=== PATIENT | female | born 1960 | race Caucasian/White ===

== ENCOUNTER 2016-11-04 12:03 | Inpatient (IN) | payer BC ==
[2016-11-04] MEDS ORDERED: Aspirin Low Dose CHEW TAB* 81 MG PO ONE (12:36)
[2016-11-04 12:54] LABS: Hematocrit 43 % (35-47); Hemoglobin 14.3 g/dl (12.0-16.0); Mean Corpuscular HGB Conc 33 g/dl (31-36); Mean Corpuscular Hemoglobin 31 pg (27-31); Mean Corpuscular Volume 93 fL (80-97); Mean Platelet Volume 8 um3 (7.4-10.4); Red Blood Count 4.65 10^6/ul (4.0-5.4); Red Cell Distribution Width 14 % (10.5-15); White Blood Count 13.9 10^3/ul (3.5-10.8)
[2016-11-04 12:55] LABS: Add Diff/Slide Review? Slide Review Added; Comments Flag Yes
[2016-11-04 13:06] LABS: Albumin 3.1 g/dL (3.2-5.2); BUN/Creatinine Ratio 32.1 (8-20); Calcium 8.9 mg/dL (8.6-10.3); EGFR African American 322.9 (>60); Globulin 2.4 g/dL (2-4); Potassium 4.3 mmol/L (3.5-5.0); Total Bilirubin 0.4 mg/dL (0.2-1.0); Total Protein 5.5 g/dL (6.4-8.9)
[2016-11-04 13:09] LABS: Troponin I 0.03 ng/mL (<0.04)
--- NOTE | 2016-11-04 13:11 | RAD ---
HISTORY: Shortness of breath COMPARISONS: March 21, 2009 VIEWS:1: Single frontal portable view of the chest at 1:00 PM FINDINGS: LINES AND TUBES: None. CARDIOMEDIASTINAL SILHOUETTE: Calcified hilar lymph nodes are noted PLEURA: The costophrenic angles are sharp. No pleural abnormalities are noted. LUNG PARENCHYMA: The lungs are clear. ABDOMEN: The upper abdomen is clear. There is no subphrenic gas. BONES AND SOFT TISSUES: No bone or soft tissue abnormalities are noted. IMPRESSION: NO ACTIVE CARDIOPULMONARY DISEASE.
[2016-11-04] MEDS ORDERED: Albuterol 2.5 MG/3 ML NEB.SOL* (0.083%) INH PRN (13:41)
[2016-11-04] MEDS ORDERED: Acetaminophen TAB* 325 MG PO PRN (13:41)
[2016-11-04] MEDS ORDERED: Dextrose 50% Syringe 50 ML* 25 GM/50 ML SYRINGE IV PUSH PRN (13:59)
[2016-11-04] MEDS ORDERED: LORazepam TAB(*) 1 MG PO SCH (14:00)
[2016-11-04] MEDS: Heparin VIAL(*) 5000 UNITS/ML VIAL (FIVE THOUSAND) SUBCUT SCH (15:09)
[2016-11-04] MEDS: predniSONE TAB* 20 MG PO SCH ×2 (15:10→20:53)
[2016-11-04] MEDS: HYDROcodone/ACETAMIN 5-325 MG* 1 TAB PO PRN (15:10)
[2016-11-04] MEDS: Albuterol/Ipratropium NEB.SOL* Albuterol 2.5 MG/Ipratropium 0.5 MG 3 ML INH SCH ×3 (15:17→20:57)
[2016-11-04] MEDS ORDERED: LORazepam INJ* 2 MG/ML 1 ML VIAL IV PUSH ONE (15:55)
[2016-11-04] MEDS ORDERED: ALPRAZolam TAB* 0.25 MG PO ONE (16:11)
[2016-11-04] MEDS ORDERED: Iohexol 350* (CONTRAST) 500 ML MDV IV ONE (16:12)
--- NOTE | 2016-11-04 17:18 | RAD ---
INDICATION: Short of breath. Weight loss. Abdominal pain. COMPARISON: None TECHNIQUE: Axial source images were obtained from the thoracic inlet to the symphysis pubis following administration of oral and intravenous contrast. 46 mL Omnipaque [address] angiographic technique was utilized for the chest. Coronal and sagittal reconstructed images were acquired. CHEST FINDINGS: Neck/thyroid: The visualized neck to include the thyroid appear normal. Chest wall: There are no acute abnormalities of the bony thorax or chest wall. There is diffuse subcutaneous edema There is no supraclavicular, infraclavicular, or axillary lymphadenopathy. Lungs : There are no pulmonary parenchymal masses or infiltrates. There is linear change left lung base most consistent with scarring or atelectasis. There are emphysematous changes. There are no endobronchial lesions. Cardiomediastinal structures: The heart is normal in size. There is no pericardial effusion. There is no evidence of aortic aneurysm or dissection. Opacification of the pulmonary artery is suboptimal and therefore only central pulmonary emboli are excluded. The examination will need to be repeated if there is persistent suspicion of acute pulmonary emboli. There is no mediastinal or hilar adenopathy. There are calcified mediastinal lymph nodes The esophagus appears normal. Pleura : There are no pleural-based masses or effusions. ABDOMINAL/PELVIC FINDINGS: Liver: The liver is normal in size. There are no masses. There is no ductal dilatation. Gallbladder: There are no calcified gallstones. There is no evidence of wall thickening or pericholecystic fluid. Spleen: The spleen is normal in size. There are no masses. Pancreas: There is mild pancreatic ductal dilatation. There is no abrupt change in pancreatic duct caliber. No pancreatic mass is identified. Adrenal glands: There is no evidence of adrenal mass. Kidneys: The kidneys are normal in size and position. There are prompt nephrograms and there is prompt excretion bilaterally. There are no renal parenchymal masses. There is no evidence of nephrolithiasis. Adenopathy: There is no evidence of adenopathy by size criteria. Fluid collections: There are no free or localized fluid collections. Vessels:There are atherosclerotic changes of the aorta. There is no focal aneurysm. The IVC is unremarkable GI tract: There are no acute CT bowel findings. There is no obstruction. The stomach and small bowel appear unremarkable. The lower GI tract demonstrates colonic redundancy with moderate retained stool but no other specific abnormalities. There is no obstruction. Pelvic organs: Calcified uterine leiomyomas. No adnexal mass. Bladder: The bladder is decompressed with Rojo catheter. Abdominal and pelvic soft tissues: The extraperitoneal abdominal and pelvic soft tissues appear normal.. Osseous structures: Spondylitic change lumbar spine with advanced narrowing about the lower 3 lumbar disc spaces. IMPRESSION: 1. Diffuse subcutaneous edema compatible with mild anasarca. 2. Emphysema. 3. Suboptimal examination evaluating for pulmonary emboli. Consider repeating the examination is this remains a clinical consideration. 4. Retained stool with colonic redundancy. 5. Uterine fibroids.
[2016-11-04] MEDS: Insulin LISPRO* 1 UNITS UNIT SUBCUT SCH (17:22)
[2016-11-04] MEDS: ALPRAZolam TAB* 0.25 MG PO SCH (20:52)
[2016-11-04] MEDS: Metoprolol Tartrate TAB* 25 MG PO SCH (20:53)
[2016-11-04] MEDS: Methadone TAB* 5 MG PO SCH (20:53)
[2016-11-04] MEDS: Insulin GLARGINE(*) 1 UNITS UNIT SUBCUT SCH (20:54)
[2016-11-04] MEDS: Mometasone/Formoter 200/5 MDI INH SCH (20:59)
[2016-11-05] MEDS: Albuterol/Ipratropium NEB.SOL* Albuterol 2.5 MG/Ipratropium 0.5 MG 3 ML INH SCH ×4 (01:49→14:45)
--- NOTE | 2016-11-05 03:17 | HP ---
HISTORY AND PHYSICAL: DATE OF ADMISSION: 11/04/16 PRIMARY CARE PROVIDER: Dr. Jules from [place]. ATTENDING PHYSICIAN WHILE IN THE HOSPITAL: Dr. Helder Hoffman *(report dictated by Сергей Leroy, ALLISON). CHIEF COMPLAINT: 1. Shortness of breath. 2. Weight loss. 3. Difficulty with fall. HISTORY OF PRESENT ILLNESS: Ms. Norwood is a 56-year-old female patient with a very complex medical history and multiple medical problems coming into the ER today stating that she recently was discharged from [place]. It is unclear what she was diagnosed with there, question of CHF possibly. She says that in August of 2016, she had swelling in her lower extremities and blistering to the lower extremities. Because the swelling got so bad, her legs were weeping. This went on for approximately 2 months. She says that it was just full of fluid. She went to [place] on the October 21, was there for about 6 days, and discharged. She says that she was qualified for hospice with Dr. Lam. She says that she was in the process of setting this up and unfortunately, she had progressive worsening shortness of breath. She says she is not set up with hospice just yet. She says that she has been coughing. Her breathing had been worse. She noticed that she was requiring more O2. She does have a pulse ox at home that was running low. She says that she was not orthopneic. She says that she has also been losing weight as well. She figured she has lost about 20 to 30 pounds unexpectedly and also she has noticed in the last week that she has had some trouble with swallowing. The patient states that these were her concerns that she decided to come into the [facility] for evaluation. She denied having any recent changes to her medications with the exception, it sounds like she recently was added on methadone twice a day. She does state that she had one episode of vomiting last week, but her biggest complaint was trouble swallowing and in fact that she was feeling short of breath. So, she came in, was evaluated by Dr. Licea, there was initially concern for CHF and we were asked to evaluate for admission. PAST MEDICAL HISTORY: Significant for: 1. Severe COPD, on chronic prednisone and also on oxygen. 2. Chronic pain. 3. Depression. 4. Anxiety. 5. Question of CHF. 6. Diabetes. 7. Hypertension. 8. History of PE. 9. Renal insufficiency. PAST SURGICAL HISTORY: She has had a D and C. HOME MEDICATIONS: Include: 1. Prednisone 20 mg p.o. t.i.d. I did ask her at 3 different occasions if this is what she was chronically taking. She says she has been on this dose for about 3 years. We will need to clarify this. 2. Methadone 5 mg p.o. b.i.d. 3. Zoloft 12.5 mg p.o. every morning. 4. Senna 2 tabs p.o. daily as needed. 5. AVERY-e 200 mg p.o. daily. 6. Potassium chloride 20 mEq p.o. daily. 7. Protonix 40 mg daily. 8. Lopressor 25 mg p.o. b.i.d. 9. Lisinopril 2.5 mg daily. 10. Lantus 18 units subcu b.i.d. 11. Lasix 20 mg p.o. daily. 12. Vitamin D2 800 units p.o. daily. 13. Xanax 0.125 mg p.o. daily at bedtime. 14. Albuterol sulfate 1 puff inhaled every 4 hours to 6 hours as needed. ALLERGIES TO MEDICATIONS: Include MORPHINE, PENICILLIN, LYRICA. FAMILY HISTORY: She is adopted. SOCIAL HISTORY: She was a smoker for a pack a day for about 20 years. She does drink 2 beers daily. She is , with children. Surrogate decision maker is her . REVIEW OF SYSTEMS: There is a significant weight change. She denies having any double vision. There is no ear discharge. She denies having any rhinorrhea. There was no sore throat. There was no thyroid enlargement. She denies having any chest pain. There is no orthopnea. There is dyspnea on exertion. There was nausea with vomiting. No dysuria, no frequency. She denied having any loss of conscious. No pruritus. There are skin ulcerations. Again, she does admit to having blisters to her bilateral lower feet. PHYSICAL EXAMINATION GENERAL: At this time, Ms. Norwood is a 56-year-old female patient. She appears to be chronically ill. She is cachectic. She is sitting in the ER stretcher. She does not appear to be in any acute respiratory distress. VITAL SIGNS: Reveal blood pressure 129/67 with a pulse of 110, respirations 22 , O2 sat 96%, and temperature 98.8. HEENT: Head: Atraumatic and normocephalic. Eyes: Sclerae are anicteric and not pale. Throat: Oral mucosa appears to be moist. No oropharyngeal erythema. NECK: Supple. LUNGS: Diminished throughout. She had wheeze noted in the upper lobes. Equal diaphragmatic expansion. HEART: Sounds S1, S2. Regular rate and rhythm. ABDOMEN: Soft, flat, and nontender. Bowel sounds present. EXTREMITIES: Pulses were 2+ throughout. They did appear to be mottled. She is able to move all 4 extremities. She does have 5/5 strength. NEUROLOGIC: She is awake, she is alert, and she is oriented x3. Family Court Counsellor are equal. Tongue midline. She had no gross focal deficits. SKIN: She has noted old healing blisters to the top of both of her feet. She has multiple areas of ecchymosis throughout her skin. Her skin does appear to be mottled to her lower extremities. DIAGNOSTIC STUDIES/LAB DATA: Today reveals a WBC of 13.9, RBC of 4.65, hemoglobin 14.3, hematocrit 43, and a platelet count of 291. The sodium was 133 , potassium was 4.3, chloride of 90, her bicarb was 42, BUN 9, creatinine of 0.98, glucose 144, lactate 1.2, calcium 8.9. Total bili 0.4, AST 16, ALT 33, alk phos 122. Troponin 0.03. BNP 574. Albumin of 3.1. She had a chest x-ray obtained today and on my review, I do not appreciate any acute infiltrates. Radiology read it as no active cardiopulmonary disease. She did have an EKG as well today. Unfortunately, I do not have a previous record for comparison. Shows a sinus tachycardia, rate of 103. She does have significantly in leads II, III, and aVF. Her P waves are peaked and large suggestive of increased pulmonary hypertension. Old medical records were reviewed. ASSESSMENT AND PLAN: Ms. Norwood is a 56-year-old female patient who appears to be chronically ill, coming to the ER today with complaints of shortness of breath. In addition to this, complains of dysphagia. She will be admitted under inpatient status for: 1. Shortness of breath: I suspect the etiology of this is related to her severe chronic obstructive pulmonary disease and possible exacerbation. I am going to check her for the flu. I would like to because of her EKG. Check a CTA of the chest to make sure there is no underlying pulmonary embolism. I also would like to continue her steroids, continue Dulera, continue nebs around the clock, pulmonary toileting. She appears to have end-stage chronic obstructive pulmonary disease. I do think I am going to have our hospice team evaluate her as well. They will continue to follow. 2. Dysphagia with weight loss: Again, at this point, the patient does appear to be cachectic. I am concerned that there may be an underlying malignancy. I would like to start out with a swallow eval, upper GI series to evaluate this dysphagia. I also think that she may need to see GI at some point, but for now, we will start out with these 2 tests. I am also going to get a CTA of the chest , abdomen, and pelvis as well as she did have some nausea, vomiting last week. In addition to this, she has been having more and more shortness of breath. She is tachycardic and she does have some pretty significant P waves on her EKG. I would like to evaluate her chest, abdomen, and pelvis to make sure there are not any underlying malignancy or mass that may be contributing to her overall status of her health. 3. Chronic pain: Continue meds as prescribed. 4. Depression and anxiety: Continue meds as prescribed. I have also ordered Social Work consult. 5. Hypertension: Continue her home medications. 6. Diabetes: Continue lispro sliding scale. 7. Anxiety: Continue meds as prescribed. 8. History of congestive heart failure: I am getting an echo. She appears to be dry at this point. I am not going to hydrate her, but I am going to hold her Lasix and we will diurese her as needed. 9. Renal insufficiency: We will continue her steroids as prescribed. I am going to get records from Dr. Jules and Dr. Lam from [place] and [facility] records as well to see what her last discharge medical record looked like to see what happened at the hospital there over there and also to see what her workups have been thus far. 10. History of pulmonary embolism: She will be on heparin subcu. We are getting a CTA to reevaluate this. 11. DVT prophylaxis: High risk. We will go ahead and place her on heparin subcu. 12. Code status: She is considering DNR/DNI. She has not signed a MOLST as of this point, but she is considering to sign, as I did discuss with her her prognosis appears to be overall poor and with her severe chronic obstructive pulmonary disease, CPR and resuscitation would most likely be futile and she is considering DNR/DNI. 13. Fluids, electrolytes, and nutrition: She can have a regular diet. TIME SPENT: On the admission was 70 minutes; greater than half the time was spent [id number] with the patient obtaining my history and physical, other half the time spent going over the plan of care with the patient and implementing plan of care. I did discuss the plan of care with my attending, Dr. Hoffman; he is in agreement. СЕРГЕЙ LEROY NP CC: Dr. Jules * [id number]/CPS #: [id number] DEVYN
[2016-11-05] MEDS: Heparin VIAL(*) 5000 UNITS/ML VIAL (FIVE THOUSAND) SUBCUT SCH ×4 (03:48→20:57)
[2016-11-05] MEDS: HYDROcodone/ACETAMIN 5-325 MG* 1 TAB PO PRN ×2 (05:53→18:05)
[2016-11-05 05:56] LABS: Hematocrit 41 % (35-47); Hemoglobin 13.7 g/dl (12.0-16.0); Mean Corpuscular HGB Conc 34 g/dl (31-36); Mean Corpuscular Hemoglobin 31 pg (27-31); Mean Corpuscular Volume 93 fL (80-97); Mean Platelet Volume 7 um3 (7.4-10.4); Red Blood Count 4.39 10^6/ul (4.0-5.4); Red Cell Distribution Width 14 % (10.5-15); White Blood Count 10.6 10^3/ul (3.5-10.8)
[2016-11-05 06:08] LABS: Calcium 8.8 mg/dL (8.6-10.3); EGFR African American 276.7 (>60); EGFR Non-African American 215.2 (>60); Potassium 4.2 mmol/L (3.5-5.0)
[2016-11-05] MEDS: Insulin GLARGINE(*) 1 UNITS UNIT SUBCUT SCH (09:46)
[2016-11-05] MEDS: Insulin LISPRO* 1 UNITS UNIT SUBCUT SCH ×3 (09:46→18:04)
[2016-11-05] MEDS: Lisinopril TAB* 5 MG PO SCH (09:52)
[2016-11-05] MEDS: Thiamine TAB* 100 MG TAB PO SCH (09:52)
[2016-11-05] MEDS: Omeprazole CAP* 20 MG PO SCH (09:52)
[2016-11-05] MEDS: Methadone TAB* 5 MG PO SCH ×2 (09:53→20:55)
[2016-11-05] MEDS: Metoprolol Tartrate TAB* 25 MG PO SCH ×2 (09:53→20:56)
[2016-11-05] MEDS: Folic Acid TAB* 1 MG PO SCH (09:54)
[2016-11-05] MEDS: Sertraline* 25 MG TAB PO SCH (09:54)
[2016-11-05] MEDS: predniSONE TAB* 20 MG PO SCH ×3 (09:55→20:57)
[2016-11-05] MEDS: Potassium Chlor TAB* 20 MEQ TAB.ER PO SCH (09:55)
[2016-11-05] MEDS: Mometasone/Formoter 200/5 MDI INH SCH ×2 (10:20→21:49)
--- NOTE | 2016-11-05 10:39 | ECHO ---
Patient: ANA JAMISON [facility] Rec#: [id number] : 1960 Date: 11/05/2016 Age: 56y Height: 157.5 cm / 62.0 in Weight: 38.6 kg / 85.1 lbs Sex: F BSA: 1.33 Room#: 412 Admit Date#: 11/04/2016 Type: Inpatient Referring: Сергей Leroy NP Reading: Rao Blood MD Attending Urologist: Mariangel Garcia RN RDCS Transthoracic Echocardiogram Indication: Shortness of breath BP: 123/84 HR: 97 Rhythm: NSR Findings History: Severe COPD, chronic prednisone use, DM, HTN, PE, former smoker, renal insufficiency Technical Comments: The study is technically limited due to patient body habitus. The study is technically limited due to the patient's history of COPD. Completed at 0940. The study is technically limited due to the patient's smoking history. Left Ventricle: The left ventricular chamber size is normal. Mild concentric left ventricular hypertrophy is observed. There is global hypokinesis of the left ventricle with minor regional variation.The upper interventricular septum appears more hypokinetic than the low posterolateral wall. There is mild to moderately decreased left ventricular systolic function. The estimated ejection fraction is 40-45%. There is an E to A reversal in the mitral valve flow pattern suggestive of diastolic dysfunction. Left Atrium: The left atrial chamber size is normal. Right Ventricle: The right ventricle wall thickness is mildly increased. The right ventricular cavity size is normal. The right ventricular global systolic function is mildly to moderately reduced. Right Atrium: The right atrial cavity size is normal. Aortic Valve: The aortic valve structure is not well visualized. The aortic valve leaflets are mildly thickened. There is no evidence of aortic regurgitation. There is no evidence of aortic stenosis. Mitral Valve: There is mitral annular calcification. The mitral valve leaflets are mildly thickened. There is a trace of mitral regurgitation. There is no evidence of mitral stenosis. Tricuspid Valve: The tricuspid valve leaflets are normal. There is trace tricuspid regurgitation. Unable to estimate the right ventricular systolic pressure. Pulmonic Valve: The pulmonic valve structure is not well visualized. Pericardium: The pericardial effusion is seen adjacent to the right ventricle. A pericardial fat pad is visualized. Aorta: The ascending aorta is not well visualized. The aortic arch is not well visualized. There is no dilation of the aortic root. Pulmonary Artery: The main pulmonary artery is not well visualized. Venous: The inferior vena cava appears normal in size. There is a greater than 50% respiratory change in the inferior vena cava dimension. Conclusions Mild concentric left ventricular hypertrophy is observed. There is global hypokinesis of the left ventricle with minor regional variation.The upper interventricular septum appears more hypokinetic than the low posterolateral wall. There is mild to moderately decreased left ventricular systolic function. The estimated ejection fraction is 40-45%. No signficant valvular disease: There is a trace of mitral regurgitation. There is trace tricuspid regurgitation. No reports of prior studies offered for comparison. Measurements Name Value Normal Range RVDdMajor (2D) 2.7 cm (2.2 - 4.4) RAd ISD 4CH 4.1 cm (3.4 - 4.9) RA (A4C)W 3.5 cm (2.9 - 4.6) IVSd (2D) 1.1 cm (0.6 - 1) LVPWd (2D) 1.1 cm (0.6 - 1) LVIDd (2D) 4 cm (3.6 - 5.4) LVIDs (2D) 3.2 cm - LV FS (2D) 20 % (25 - 45) Aortic Annulus 2.2 cm (1.4 - 2.6) Ao root diameter (2D) 2.8 cm (2.1 - 3.5) LA dimension (AP) 2D 2.5 cm (2.3 - 3.8) LAd ISD 4CH 3.9 cm (2.9 - 5.3) LA ISD 4CH W 3.6 cm (2.5 - 4.5) Name Value Normal Range LA ESV SP 4CH (A/L) 31 ml - LA ESV SP 2CH (A/L) 23 ml - LA ESV BP (A/L) 28 ml - LA ESV BP (A/L) index 20.7 ml/m2 - LA ESV SP 4CH (MOD) 30 ml - LA ESV SP 2CH (MOD) 24 ml - Name Value Normal Range MV E-wave Vmax 0.59 m/sec - MV deceleration time 179 msec - MV A-wave Vmax 0.78 m/sec - MV E:A ratio 0.76 ratio - LV septal e' Vmax 0.06 m/sec - LV lateral e' Vmax 0.06 m/sec - LV E:e' septal ratio 9.8 ratio - LV E:e' lateral ratio 9.8 ratio - Name Value Normal Range AV Vmax 1.1 m/sec - LVOT Vmax 0.92 m/sec - Name Value Normal Range IVC diameter 1.1 cm - Name Value Normal Range PV Vmax 0.71 m/sec -
[2016-11-05] MEDS ORDERED: Dextrose 50% Syringe 50 ML* 25 GM/50 ML SYRINGE IV PUSH PRN (12:11)
--- NOTE | 2016-11-05 12:24 | PN ---
Subjective Date of Service: 11/05/16 Interval History: . Patient is alert and oriented x3 sitting up in bed in [facility]. She reports she feels better today reporting her "difficulty swallowing" has resolved and is secondary to "being congested". Patient reports SOB but states she is at her baseline. She reports occasional productive cough with white sputum. No fevers or chills. Denies CP. Reports her LE are very painful to touch or when she stands. Her biggest c/o is that she is weak. Denies dysuria, hematuria increased frequency. No abdominal pain. Reports she is hungry and wants to eat. She reports she was not ready to be discharged home from [place] and thinks she was DC home to soon. The patients works and it has been very difficult at home caring for her. The patient now would like to go to subacute rehab. When asked what her goals for her health she states "I know I am sick and most likely will not ever have a healthy body or get better". She then tells me she is "tired and wants to talk later" when her is here. She would like to meet with Palliative again but states "maybe tomorrow or Wednesday, its already 1pm". She reports she is a DNR/DNI but kenney s not want to sign the MOSLT until her is. Objective Active Medications: Acetaminophen (Tylenol Tab*) 650 mg PO Q4H PRN PRN Reason: FEVER/PAIN Acetaminophen/Hydrocodone Bitart ([place] 5-325 Tab*) 1 tab PO Q4H PRN PRN Reason: PAIN Last Admin: 11/05/16 05:53 Dose: 0.5 tab Albuterol (Ventolin 2.5 Mg/3 Ml Neb.Myra*) 2.5 mg INH Q2H PRN PRN Reason: SOB/WHEEZING Albuterol/Ipratropium (Duoneb Neb.Myra*) 1 neb INH Q4H YANELY Last Admin: 11/05/16 10:20 Dose: 1 neb Alprazolam (Xanax Tab*) 0.125 mg PO BEDTIME YANELY Last Admin: 11/04/16 20:52 Dose: 0.125 mg Dextrose (D50w Syringe 50 Ml*) 12.5 gm IV PUSH .FOR FS < 60 - SS PRN PRN Reason: FS < 60 Folic Acid (Folvite Tab*) 1 mg PO DAILY [facility] Last Admin: 11/05/16 09:54 Dose: 1 mg Heparin Sodium (Porcine) (Heparin Vial(*)) 5,000 units SUBCUT Q8HR [facility] Last Admin: 11/05/16 04:59 Dose: 5,000 units Insulin Glargine (Lantus(*)) 18 units SUBCUT BID [facility] Last Admin: 11/05/16 09:46 Dose: 18 unit Insulin Human Lispro (Humalog*) 0 units SUBCUT AC [facility] PRN Reason: Protocol Last Admin: 11/05/16 09:46 Dose: Not Given Lisinopril (Prinivil Tab*) 2.5 mg PO DAILY [facility] Last Admin: 11/05/16 09:52 Dose: 2.5 mg Lorazepam (Ativan Tab(*)) 0 mg PO .PER WAM SCORE [facility] PRN Reason: Protocol Methadone HCl (Dolophine Tab*) 5 mg PO BID [facility] Last Admin: 11/05/16 09:53 Dose: 5 mg Metoprolol Tartrate (Lopressor Tab*) 25 mg PO BID [facility] Last Admin: 11/05/16 09:53 Dose: 25 mg Mometasone Furoate/Formoterol Fumar (Dulera 200/5 Mdi*) 2 puff INH BID [facility] Last Admin: 11/05/16 10:20 Dose: 2 puff Multivitamins/Minerals (Theragran/Minerals Tab*) 1 tab PO DAILY [facility] Omeprazole (Prilosec Cap*) 20 mg PO DAILY@0730 [facility] Last Admin: 11/05/16 09:52 Dose: 20 mg Ondansetron HCl (Zofran Inj*) 4 mg IV Q6H PRN PRN Reason: NAUSEA Potassium Chloride (Klor Con Er Tab*) 20 meq PO DAILY [facility] Last Admin: 11/05/16 09:55 Dose: 20 meq Prednisone (Deltasone Tab*) 20 mg PO TID [facility] Last Admin: 11/05/16 09:55 Dose: 20 mg Senna (Senokot Tab*) 2 tab PO DAILY PRN PRN Reason: CONSTIPATION Sertraline HCl (Zoloft*) 12.5 mg PO QAM [facility] Last Admin: 11/05/16 09:54 Dose: 12.5 mg Thiamine HCl (Vitamin B-1 Tab*) 100 mg PO DAILY [facility] Last Admin: 11/05/16 09:52 Dose: 100 mg Vital Signs 11/04/16 11/04/16 11/04/16 14:00 14:56 15:10 Temperature 98.5 F Pulse Rate 98 109 Respiratory 16 20 20 Rate Blood Pressure 145/80 145/96 (mmHg) O2 Sat by Pulse 100 100 Oximetry 11/04/16 11/04/16 11/04/16 16:18 16:45 16:56 Temperature 98.5 F Pulse Rate 107 Respiratory 20 20 20 Rate Blood Pressure 145/96 (mmHg) O2 Sat by Pulse 100 Oximetry 11/04/16 11/04/16 11/04/16 17:10 17:22 18:08 Temperature Pulse Rate Respiratory 20 20 Rate Blood Pressure (mmHg) O2 Sat by Pulse 100 Oximetry 11/04/16 11/04/16 11/04/16 20:00 20:52 20:53 Temperature Pulse Rate 111 Respiratory 20 20 20 Rate Blood Pressure (mmHg) O2 Sat by Pulse 98 Oximetry 11/04/16 11/04/16 11/04/16 20:55 22:52 23:40 Temperature 98.4 F Pulse Rate 105 101 Respiratory 20 16 16 Rate Blood Pressure 149/76 130/49 (mmHg) O2 Sat by Pulse 99 98 Oximetry 11/05/16 11/05/16 11/05/16 00:00 03:21 05:23 Temperature 98.2 F Pulse Rate 92 100 Respiratory 16 16 Rate Blood Pressure 123/84 (mmHg) O2 Sat by Pulse 98 100 98 Oximetry 11/05/16 11/05/16 11/05/16 05:53 07:20 07:53 Temperature 98.3 F Pulse Rate 100 Respiratory 20 15 8 Rate Blood Pressure 133/71 (mmHg) O2 Sat by Pulse 99 Oximetry 11/05/16 11/05/16 11/05/16 08:00 09:53 10:23 Temperature Pulse Rate 92 Respiratory 18 16 14 Rate Blood Pressure (mmHg) O2 Sat by Pulse 98 Oximetry Oxygen Devices in Use Now: Nasal Cannula - 3L NC Appearance: 56 yo cachetic female laying in bed A+Ox3 in NAD Result Diagrams: 11/05/16 05:21 11/05/16 05:21 Microbiology and Other Data: Microbiology 11/04/16 14:05 Influenza Types A,B Antigen (MARKUS) - Final Nasal Specimen received for Influenza A/B Molecular testing Assess/Plan/Problems-Billing Assessment: 56 yo female patient who has a PMH of 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 She was discharged from [place] about 1 week ago and reports she and her are unable to care for her in the home setting - Patient Problems (1) Acute on chronic respiratory failure with hypercapnia Comment: - Possible exacerbation on admission, now appears to be at baseline, on 3L oxygen. - Continue home inhalers. (2) Dysphagia Comment: - Pt denies compliants today. - Speech pathology swallow eval wnls. (3) Cachexia Comment: - She has apparent muscle wasting and is very thin weighing 95lbs. Protein is 5.5, ALbumin 3.1. Suspect secondary to end-stage COPD and malnutrition, possible metastatic process? Pt states she does not want a work-up for cancer now due to "too much going on". Chest/Abd/Pelvis CTA showing no masses. - In reviewing the notes from [place], the patient had refused PT evaluation so the decision was made to send the patient home with her who accepted care of the patient, now requiring too much care to be taken care of safely at home. - PT/OT eval. - Nutrition Eval. - check pre-albumin tomorrow (4) Cardiomyopathy Comment: - Cardiology consult in [facility] last week for CHF, CP and new cardiomyopathy with LVEF 20%, thought to be Takosubos. - TTE 11/05 showing EF 40-45%, no significant valvular disease, trace MR and TR, LVH - Continue Gerry, BB. Hold lasix, pt appears dry - Daily weights (5) Diabetes Comment: - Steroid induced DM? - Pt noted to have glucose 34 today, was asyptomatic, she was given an amp of D5 (she was NPO after midnight). - changed Lantus to Once daily and decreased dose to 10 units Qpm. - Continue FSBG AC. (6) Chronic pain Comment: - continue Methadone. Recently started by Palliative physican in [place]. (7) Depression with anxiety Comment: - continue zoloft and xanax. - recent psych consult in [place], please see detailed note in chart (8) DVT prophylaxis Comment: HSQ (9) DNR (do not resuscitate) Comment: DNR/DNI MOLST on chart Status and Disposition: Inpatient with acute on chronic respiratory failure. Plan for palliative consult. Social work following. Is not safe to return home
[2016-11-05] MEDS ORDERED: Albuterol/Ipratropium NEB.SOL* Albuterol 2.5 MG/Ipratropium 0.5 MG 3 ML INH PRN (14:05)
[2016-11-05 14:50] LABS: TSH (Thyroid Stimulating Horm) 0.55 mcIU/mL (0.34-5.60)
[2016-11-05] MEDS: Multivitamins/Minerals TAB PO SCH (15:16)
[2016-11-05] MEDS: Ondansetron INJ* 2 MG/ML VIAL IV PRN (20:53)
[2016-11-05] MEDS: ALPRAZolam TAB* 0.25 MG PO SCH (20:55)
--- NOTE | 2016-11-05 21:31 | CONS ---
PALLIATIVE CARE CONSULTATION: DATE OF CONSULT: 11/05/16 PRIMARY CARE PHYSICIAN: Lisa Jules MD REQUESTING PROVIDER FOR CONSULT: Сергей Leroy NP REASON FOR CONSULT: Evaluation for palliative care/hospice. HISTORY OF PRESENT ILLNESS: This is a 56-year-old with a past medical history of COPD, on chronic prednisone at 60 mg per day and oxygen at 3 L with chronic pain, who presented to the emergency room after being home for a week from [facility] with progressive weakness, shortness of breath, and pain. On my encounter with the patient and her , Scott, who is her healthcare proxy, the patient states she had a very difficult hospitalization from October 21 to October 27 for her breathing and heart failure. She states that she did participate in physical therapy and wanted to go to rehab, but was told she did not participate enough to be eligible for short-term rehab and thus was discharged home. She did see palliative care, Dr. Luna, there, who stated she was eligible for hospice. The patient was not interested in hospice at that time and the patient felt that she had an unsafe discharge. She has been home for a week and did not do well. She has had decrease in appetite, weakness, difficulty ambulating with significant amount of pain on her feet and shortness of breath. Regarding her prednisone, she states she has been on 20 mg t.i.d. for the past 7 to 10 years with inability to be able to be tapered down despite efforts from her primary care physician and battery plate remover. As a result, she has developed diabetes and neuropathy from poorly controlled diabetes. The patient states her pain is controlled right now. The methadone works well and her breathing has been a challenge. She has difficulty with ambulating with shortness of breath and weakness even with sitting up in bed. Otherwise, remaining review of systems is negative. PAST MEDICAL HISTORY: 1. End-stage COPD, on chronic prednisone 60 mg per day and 3 L of oxygen continuous. 2. Chronic pain. 3. Depression. 4. Anxiety. 5. History of non-ischemic cardiomyopathy with ejection fraction of 20%, now repeat echocardiogram during this hospitalization shows an ejection fraction of 40% to 45%. 6. 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 7. Chronic wounds with poor wound healing in her lower extremities. 8. Cushingoid appearance. 9. Hypertension. 10. History of PE. 11. History of renal insufficiency. HOME MEDICATIONS: 1. Prednisone 20 mg p.o. t.i.d. 2. Methadone 5 mg p.o. b.i.d. 3. Zoloft 12.5 mg p.o. every morning. 4. Senna 2 tabs daily as needed. 5. AVERY-e 200 mg p.o. daily. 6. Potassium chloride 20 mEq p.o. daily. 7. Protonix 40 mg daily. 8. Lopressor 25 mg p.o. b.i.d. 9. Lisinopril 2.5 mg p.o. daily. 10. Lantus 18 units subcu b.i.d. 11. Lasix 20 mg p.o. daily. 12. Vitamin D 800 units daily. 13. Xanax 0.125 mg p.o. daily at bedtime. 14. Albuterol inhaler every 4 hours as needed. ALLERGIES: MORPHINE, PENICILLIN, and PREGABALIN. FAMILY HISTORY: She is adopted, unknown. SOCIAL HISTORY: As mentioned, the patient lives at home with her , Scott , who is her healthcare proxy. She was a heavy smoker. She states she quit 3 months ago. She was smoking a pack per day for 20 years. She did state she smoked a few cigarettes this past week because she felt sad about how deconditioned she has become. She was also drinking 2 to 3 glasses of beer or wine per day up until 3 months ago. She brought her MOLST form stating she is DNR/DNI. She still wants to be DNR/DNI and this was confirmed with her and her . REVIEW OF SYSTEMS: As mentioned in the HPI. PHYSICAL EXAM: Vitals: Temperature is 97.4, pulse rate 76, respiratory rate 18 , oxygen saturation 100% on 3 L, blood pressure 119/59. General: Frail female in mild respiratory distress with cushingoid appearance. Her is at the bedside. HEENT: As mentioned cushingoid features. Pupils are pinpoint, reactive, anicteric. Head: Normocephalic. Oropharynx: Mucous membranes are moist. No erythema or exudate. Neck: No lymphadenopathy. No nuchal rigidity. Cardiac: Regular rate and rhythm. No murmurs, rubs, or gallops. Respiratory: Poor aeration. Prolonged expiratory phase. No wheezing, rhonchi , or rales appreciated. Abdomen: Soft, nontender, nondistended. Extremities: The patient with chronic ecchymotic changes in her lower extremities with what appears to be venous insufficiency and chronic open ulcerated, blistered lesions on the dorsum in the plantar surfaces of her feet. Distal pulses. No edema. Neurological: Alert and oriented x3. Generalized weakness. No focal neurologic deficits. DIAGNOSTIC STUDIES/LAB DATA: White count 10.6, hemoglobin 13.7, hemoglobin 41, platelets 271. Sodium 123, potassium 4.2, chloride 88, bicarb 44, BUN 8, creatinine 0.32, glucose 181. Flu was negative. Radiographic data: The patient had a chest, abdomen, and pelvis CTA. Diffuse subcutaneous edema compatible with mild anasarca, emphysema, suboptimal examination evaluating for pulmonary emboli. Consider repeat exam as this remains a clinical consideration. Retained stool with colonic redundancy, uterine fibroids. Echocardiogram: Global hypokinesis of the left ventricle with minor regional variation. Estimated EF is 40% to 45%, unable to evaluate pulmonary artery pressure. ASSESSMENT: This is a 56-year-old female with a past medical history of end- stage chronic obstructive pulmonary disease, on chronic prednisone and 3 L of oxygen who presents to the emergency after being home for a week after being hospitalized at [place] for acute decompensated heart failure and chronic obstructive pulmonary disease exacerbation with progressive weakness, shortness of breath, and pain. The patient states that she wants to go to short-term rehab. She discussed that her pain is well controlled with the methadone currently and she tries to only take the oxycodone as needed in limited amounts. We discussed advanced care planning. She confirms that she is a DNR/ DNI. She states she wants to give short-term rehab a chance and discussed that if she does not do well and it does not improve her quality of life, then she will enroll with hospice and she wants to follow up with Dr. Luna at [facility]. Discussed getting wound care involved as she states she had excellent wound care at [facility]. The patient is planning to be a participant in Physical Therapy to be evaluated for subacute rehab. Continue her pain regimen as prescribed. Consider going up on methadone if needed, but does not appear to be necessary at this time. Thank you for this consultation. I will follow along with you. PATIENT TIME: Greater than 60 minutes spent doing this consultation, more than half the time spent in direct patient contact. CC: Lisa uJles MD * [id number]/CPS #: [id number] DEVYN
[2016-11-06] MEDS: HYDROcodone/ACETAMIN 5-325 MG* 1 TAB PO PRN ×3 (04:21→18:03)
[2016-11-06] MEDS: Heparin VIAL(*) 5000 UNITS/ML VIAL (FIVE THOUSAND) SUBCUT SCH ×3 (06:12→21:18)
[2016-11-06 06:53] LABS: Calcium 8.9 mg/dL (8.6-10.3); EGFR African American 298.1 (>60); EGFR Non-African American 231.8 (>60); Potassium 4.7 mmol/L (3.5-5.0)
[2016-11-06 06:56] LABS: Hematocrit 42 % (35-47); Hemoglobin 13.9 g/dl (12.0-16.0); Mean Corpuscular HGB Conc 33 g/dl (31-36); Mean Corpuscular Hemoglobin 31 pg (27-31); Mean Corpuscular Volume 93 fL (80-97); Mean Platelet Volume 8 um3 (7.4-10.4); Red Blood Count 4.48 10^6/ul (4.0-5.4); Red Cell Distribution Width 14 % (10.5-15); White Blood Count 11.2 10^3/ul (3.5-10.8)
[2016-11-06] MEDS: Insulin LISPRO* 1 UNITS UNIT SUBCUT SCH ×3 (08:17→17:53)
[2016-11-06] MEDS: Mometasone/Formoter 200/5 MDI INH SCH ×2 (08:21→21:17)
[2016-11-06] MEDS: Lisinopril TAB* 5 MG PO SCH (08:30)
[2016-11-06] MEDS: Ondansetron INJ* 2 MG/ML VIAL IV PRN ×2 (08:31→21:09)
[2016-11-06] MEDS: Multivitamins/Minerals TAB PO SCH (08:31)
[2016-11-06] MEDS: Folic Acid TAB* 1 MG PO SCH (08:31)
[2016-11-06] MEDS: Metoprolol Tartrate TAB* 25 MG PO SCH ×2 (08:32→21:17)
[2016-11-06] MEDS: Omeprazole CAP* 20 MG PO SCH (08:32)
[2016-11-06] MEDS: Sertraline* 25 MG TAB PO SCH (08:32)
[2016-11-06] MEDS: Methadone TAB* 5 MG PO SCH ×2 (08:32→20:53)
[2016-11-06] MEDS: Thiamine TAB* 100 MG TAB PO SCH (08:33)
[2016-11-06] MEDS: predniSONE TAB* 20 MG PO SCH ×4 (08:33→17:53)
[2016-11-06] MEDS: Potassium Chlor TAB* 20 MEQ TAB.ER PO SCH (10:01)
--- NOTE | 2016-11-06 14:45 | PN ---
Subjective Date of Service: 11/06/16 Interval History: Patient seen and examined at bedside. She initially reports, "I'm feeling better than I was, so much better than Dayday." She then reports feeling tired and "not sleeping x 24 hours" due to her steroid dose being too late. She states, "I'm going to go to rehab and try to get stronger so I can go home." Later on in the conversation she states, "I'm going to go home with hospice and rehab." We discussed that this is not a likely situation and that the patient had previously agreed to a plan of rehab, prior to initiating hospice. She then states, "I don't remember anything, I'm so tired." She asked to speak to the pillowcase sewer and palliative care team again. In terms of complaints, she reports generalized pain from her skin but is excited to speak with wound care. She denies CP or increased SOB. She denies abd pain, n/v. Patient stated she was in too much pain to allow me to listen to her posteriorly. Family History: Unchanged from Admission Social History: Unchanged from Admission Past Medical History: Unchanged from Admission Objective Active Medications: Acetaminophen (Tylenol Tab*) 650 mg PO Q4H PRN PRN Reason: FEVER/PAIN Acetaminophen/Hydrocodone Bitart ([place] 5-325 Tab*) 1 tab PO Q4H PRN PRN Reason: PAIN Last Admin: 11/06/16 13:16 Dose: 0.5 tab Albuterol (Ventolin 2.5 Mg/3 Ml Neb.Myra*) 2.5 mg INH Q2H PRN PRN Reason: SOB/WHEEZING Albuterol/Ipratropium (Duoneb Neb.Myra*) 1 neb INH Q4H PRN PRN Reason: SOB/WHEEZING Alprazolam (Xanax Tab*) 0.125 mg PO BEDTIME YANELY Last Admin: 11/05/16 20:55 Dose: 0.125 mg Dextrose (D50w Syringe 50 Ml*) 12.5 gm IV PUSH .FOR FS < 60 - SS PRN PRN Reason: FS < 60 Folic Acid (Folvite Tab*) 1 mg PO DAILY [facility] Last Admin: 11/06/16 08:31 Dose: 1 mg Heparin Sodium (Porcine) (Heparin Vial(*)) 5,000 units SUBCUT Q8HR YANELY Last Admin: 11/06/16 13:15 Dose: 5,000 units Insulin Glargine (Lantus(*)) 10 units SUBCUT Q24H [facility] Insulin Human Lispro (Humalog*) 0 units SUBCUT AC [facility] PRN Reason: Protocol Last Admin: 11/06/16 11:52 Dose: 1 unit Lisinopril (Prinivil Tab*) 2.5 mg PO DAILY [facility] Last Admin: 11/06/16 08:30 Dose: 2.5 mg Methadone HCl (Dolophine Tab*) 5 mg PO BID [facility] Last Admin: 11/06/16 08:32 Dose: 5 mg Metoprolol Tartrate (Lopressor Tab*) 25 mg PO BID [facility] Last Admin: 11/06/16 08:32 Dose: 25 mg Mometasone Furoate/Formoterol Fumar (Dulera 200/5 Mdi*) 2 puff INH BID [facility] Last Admin: 11/06/16 08:21 Dose: 2 puff Multivitamins/Minerals (Theragran/Minerals Tab*) 1 tab PO DAILY [facility] Last Admin: 11/06/16 08:31 Dose: 1 tab Omeprazole (Prilosec Cap*) 20 mg PO DAILY@0730 [facility] Last Admin: 11/06/16 08:32 Dose: 20 mg Ondansetron HCl (Zofran Inj*) 4 mg IV Q6H PRN PRN Reason: NAUSEA Last Admin: 11/06/16 08:31 Dose: 4 mg Potassium Chloride (Klor Con Er Tab*) 20 meq PO DAILY [facility] Last Admin: 11/06/16 10:01 Dose: 20 meq Prednisone (Deltasone Tab*) 20 mg PO 0600,1400,1800 [facility] Last Admin: 11/06/16 13:56 Dose: Not Given Senna (Senokot Tab*) 2 tab PO DAILY PRN PRN Reason: CONSTIPATION Sertraline HCl (Zoloft*) 12.5 mg PO QAM [facility] Last Admin: 11/06/16 08:32 Dose: 12.5 mg Thiamine HCl (Vitamin B-1 Tab*) 100 mg PO DAILY [facility] Last Admin: 11/06/16 08:33 Dose: 100 mg Vital Signs 11/05/16 11/05/16 11/05/16 16:24 18:05 18:49 Temperature 97.3 F Pulse Rate 93 Respiratory 18 16 Rate Blood Pressure (mmHg) O2 Sat by Pulse 99 99 Oximetry 11/05/16 11/05/16 11/05/16 19:17 20:00 20:05 Temperature 99.3 F Pulse Rate 89 92 Respiratory 16 16 16 Rate Blood Pressure 121/64 (mmHg) O2 Sat by Pulse 97 97 Oximetry 11/05/16 11/05/16 11/05/16 20:55 22:55 23:21 Temperature 98.3 F Pulse Rate 75 Respiratory 16 20 16 Rate Blood Pressure 134/54 (mmHg) O2 Sat by Pulse 97 Oximetry 11/06/16 11/06/16 11/06/16 00:00 04:21 06:21 Temperature Pulse Rate Respiratory 16 18 Rate Blood Pressure (mmHg) O2 Sat by Pulse 97 Oximetry 11/06/16 11/06/16 11/06/16 07:26 08:00 08:23 Temperature 98.6 F Pulse Rate 105 95 Respiratory 17 18 14 Rate Blood Pressure 129/71 (mmHg) O2 Sat by Pulse 98 95 Oximetry 11/06/16 11/06/16 11/06/16 08:32 10:32 10:50 Temperature 98.3 F Pulse Rate 78 Respiratory 18 16 16 Rate Blood Pressure 116/64 (mmHg) O2 Sat by Pulse 97 Oximetry 11/06/16 13:16 Temperature Pulse Rate Respiratory 18 Rate Blood Pressure (mmHg) O2 Sat by Pulse Oximetry Oxygen Devices in Use Now: Nasal Cannula - 3L NC Appearance: Chronically ill appearing female, lying in bed, in NAD Eyes: PERRLA Ears/Nose/Mouth/Throat: Clear Oropharnyx, Mucous Membranes Moist Neck: NL Appearance and Movements; NL JVP Respiratory: Symmetrical Chest Expansion and Respiratory Effort, - - anteriorly - expiratory wheezing with prolonged expiratory phase Cardiovascular: NL Sounds; No Murmurs; No JVD, RRR Abdominal: NL Sounds; No Tenderness; No Distention Skin: - - ecchymotic areas scattered on torso and BUE and to BLE; chronic wounds to BLE and to feet Neurological: Alert and Oriented x 3 Lines/Tubes/Other Access: Clean, Dry and Intact Rojo, Clean, Dry and Intact Peripheral IV Nutrition: Taking PO's Result Diagrams: 11/06/16 06:13 11/06/16 05:56 Microbiology and Other Data: Microbiology 11/04/16 14:05 Influenza Types A,B Antigen (MARKUS) - Final Nasal Specimen received for Influenza A/B Molecular testing Assess/Plan/Problems-Billing Assessment: 56 yo female patient who has a PMH of end-stage COPD on home oxygen 3L, tobacco abuse, hx of newly diagnosed CHF with cardiomyopathy (thought to be possible Takosubo's), 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 She was discharged from [facility] about 1 week ago and reports she and her are unable to care for her in the home setting - Patient Problems (1) Chronic steroid use Code(s): VMV6762 - Comment: Patient on high dose steroids (Prednisone 60 mg) for several years. Per notes from [facility], patient has failed attempts to wean dose. Most likely cause of patient's skin issues, as well as muscle atrophy and osteoporosis. Discussed with patient slightly decreasing her steroid dose in order to prevent worsening of chronic conditions. Weaning of prednisone will need to be continued in outpatient setting with patient's PCP or lead android developer. (2) Acute on chronic respiratory failure with hypercapnia Code(s): J96.22 - ACUTE AND CHRONIC RESPIRATORY FAILURE WITH HYPERCAPNIA Comment: - Possible exacerbation on admission, now appears to be at baseline, on 3L oxygen. - Continue home inhalers. (3) Cachexia Code(s): R64 - CACHEXIA Comment: - She has apparent muscle wasting and is very thin weighing 91lbs, demonstrating moderate to severe malnutrition. - Protein is 5.5, Albumin 3.1. - Suspect secondary to end-stage COPD and malnutrition, possible metastatic process? Chronic steroid use and likely muscle atrophy is also contributing. - Pt states she does not want a work-up for cancer now, due to "too much going on." - Chest/Abd/Pelvis CTA showing no masses. - In reviewing the notes from [facility], the patient had refused PT evaluation so the decision was made to send the patient home with her , who accepted care of the patient. She is now requiring too much care to be taken care of safely at home. - PT/OT, nutrition evaluations - Diet changed to regular diet in order to expand food options, given her poor nutrional status. (4) Dysphagia Code(s): R13.10 - DYSPHAGIA, UNSPECIFIED Comment: - Pt denies compliants today. - Speech pathology swallow eval WNL. (5) Cardiomyopathy Code(s): I42.9 - CARDIOMYOPATHY, UNSPECIFIED Comment: - Cardiology consult in [facility] last week for CHF, CP and new cardiomyopathy with LVEF 20%, thought to be Takotsubo cardiomyopathy. - TTE 11/05 showing EF 40-45%, no significant valvular disease, trace MR and TR, LVH - Continue SILVANA-I, BB. - Hold furosemide, pt appears dry. - Daily weights (6) Diabetes Code(s): E11.9 - TYPE 2 DIABETES MELLITUS WITHOUT COMPLICATIONS Comment: - Steroid induced DM? - Continue FSBG with Lispro SSI and Lantus at decreased dose. - Will slowly titrate Lantus up in order to prevent any further hypoglycemic episodes. (7) Chronic pain Code(s): G89.29 - OTHER CHRONIC PAIN Comment: - Continue methadone. Recently started by Palliative physican in [facility]. (8) Depression with anxiety Comment: - Continue sertraline and alprazolam. - Recent psych consult in [facility], please see detailed note in chart. (9) DVT prophylaxis Code(s): CKR0853 - Comment: SQ heparin (10) DNR (do not resuscitate) Comment: DNR/DNI MOLST on chart Status and Disposition: Inpatient with acute on chronic respiratory failure. CM/SW following. Plan for subacute rehab.
[2016-11-06 17:30] LABS: Urine Bacteria 1+ (Absent); Urine Bilirubin Negative (Negative); Urine Glucose 3+(>=500 mg/dL) (Negative); Urine Nitrite Positive (Negative)
[2016-11-06] MEDS: cefTRIAXone VIAL(*) 1,000 MG in NS 0.9% 50 ML* 50 ML IVPB SCH (20:00)
[2016-11-06] MEDS: ALPRAZolam TAB* 0.25 MG PO SCH (20:52)
[2016-11-06] MEDS: Insulin GLARGINE(*) 1 UNITS UNIT SUBCUT SCH (20:54)
[2016-11-07] MEDS: predniSONE TAB* 20 MG PO SCH ×3 (05:09→18:04)
[2016-11-07] MEDS: Heparin VIAL(*) 5000 UNITS/ML VIAL (FIVE THOUSAND) SUBCUT SCH ×3 (05:10→20:56)
[2016-11-07] MEDS: Insulin LISPRO* 1 UNITS UNIT SUBCUT SCH ×3 (07:34→16:54)
[2016-11-07] MEDS: Mometasone/Formoter 200/5 MDI INH SCH ×2 (07:58→21:00)
[2016-11-07] MEDS: Omeprazole CAP* 20 MG PO SCH (08:28)
[2016-11-07] MEDS: Folic Acid TAB* 1 MG PO SCH (08:28)
[2016-11-07] MEDS: Potassium Chlor TAB* 20 MEQ TAB.ER PO SCH (08:28)
[2016-11-07] MEDS: Lisinopril TAB* 5 MG PO SCH (08:30)
[2016-11-07] MEDS: Multivitamins/Minerals TAB PO SCH (08:30)
[2016-11-07] MEDS: Thiamine TAB* 100 MG TAB PO SCH (08:30)
[2016-11-07] MEDS: Methadone TAB* 5 MG PO SCH ×2 (08:30→20:48)
[2016-11-07] MEDS: Metoprolol Tartrate TAB* 25 MG PO SCH ×2 (08:31→20:48)
[2016-11-07] MEDS: Sertraline* 25 MG TAB PO SCH (08:31)
[2016-11-07] MEDS ORDERED: Levalbuterol 1.25MG/0.5ML NEB INH PRN (11:59)
--- NOTE | 2016-11-07 12:04 | PN ---
Subjective Date of Service: 11/07/16 Interval History: 11:05-1150am: Patient seen and examined at bedside. Patient initially was exasperated, stating, "You do realize it's in the middle of the afternoon for me. Everyone keeps interrupting me, and I need to sleep." I told the patient that it was 11am, and she stated, "That's afternoon for me." I attempted to clarify our POC for the weekend, as the initial palliative care consult, as well as the CM/SW notes state that the patient has requested rehab first to see if she can get stronger to return home prior to deciding on hospice. Yesterday, the patient stated that she was looking to sign on with hospice and rehab. Both CM and SW attempted to clarify this for the patient (per discussion and per the notes). Today, I tried to clarify the patient's director long term care goals. She continues to state, "We will figure this out on Wednesday." I attempted to clarify the choices the patient is referring to. Admittedly, it is difficult to discuss this with the patient, as she is easily agitated and often speaks over me. However, she stops and recognizes that she is anxious and upset and frequently states, "I'm having a hard time with all of this, I'm so tired." Through multiple attempts, I was able to get the patient to state that 1) she is concerned about going to [facility] for Rehab because she already spoke with CM/ SW and feels she cannot afford the out of pocket costs; 2) she feels that there may be a previously expressed option that allows her to sign on with hospice and get the home equipment she needs and potentially rehab (though I explained that this does not seem consistent with the hospice purpose). I asked her specifically what she would choose if she had to choose between hospice and rehab, and she states, "I can't answer that right now. Not until the meeting on Wednesday with my and palliative care and CM/SW. I need to know all of my options." We agreed to continue our current POC of PT and wound care until this could be discussed with the previously aforementioned parties. In terms of prednisone tapering, the patient was very defensive and angry about tapering the medication. I explained that now would not be a good time, as we have recently found she has a UTI; however, she was very angry that I wanted to try to see how she would respond to a small reduction in prednisone (we discussed 5-10 mg reduction) while in a controlled hospital setting. Each time I tried to explain my rationale, she interrupted me and yelled, "Not today. Why can't you wait until Wednesday?" When I expressed my concern that waiting until she was discharged to attempt this was not ideal (given my inability to follow- up with her), she said, "I don't trust you. Leave it alone." I discussed the conversations held with her PCP and what was noted in the progress notes from [facility] - the patient states, "Only Dr. Stoner manages my steroids and blood sugars. You have no right to touch my medications." The patient continued to be defensive. I asked her to tell me what she knows about her steroids. She was able to tell me that she had "one bad doctor" who was negligent and started this "whole process." Since then, she has deteriorated and states that she has watched her skin get bad, her muscles waste away, her strength go, and her lungs get worse. She verbally recognized that she realizes her steroid dosing is too high; however, she feels she lacks the coping skills and has too much going on to have us start to change her medications here. She states, "I know I' m going to . I just want to make it to Wednesday and figure out what we are going to do. It's too late to start worrying about this now." The patient did apologize at one point, stating "I know I'm being angry and I know you care. I just need everything to stay the same until I can figure this out with my ." She cited worries about losing her house, their finances (which have been compromised by multiple hospitalizations), her 's health. She states she is angry with [facility] for leaving her sit in feces for 2 hours, which she thinks led to her UTI, as well as other instances that have worsened her health status. At times, she is visibly tearful. After the patient provided this explanation, I reiterated that I did not plan to do this now, as her body already has increased stress from her infection. I also sat and let her talk about her feelings regarding her and her anger over her medical situation. Afterwards, she gave me a hug and said, "thank you." She asked to sleep and I agreed to make alprazolam available PRN during the day to help manage anxiety. She is very pleased with the caring people here and has no other complaints. The patient denied dizziness, CP, SOB, abd pain, n/v. Her only complaint at this time is anxiety and fatigue. Family History: Unchanged from Admission Social History: Unchanged from Admission Past Medical History: Unchanged from Admission Objective Active Medications: Acetaminophen (Tylenol Tab*) 650 mg PO Q4H PRN PRN Reason: FEVER/PAIN Acetaminophen/Hydrocodone Bitart ([place] 5-325 Tab*) 1 tab PO Q4H PRN PRN Reason: PAIN Last Admin: 11/06/16 18:03 Dose: 0.5 tab Albuterol (Ventolin 2.5 Mg/3 Ml Neb.Myra*) 2.5 mg INH Q2H PRN PRN Reason: SOB/WHEEZING Albuterol/Ipratropium (Duoneb Neb.Myra*) 1 neb INH Q4H PRN PRN Reason: SOB/WHEEZING Alprazolam (Xanax Tab*) 0.125 mg PO BEDTIME [facility] Last Admin: 11/06/16 20:52 Dose: 0.125 mg Alprazolam (Xanax Tab*) 0.125 mg PO Q8H PRN PRN Reason: ANXIETY Dextrose (D50w Syringe 50 Ml*) 12.5 gm IV PUSH .FOR FS < 60 - SS PRN PRN Reason: FS < 60 Folic Acid (Folvite Tab*) 1 mg PO DAILY [facility] Last Admin: 11/07/16 08:28 Dose: 1 mg Heparin Sodium (Porcine) (Heparin Vial(*)) 5,000 units SUBCUT Q8HR [facility] Last Admin: 11/07/16 05:10 Dose: 5,000 units Ceftriaxone Sodium 1,000 mg/ (Sodium Chloride) 50 mls @ 200 mls/hr IVPB Q24H [facility] Last Admin: 11/06/16 20:00 Dose: 200 mls/hr Insulin Glargine (Lantus(*)) 10 units SUBCUT Q24H [facility] Last Admin: 11/06/16 20:54 Dose: 10 units Insulin Human Lispro (Humalog*) 0 units SUBCUT AC [facility] PRN Reason: Protocol Last Admin: 11/07/16 07:34 Dose: Not Given Levalbuterol HCl (Xopenex 1.25 Mg/0.5 Ml Neb.Myra*) 1.25 mg INH Q2H PRN PRN Reason: SOB/WHEEZING Lisinopril (Prinivil Tab*) 2.5 mg PO DAILY [facility] Last Admin: 11/07/16 08:30 Dose: 2.5 mg Methadone HCl (Dolophine Tab*) 5 mg PO BID [facility] Last Admin: 11/07/16 08:30 Dose: 5 mg Metoprolol Tartrate (Lopressor Tab*) 25 mg PO BID [facility] Last Admin: 11/07/16 08:31 Dose: 25 mg Mometasone Furoate/Formoterol Fumar (Dulera 200/5 Mdi*) 2 puff INH BID [facility] Last Admin: 11/07/16 07:58 Dose: 2 puff Multivitamins/Minerals (Theragran/Minerals Tab*) 1 tab PO DAILY [facility] Last Admin: 11/07/16 08:30 Dose: 1 tab Omeprazole (Prilosec Cap*) 20 mg PO DAILY@0730 [facility] Last Admin: 11/07/16 08:28 Dose: 20 mg Ondansetron HCl (Zofran Inj*) 4 mg IV Q6H PRN PRN Reason: NAUSEA Last Admin: 11/06/16 21:09 Dose: 4 mg Potassium Chloride (Klor Con Er Tab*) 20 meq PO DAILY [facility] Last Admin: 11/07/16 08:28 Dose: 20 meq Prednisone (Deltasone Tab*) 20 mg PO 0600,1400,1800 [facility] Senna (Senokot Tab*) 2 tab PO DAILY PRN PRN Reason: CONSTIPATION Sertraline HCl (Zoloft*) 12.5 mg PO QAM [facility] Last Admin: 11/07/16 08:31 Dose: 12.5 mg Thiamine HCl (Vitamin B-1 Tab*) 100 mg PO DAILY [facility] Last Admin: 11/07/16 08:30 Dose: 100 mg Vital Signs 11/06/16 11/06/16 11/06/16 13:16 15:16 15:22 Temperature 98.3 F Pulse Rate 97 Respiratory 18 18 16 Rate Blood Pressure 126/61 (mmHg) O2 Sat by Pulse 96 Oximetry 11/06/16 11/06/16 11/06/16 15:55 16:41 18:03 Temperature 97.8 F Pulse Rate Respiratory 18 16 Rate Blood Pressure 122/81 (mmHg) O2 Sat by Pulse 98 96 Oximetry 11/06/16 11/06/16 11/06/16 20:00 20:03 20:52 Temperature Pulse Rate Respiratory 16 16 16 Rate Blood Pressure (mmHg) O2 Sat by Pulse Oximetry 11/06/16 11/06/16 11/06/16 20:53 21:05 22:52 Temperature Pulse Rate Respiratory 16 20 Rate Blood Pressure (mmHg) O2 Sat by Pulse 97 Oximetry 11/06/16 11/06/16 11/07/16 22:53 23:19 07:19 Temperature 98.6 F 97.8 F Pulse Rate 97 98 Respiratory 20 16 17 Rate Blood Pressure 118/38 120/60 (mmHg) O2 Sat by Pulse 100 89 Oximetry 11/07/16 11/07/16 08:30 10:30 Temperature Pulse Rate Respiratory 18 20 Rate Blood Pressure (mmHg) O2 Sat by Pulse Oximetry Oxygen Devices in Use Now: Nasal Cannula - 3L NC Appearance: Chronically ill appearing female, lying in bed, visibly agitated initially, but calmed over time. Eyes: PERRLA Ears/Nose/Mouth/Throat: Clear Oropharnyx, Mucous Membranes Moist Neck: NL Appearance and Movements; NL JVP Respiratory: Symmetrical Chest Expansion and Respiratory Effort, - - expiratory wheezing with prolonged expiratory phase - anteriorly Cardiovascular: NL Sounds; No Murmurs; No JVD, RRR Abdominal: NL Sounds; No Tenderness; No Distention Extremities: - - BLE chronic ulcerations and skin changes Skin: - Neurological: Alert and Oriented x 3 Lines/Tubes/Other Access: Clean, Dry and Intact Jones, Clean, Dry and Intact Peripheral IV Nutrition: Taking PO's Result Diagrams: 11/06/16 06:13 11/06/16 05:56 Microbiology and Other Data: Microbiology 11/04/16 14:05 Influenza Types A,B Antigen (MARKUS) - Final Nasal Specimen received for Influenza A/B Molecular testing Assess/Plan/Problems-Billing Assessment: 56 yo female patient who has a PMH of 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 She was discharged from [place] about 1 week ago and reports she and her are unable to care for her in the home setting - Patient Problems (1) Chronic steroid use Code(s): CUX0465 - Comment: Patient on high dose steroids (Prednisone 60 mg) for several years. Per notes from [place], patient has failed attempts to wean dose. Most likely cause of patient's skin issues, as well as muscle atrophy and osteoporosis. Patient found to have UTI yesterday after concern expressed for foul smelling urine and irritation. Will hold off on prednisone taper, given acute infection. (2) UTI (urinary tract infection) Comment: Continue ceftriaxone IV, awaiting urine culture/sensitivities. Patient now denies bladder spasms or dysuria. Jones catheter in place due to patient's pain and inability to make it to [facility] ( also has concern for compromised skin integrity). At this time, will keep jones catheter in place and will attempt to remove XENIA. (3) Acute on chronic respiratory failure with hypercapnia Code(s): J96.22 - ACUTE AND CHRONIC RESPIRATORY FAILURE WITH HYPERCAPNIA Comment: - Possible exacerbation on admission, now appears to be at baseline, on 3L oxygen. - Continue home inhalers. (4) Cachexia Code(s): R64 - CACHEXIA Comment: - She has apparent muscle wasting and is very thin weighing 91lbs, demonstrating moderate to severe malnutrition. - Protein is 5.5, Albumin 3.1. - Suspect secondary to end-stage COPD and malnutrition, possible metastatic process? Chronic steroid use and likely muscle atrophy is also contributing. - Pt states she does not want a work-up for cancer now, due to "too much going on." - Chest/Abd/Pelvis CTA showing no masses. - In reviewing the notes from [place], the patient had refused PT evaluation so the decision was made to send the patient home with her , who accepted care of the patient. She is now requiring too much care to be taken care of safely at home. - PT/OT, nutrition evaluations - Diet changed to regular diet in order to expand food options, given her poor nutrional status. (5) Dysphagia Code(s): R13.10 - DYSPHAGIA, UNSPECIFIED Comment: - Pt denies complaints today. - Speech pathology swallow eval WNL. (6) Cardiomyopathy Code(s): I42.9 - CARDIOMYOPATHY, UNSPECIFIED Comment: - Cardiology consult in [facility] last week for CHF, CP and new cardiomyopathy with LVEF 20%, thought to be Takotsubo cardiomyopathy. - TTE 11/05 showing EF 40-45%, no significant valvular disease, trace MR and TR, LVH - Continue SILVANA-I, BB. - Hold furosemide, pt appears dry. - Daily weights (7) Diabetes Code(s): E11.9 - TYPE 2 DIABETES MELLITUS WITHOUT COMPLICATIONS Comment: - Steroid induced DM? - Continue FSBG with Lispro SSI and Lantus at decreased dose. - Lispro SSI dose increased for better prandial coverage. (8) Chronic pain Code(s): G89.29 - OTHER CHRONIC PAIN Comment: - Continue methadone. Recently started by Palliative physican in [place]. (9) Depression with anxiety Comment: - Though the patient is emotionally labile and often confrontational, she is able to appropriately manage facts and information. She demonstrates an understanding of her disease process as well as expressed concerns from myself and from nursing. - Continue sertraline and alprazolam. - Recent psych consult in [place], please see detailed note in chart. (10) DVT prophylaxis Code(s): QVI8026 - Comment: SQ heparin (11) DNR (do not resuscitate) Comment: DNR/DNI MOLST on chart Status and Disposition: Inpatient with acute on chronic respiratory failure. CM/SW following. Plan for subacute rehab.
[2016-11-07] MEDS: ALPRAZolam TAB* 0.25 MG PO PRN (12:17)
[2016-11-07] MEDS ORDERED: predniSONE TAB* 20 MG PO SCH (14:00)
[2016-11-07] MEDS: Ondansetron INJ* 2 MG/ML VIAL IV PRN ×2 (14:28→20:38)
[2016-11-07] MEDS ORDERED: predniSONE TAB* 10 MG PO SCH (18:00)
[2016-11-07] MEDS: cefTRIAXone VIAL(*) 1,000 MG in NS 0.9% 50 ML* 50 ML IVPB SCH (20:44)
[2016-11-07] MEDS: HYDROcodone/ACETAMIN 5-325 MG* 1 TAB PO PRN (20:49)
[2016-11-07] MEDS: Insulin GLARGINE(*) 1 UNITS UNIT SUBCUT SCH (20:50)
[2016-11-07] MEDS: ALPRAZolam TAB* 0.25 MG PO SCH (20:55)
[2016-11-08] MEDS: HYDROcodone/ACETAMIN 5-325 MG* 1 TAB PO PRN ×2 (04:49→18:32)
[2016-11-08] MEDS: ALPRAZolam TAB* 0.25 MG PO PRN ×2 (04:52→13:21)
[2016-11-08] MEDS: Senna TAB PO PRN (06:24)
[2016-11-08] MEDS: predniSONE TAB* 20 MG PO SCH ×3 (06:24→17:36)
[2016-11-08] MEDS: Heparin VIAL(*) 5000 UNITS/ML VIAL (FIVE THOUSAND) SUBCUT SCH ×3 (06:36→22:00)
[2016-11-08 06:58] LABS: Hematocrit 42 % (35-47); Mean Corpuscular HGB Conc 33 g/dl (31-36); Mean Corpuscular Hemoglobin 31 pg (27-31); Mean Corpuscular Volume 93 fL (80-97); Mean Platelet Volume 8 um3 (7.4-10.4); Red Blood Count 4.52 10^6/ul (4.0-5.4); Red Cell Distribution Width 14 % (10.5-15); White Blood Count 12.9 10^3/ul (3.5-10.8)
[2016-11-08 07:03] LABS: Comments Flag Yes
[2016-11-08 07:04] LABS: Add Diff/Slide Review? Slide Review Added
[2016-11-08 07:13] LABS: BUN/Creatinine Ratio 33.3 (8-20); EGFR African American 267.1 (>60); EGFR Non-African American 207.7 (>60); Potassium 4.6 mmol/L (3.5-5.0)
[2016-11-08] MEDS: Mometasone/Formoter 200/5 MDI INH SCH (07:41)
[2016-11-08] MEDS: Thiamine TAB* 100 MG TAB PO SCH (09:04)
[2016-11-08] MEDS: Metoprolol Tartrate TAB* 25 MG PO SCH ×2 (09:04→20:30)
[2016-11-08] MEDS: Multivitamins/Minerals TAB PO SCH (09:04)
[2016-11-08] MEDS: Omeprazole CAP* 20 MG PO SCH (09:04)
[2016-11-08] MEDS: Folic Acid TAB* 1 MG PO SCH (09:05)
[2016-11-08] MEDS: Lisinopril TAB* 5 MG PO SCH (09:05)
[2016-11-08] MEDS: Methadone TAB* 5 MG PO SCH ×2 (09:05→20:30)
[2016-11-08] MEDS: Sertraline* 25 MG TAB PO SCH (09:05)
[2016-11-08] MEDS: Insulin LISPRO* 1 UNITS UNIT SUBCUT SCH ×3 (09:12→17:36)
[2016-11-08] MEDS: Potassium Chlor TAB* 20 MEQ TAB.ER PO SCH (09:16)
--- NOTE | 2016-11-08 09:20 | PN ---
Subjective Date of Service: 11/08/16 Interval History: Patient seen and examined at bedside. She is more apologetic today and states, "I had time to think about our conversation, and I realize you were coming from a place of caring. So thank you." She admits to feeling overwhelmed and hopes to have everything written down tomorrow so she and her can come to a decision. She is worried that 5 days at [facility] will not be enough. She requested a sitz bath to help with comfort and pericare. The patient denies CASTANON, dizziness, CP, SOB, abd pain, n/v. Family History: Unchanged from Admission Social History: Unchanged from Admission Past Medical History: Unchanged from Admission Objective Active Medications: Acetaminophen (Tylenol Tab*) 650 mg PO Q4H PRN PRN Reason: FEVER/PAIN Acetaminophen/Hydrocodone Bitart ([place] 5-325 Tab*) 1 tab PO Q4H PRN PRN Reason: PAIN Last Admin: 11/08/16 04:49 Dose: 1 tab Albuterol (Ventolin 2.5 Mg/3 Ml Neb.Myra*) 2.5 mg INH Q2H PRN PRN Reason: SOB/WHEEZING Albuterol/Ipratropium (Duoneb Neb.Myra*) 1 neb INH Q4H PRN PRN Reason: SOB/WHEEZING Alprazolam (Xanax Tab*) 0.125 mg PO BEDTIME [facility] Last Admin: 11/07/16 20:55 Dose: 0.125 mg Alprazolam (Xanax Tab*) 0.125 mg PO Q8H PRN PRN Reason: ANXIETY Last Admin: 11/08/16 04:52 Dose: 0.125 mg Dextrose (D50w Syringe 50 Ml*) 12.5 gm IV PUSH .FOR FS < 60 - SS PRN PRN Reason: FS < 60 Folic Acid (Folvite Tab*) 1 mg PO DAILY [facility] Last Admin: 11/08/16 09:05 Dose: 1 mg Heparin Sodium (Porcine) (Heparin Vial(*)) 5,000 units SUBCUT Q8HR [facility] Last Admin: 11/08/16 06:36 Dose: 5,000 units Ceftriaxone Sodium 1,000 mg/ (Sodium Chloride) 50 mls @ 200 mls/hr IVPB Q24H [facility] Last Admin: 11/07/16 20:44 Dose: 200 mls/hr Insulin Glargine (Lantus(*)) 10 units SUBCUT Q24H [facility] Last Admin: 11/07/16 20:50 Dose: 10 units Insulin Human Lispro (Humalog*) 0 units SUBCUT AC [facility] PRN Reason: Protocol Last Admin: 11/08/16 09:12 Dose: 1 units Levalbuterol HCl (Xopenex 1.25 Mg/0.5 Ml Neb.Myra*) 1.25 mg INH Q2H PRN PRN Reason: SOB/WHEEZING Lisinopril (Prinivil Tab*) 2.5 mg PO DAILY [facility] Last Admin: 11/08/16 09:05 Dose: 2.5 mg Methadone HCl (Dolophine Tab*) 5 mg PO BID [facility] Last Admin: 11/08/16 09:05 Dose: 5 mg Metoprolol Tartrate (Lopressor Tab*) 25 mg PO BID [facility] Last Admin: 11/08/16 09:04 Dose: 25 mg Mometasone Furoate/Formoterol Fumar (Dulera 100/5 Mdi*) 2 puff INH QAM [facility] Multivitamins/Minerals (Theragran/Minerals Tab*) 1 tab PO DAILY [facility] Last Admin: 11/08/16 09:04 Dose: 1 tab Omeprazole (Prilosec Cap*) 20 mg PO DAILY@0730 [facility] Last Admin: 11/08/16 09:04 Dose: 20 mg Ondansetron HCl (Zofran Inj*) 4 mg IV Q6H PRN PRN Reason: NAUSEA Last Admin: 11/07/16 20:38 Dose: 4 mg Potassium Chloride (Klor Con Er Tab*) 20 meq PO DAILY [facility] Last Admin: 11/08/16 09:16 Dose: 20 meq Prednisone (Deltasone Tab*) 20 mg PO 0600,1400,1800 [facility] Last Admin: 11/08/16 06:24 Dose: 20 mg Senna (Senokot Tab*) 2 tab PO DAILY PRN PRN Reason: CONSTIPATION Last Admin: 11/08/16 06:24 Dose: 1 tab Sertraline HCl (Zoloft*) 12.5 mg PO QAM [facility] Last Admin: 11/08/16 09:05 Dose: 12.5 mg Thiamine HCl (Vitamin B-1 Tab*) 100 mg PO DAILY [facility] Last Admin: 11/08/16 09:04 Dose: 100 mg Vital Signs 11/07/16 11/07/16 11/07/16 10:30 12:17 14:17 Temperature Pulse Rate Respiratory 20 20 19 Rate Blood Pressure (mmHg) O2 Sat by Pulse Oximetry 11/07/16 11/07/16 11/07/16 15:23 16:17 20:00 Temperature 97.9 F Pulse Rate 108 Respiratory 16 18 16 Rate Blood Pressure 128/72 (mmHg) O2 Sat by Pulse 100 Oximetry 11/07/16 11/07/16 11/07/16 20:48 20:49 20:55 Temperature Pulse Rate Respiratory 16 16 16 Rate Blood Pressure (mmHg) O2 Sat by Pulse Oximetry 11/07/16 11/07/16 11/07/16 22:47 22:48 22:49 Temperature 98.4 F Pulse Rate 107 Respiratory 16 16 16 Rate Blood Pressure 118/57 (mmHg) O2 Sat by Pulse 99 Oximetry 11/07/16 11/08/16 11/08/16 22:55 01:57 04:49 Temperature Pulse Rate 87 Respiratory 16 16 16 Rate Blood Pressure (mmHg) O2 Sat by Pulse 98 Oximetry 11/08/16 11/08/16 11/08/16 04:52 06:49 07:25 Temperature 97.2 F Pulse Rate 101 Respiratory 16 18 Rate Blood Pressure 123/79 (mmHg) O2 Sat by Pulse 97 Oximetry 11/08/16 11/08/16 07:43 09:05 Temperature Pulse Rate 68 Respiratory 20 18 Rate Blood Pressure (mmHg) O2 Sat by Pulse 97 Oximetry Oxygen Devices in Use Now: Nasal Cannula - 3L NC Appearance: Chronically ill appearing female, sitting up in bed, in NAD Eyes: PERRLA Ears/Nose/Mouth/Throat: Clear Oropharnyx, Mucous Membranes Moist Neck: NL Appearance and Movements; NL JVP Respiratory: Symmetrical Chest Expansion and Respiratory Effort, - - prolonged expiratory phase with expiratory wheezing Cardiovascular: NL Sounds; No Murmurs; No JVD, RRR Abdominal: NL Sounds; No Tenderness; No Distention Extremities: No Edema - chronic venous changes to BLE, - Skin: - - scattered ecchymotic areas across torso, back and BUE, open areas to feet and ankles Neurological: Alert and Oriented x 3 Lines/Tubes/Other Access: Clean, Dry and Intact Jones, Clean, Dry and Intact Peripheral IV Nutrition: Taking PO's Result Diagrams: 11/08/16 06:34 11/08/16 06:34 Microbiology and Other Data: Microbiology 11/04/16 14:05 Influenza Types A,B Antigen (MARKUS) - Final Nasal Specimen received for Influenza A/B Molecular testing Assess/Plan/Problems-Billing Assessment: 56 yo female patient who has a PMH of 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 She was discharged from [place] about 1 week ago and reports she and her are unable to care for her in the home setting - Patient Problems (1) Chronic steroid use Code(s): YBV2175 - Comment: Patient on high dose steroids (Prednisone 60 mg) for several years. Per notes from [place], patient has failed attempts to wean dose. Most likely cause of patient's skin issues, as well as muscle atrophy and osteoporosis. Patient found to have UTI 11/06 after concern expressed for foul smelling urine and irritation. Will hold off on prednisone taper, given acute infection. (2) UTI (urinary tract infection) Comment: Continue ceftriaxone IV, awaiting urine culture/sensitivities. Patient now denies bladder spasms or dysuria. Jones catheter in place due to patient's pain and inability to make it to [facility] ( also has concern for compromised skin integrity). At this time, will keep jones catheter in place and will attempt to remove XENIA. (3) Acute on chronic respiratory failure with hypercapnia Code(s): J96.22 - ACUTE AND CHRONIC RESPIRATORY FAILURE WITH HYPERCAPNIA Comment: - Possible exacerbation on admission, now appears to be at baseline, on 3L oxygen. - Continue home inhalers. (4) Cachexia Code(s): R64 - CACHEXIA Comment: - She has apparent muscle wasting and is very thin weighing 91lbs, demonstrating moderate to severe malnutrition. - Protein is 5.5, Albumin 3.1. - Suspect secondary to end-stage COPD and malnutrition, possible metastatic process? Chronic steroid use and likely muscle atrophy is also contributing. - Pt states she does not want a work-up for cancer now, due to "too much going on." - Chest/Abd/Pelvis CTA showing no masses. - In reviewing the notes from [place], the patient had refused PT evaluation so the decision was made to send the patient home with her , who accepted care of the patient. She is now requiring too much care to be taken care of safely at home. - PT/OT, nutrition evaluations - Diet changed to regular diet in order to expand food options, given her poor nutrional status. (5) Dysphagia Code(s): R13.10 - DYSPHAGIA, UNSPECIFIED Comment: - Pt denies complaints today. - Speech pathology swallow eval WNL. (6) Cardiomyopathy Code(s): I42.9 - CARDIOMYOPATHY, UNSPECIFIED Comment: - Cardiology consult in [facility] last week for CHF, CP and new cardiomyopathy with LVEF 20%, thought to be Takotsubo cardiomyopathy. - TTE 11/05 showing EF 40-45%, no significant valvular disease, trace MR and TR, LVH - Continue SILVANA-I, BB. - Hold furosemide, pt appears dry. - Daily weights (7) Diabetes Code(s): E11.9 - TYPE 2 DIABETES MELLITUS WITHOUT COMPLICATIONS Comment: - Steroid induced DM? - Continue FSBG with Lispro SSI and Lantus at decreased dose. - Lispro SSI dose increased for better prandial coverage, given patient's changed diet, in order to accommodate patient's nutritional needs. (8) Chronic pain Code(s): G89.29 - OTHER CHRONIC PAIN Comment: - Continue methadone. Recently started by Palliative physican in [place]. (9) Depression with anxiety Comment: - Though the patient is emotionally labile and often confrontational, she is able to appropriately manage facts and information. She demonstrates an understanding of her disease process as well as expressed concerns from myself and from nursing. - Continue sertraline and alprazolam. - Recent psych consult in [place], please see detailed note in chart. (10) DVT prophylaxis Code(s): [id number] - Comment: SQ heparin (11) DNR (do not resuscitate) Comment: DNR/DNI MOLST on chart Status and Disposition: Inpatient with acute on chronic respiratory failure. CM/SW following. Plan for subacute rehab.
[2016-11-08] MEDS: Mometasone/Formoter 100/5 MDI INH SCH (09:48)
[2016-11-08] MEDS: cefTRIAXone VIAL(*) 1,000 MG in NS 0.9% 50 ML* 50 ML IVPB SCH (19:33)
[2016-11-08] MEDS: Ondansetron INJ* 2 MG/ML VIAL IV PRN (20:21)
[2016-11-08] MEDS: ALPRAZolam TAB* 0.25 MG PO SCH (20:22)
[2016-11-08] MEDS: Insulin GLARGINE(*) 1 UNITS UNIT SUBCUT SCH (20:31)
[2016-11-09] MEDS: HYDROcodone/ACETAMIN 5-325 MG* 1 TAB PO PRN ×3 (00:14→17:24)
[2016-11-09] MEDS: Heparin VIAL(*) 5000 UNITS/ML VIAL (FIVE THOUSAND) SUBCUT SCH ×3 (06:14→21:15)
[2016-11-09] MEDS: predniSONE TAB* 20 MG PO SCH ×3 (06:14→17:23)
[2016-11-09] MEDS: Senna TAB PO PRN (06:17)
[2016-11-09] MEDS: Multivitamins/Minerals TAB PO SCH (08:59)
[2016-11-09] MEDS: Lisinopril TAB* 5 MG PO SCH (08:59)
[2016-11-09] MEDS: Thiamine TAB* 100 MG TAB PO SCH (08:59)
[2016-11-09] MEDS: Sertraline* 25 MG TAB PO SCH (09:00)
[2016-11-09] MEDS: Folic Acid TAB* 1 MG PO SCH (09:00)
[2016-11-09] MEDS: Potassium Chlor TAB* 20 MEQ TAB.ER PO SCH (09:00)
[2016-11-09] MEDS: Methadone TAB* 5 MG PO SCH ×2 (09:01→21:10)
[2016-11-09] MEDS: Metoprolol Tartrate TAB* 25 MG PO SCH ×2 (09:01→21:10)
[2016-11-09] MEDS: Omeprazole CAP* 20 MG PO SCH (09:01)
[2016-11-09] MEDS: Insulin LISPRO* 1 UNITS UNIT SUBCUT SCH ×3 (09:02→17:27)
[2016-11-09] MEDS: Ondansetron INJ* 2 MG/ML VIAL IV PRN ×2 (09:16→21:11)
[2016-11-09] MEDS: Mometasone/Formoter 100/5 MDI INH SCH (10:17)
[2016-11-09] MEDS: ALPRAZolam TAB* 0.25 MG PO PRN (10:50)
--- NOTE | 2016-11-09 12:56 | PN ---
Subjective Date of Service: 11/09/16 Interval History: Patient seen and examined at bedside. She is very tearful and labile this morning, stating, "I'm so afraid, and I just want to go home." She expressed concern over her not being able to come today and complained that she has trouble sleeping because she's so anxious. The patient does not answer my direct questions of whether or not she is having pain or new complaints but does state, "I must be getting the flu; I'm always hot and cold but I have no fever." She requested to be left alone so she can have time to rest. She also complains of constipation but refused offer of bowel meds to help her pass her stool. Family History: Unchanged from Admission Social History: Unchanged from Admission Past Medical History: Unchanged from Admission Objective Active Medications: Acetaminophen (Tylenol Tab*) 650 mg PO Q4H PRN PRN Reason: FEVER/PAIN Acetaminophen/Hydrocodone Bitart ([place] 5-325 Tab*) 1 tab PO Q4H PRN PRN Reason: PAIN Last Admin: 11/09/16 12:38 Dose: 0.5 tab Albuterol (Ventolin 2.5 Mg/3 Ml Neb.Myra*) 2.5 mg INH Q2H PRN PRN Reason: SOB/WHEEZING Albuterol/Ipratropium (Duoneb Neb.Myra*) 1 neb INH Q4H PRN PRN Reason: SOB/WHEEZING Alprazolam (Xanax Tab*) 0.125 mg PO BEDTIME [facility]AN[facility] Last Admin: 11/08/16 20:22 Dose: 0.125 mg Alprazolam (Xanax Tab*) 0.125 mg PO Q8H PRN PRN Reason: ANXIETY Last Admin: 11/09/16 10:50 Dose: 0.125 mg Cefuroxime Axetil (Ceftin Tab(*)) 250 mg PO BID [facility] Dextrose (D50w Syringe 50 Ml*) 12.5 gm IV PUSH .FOR FS < 60 - SS PRN PRN Reason: FS < 60 Folic Acid (Folvite Tab*) 1 mg PO DAILY [facility] Last Admin: 11/09/16 09:00 Dose: 1 mg Heparin Sodium (Porcine) (Heparin Vial(*)) 5,000 units SUBCUT Q8HR [facility] Last Admin: 11/09/16 06:14 Dose: 5,000 units Ceftriaxone Sodium 1,000 mg/ (Sodium Chloride) 50 mls @ 200 mls/hr IVPB Q24H [facility] Stop: 11/09/16 23:59 Last Admin: 11/08/16 19:33 Dose: 200 mls/hr Insulin Glargine (Lantus(*)) 10 units SUBCUT Q24H [facility] Last Admin: 11/08/16 20:31 Dose: 10 units Insulin Human Lispro (Humalog*) 0 units SUBCUT [facility] PRN Reason: Protocol Last Admin: 11/09/16 12:40 Dose: 2 units Levalbuterol HCl (Xopenex 1.25 Mg/0.5 Ml Neb.Myra*) 1.25 mg INH Q2H PRN PRN Reason: SOB/WHEEZING Lisinopril (Prinivil Tab*) 2.5 mg PO DAILY [facility] Last Admin: 11/09/16 08:59 Dose: 2.5 mg Methadone HCl (Dolophine Tab*) 5 mg PO BID [facility] Last Admin: 11/09/16 09:01 Dose: 5 mg Metoprolol Tartrate (Lopressor Tab*) 25 mg PO BID [facility] Last Admin: 11/09/16 09:01 Dose: 25 mg Mometasone Furoate/Formoterol Fumar (Dulera 100/5 Mdi*) 2 puff INH QAM [facility] Last Admin: 11/09/16 10:17 Dose: Not Given Multivitamins/Minerals (Theragran/Minerals Tab*) 1 tab PO DAILY [facility] Last Admin: 11/09/16 08:59 Dose: 1 tab Omeprazole (Prilosec Cap*) 20 mg PO DAILY@0730 [facility] Last Admin: 11/09/16 09:01 Dose: 20 mg Ondansetron HCl (Zofran Inj*) 4 mg IV Q6H PRN PRN Reason: NAUSEA Last Admin: 11/09/16 09:16 Dose: 4 mg Potassium Chloride (Klor Con Er Tab*) 20 meq PO DAILY [facility] Last Admin: 11/09/16 09:00 Dose: 20 meq Prednisone (Deltasone Tab*) 20 mg PO 0600,1400,1800 [facility] Last Admin: 11/09/16 06:14 Dose: 20 mg Senna (Senokot Tab*) 2 tab PO DAILY PRN PRN Reason: CONSTIPATION Last Admin: 11/09/16 06:17 Dose: 2 tab Sertraline HCl (Zoloft*) 12.5 mg PO QAM [facility] Last Admin: 11/09/16 09:00 Dose: 12.5 mg Thiamine HCl (Vitamin B-1 Tab*) 100 mg PO DAILY [facility] Last Admin: 11/09/16 08:59 Dose: 100 mg Vital Signs 11/08/16 11/08/16 11/08/16 13:21 15:04 15:21 Temperature 97.9 F Pulse Rate 79 Respiratory 18 20 18 Rate Blood Pressure 110/62 (mmHg) O2 Sat by Pulse 98 Oximetry 11/08/16 11/08/16 11/08/16 18:32 20:00 20:22 Temperature Pulse Rate Respiratory 20 20 20 Rate Blood Pressure (mmHg) O2 Sat by Pulse Oximetry 11/08/16 11/08/16 11/08/16 20:30 20:32 22:22 Temperature Pulse Rate Respiratory 20 20 20 Rate Blood Pressure (mmHg) O2 Sat by Pulse Oximetry 11/08/16 11/09/16 11/09/16 22:30 00:14 00:24 Temperature 98.0 F Pulse Rate 78 Respiratory 20 20 Rate Blood Pressure 118/54 (mmHg) O2 Sat by Pulse 99 Oximetry 11/09/16 11/09/16 11/09/16 07:57 09:00 09:01 Temperature 98.2 F Pulse Rate 127 Respiratory 16 16 16 Rate Blood Pressure 137/75 (mmHg) O2 Sat by Pulse 100 Oximetry 11/09/16 11/09/16 11/09/16 10:20 10:50 12:38 Temperature Pulse Rate 72 Respiratory 14 16 16 Rate Blood Pressure (mmHg) O2 Sat by Pulse 99 Oximetry Oxygen Devices in Use Now: Nasal Cannula - 3L NC Appearance: Chronically ill appearing female, agitated, alternating between yelling and tears Eyes: PERRLA Ears/Nose/Mouth/Throat: Clear Oropharnyx, Mucous Membranes Moist Neck: NL Appearance and Movements; NL JVP Respiratory: - - pt refused Cardiovascular: - - pt refused Skin: - - scattered ecchymosis to torso, BUE, BLE, BLE dressings to open wounds - c/d/i Neurological: Alert and Oriented x 3 - emotionally labile Lines/Tubes/Other Access: Clean, Dry and Intact Peripheral IV Nutrition: Taking PO's Result Diagrams: 11/08/16 06:34 11/08/16 06:34 Microbiology and Other Data: Microbiology 11/04/16 14:05 Influenza Types A,B Antigen (MARKUS) - Final Nasal Specimen received for Influenza A/B Molecular testing Assess/Plan/Problems-Billing Assessment: 56 yo female patient who has a PMH of 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 She was discharged from [place] about 1 week ago and reports she and her are unable to care for her in the home setting - Patient Problems (1) Chronic steroid use Code(s): MGU1857 - Comment: Patient on high dose steroids (Prednisone 60 mg) for several years. Per notes from [place], patient has failed attempts to wean dose. Most likely cause of patient's skin issues, as well as muscle atrophy and osteoporosis. Patient found to have UTI 11/06 after concern expressed for foul smelling urine and irritation. Will hold off on prednisone taper, given acute infection. (2) UTI (urinary tract infection) Comment: Continue ceftriaxone IV x 1 more day (due to c/o dysuria and spasms), switch to Ceftin tomorrow. Urine culture growing E. coli with sensitivity to cephalosporins. Jones catheter in place due to patient's pain and inability to make it to [facility] ( also has concern for compromised skin integrity). At this time, will keep jones catheter in place and will attempt to remove XENIA. Patient educated about infection and risk of colonized urinary catheter device. Patient refused to have jones at this time. (3) Acute on chronic respiratory failure with hypercapnia Code(s): J96.22 - ACUTE AND CHRONIC RESPIRATORY FAILURE WITH HYPERCAPNIA Comment: - Possible exacerbation on admission, now appears to be at baseline, on 3L oxygen. - Continue home inhalers. (4) Cachexia Code(s): R64 - CACHEXIA Comment: - She has apparent muscle wasting and is very thin weighing 91lbs, demonstrating moderate to severe malnutrition. - Protein is 5.5, Albumin 3.1. - Suspect secondary to end-stage COPD and malnutrition, possible metastatic process? Chronic steroid use and likely muscle atrophy is also contributing. - Pt states she does not want a work-up for cancer now, due to "too much going on." - Chest/Abd/Pelvis CTA showing no masses. - In reviewing the notes from [place], the patient had refused PT evaluation so the decision was made to send the patient home with her , who accepted care of the patient. She is now requiring too much care to be taken care of safely at home. - PT/OT, nutrition evaluations - Diet changed to regular diet in order to expand food options, given her poor nutrional status. (5) Dysphagia Code(s): R13.10 - DYSPHAGIA, UNSPECIFIED Comment: - Pt denies complaints today. - Speech pathology swallow eval WNL. (6) Cardiomyopathy Code(s): I42.9 - CARDIOMYOPATHY, UNSPECIFIED Comment: - Cardiology consult in [facility] last week for CHF, CP and new cardiomyopathy with LVEF 20%, thought to be Takotsubo cardiomyopathy. - TTE 11/05 showing EF 40-45%, no significant valvular disease, trace MR and TR, LVH - Continue SILVANA-I, BB. - Hold furosemide, pt appears dry. - Daily weights (7) Diabetes Code(s): E11.9 - TYPE 2 DIABETES MELLITUS WITHOUT COMPLICATIONS Comment: - Steroid induced DM? - Continue FSBG with Lispro SSI and Lantus at decreased dose. - Lispro SSI dose increased for better prandial coverage, given patient's changed diet, in order to accommodate patient's nutritional needs. (8) Chronic pain Code(s): G89.29 - OTHER CHRONIC PAIN Comment: - Continue methadone. Recently started by Palliative physican in [place]. (9) Depression with anxiety Comment: - Though the patient is emotionally labile and often confrontational, she is able to appropriately manage facts and information. She demonstrates an understanding of her disease process as well as expressed concerns from myself and from nursing. - Continue sertraline and alprazolam. - Recent psych consult in [place], please see detailed note in chart. (10) DVT prophylaxis Code(s): MIM1464 - Comment: SQ heparin (11) DNR (do not resuscitate) Comment: DNR/DNI MOLST on chart Status and Disposition: Inpatient with acute on chronic respiratory failure. CM/SW following. Plan for subacute rehab.
--- NOTE | 2016-11-09 16:10 | PN ---
Hospitalist Progress Note Family meeting held with patient, pt's spouse Scott, Dr. Wilson, Gricelda Phillips, and me regarding discharge plan. Discharge options discussed and patient was informed that she needed to make a decision by tomorrow regarding discharge; otherwise, she may become a long term admission. Patient was advised to work with PT/OT in the morning and if the recommendation was made for rehab (due to unsafe discharge plan) by PT, then the patient will be discharged to [facility] [place]. Patient is in agreement with this plan at this time. Awaiting PT session tomorrow to determine disposition.
--- NOTE | 2016-11-09 16:10 | PN ---
Progress Note - Progress Note Note: Met with patient, her Scott Gricelda and Susy also present to meet regarding discharge planning. Patient understands that discharge to home may not be a safe option. Plan is to have physical therapy tomorrow between 9-10 am to evaluate her and determine her safety. If she is not safe for discharge she is going to [facility] [place] rehab. If she is safe for discharge to home with will be discharged to home and enroll with hospice. Patient and understands a decision will be made either way regarding disposition tomorrow.
[2016-11-09] MEDS: cefTRIAXone VIAL(*) 1,000 MG in NS 0.9% 50 ML* 50 ML IVPB SCH (19:54)
[2016-11-09] MEDS: ALPRAZolam TAB* 0.25 MG PO SCH (21:09)
[2016-11-09] MEDS: Insulin GLARGINE(*) 1 UNITS UNIT SUBCUT SCH (21:12)
[2016-11-10] MEDS: Mometasone/Formoter 100/5 MDI INH SCH ×2 (05:58→07:19)
[2016-11-10] MEDS: Omeprazole CAP* 20 MG PO SCH (06:16)
[2016-11-10] MEDS: ALPRAZolam TAB* 0.25 MG PO PRN (06:17)
[2016-11-10] MEDS: Heparin VIAL(*) 5000 UNITS/ML VIAL (FIVE THOUSAND) SUBCUT SCH ×3 (06:18→21:22)
[2016-11-10] MEDS: predniSONE TAB* 20 MG PO SCH ×3 (06:18→17:26)
--- NOTE | 2016-11-10 08:10 | PN ---
Subjective Date of Service: 11/10/16 Interval History: Patient seen and examined at bedside. She has worked with PT this AM and is eager for discharge. She denies CASTANON, CP, SOB, abd pain, n/v. She refuses to have nursing remove jones and states, "We'll start fresh at [facility] and deal with it there." Family History: Unchanged from Admission Social History: Unchanged from Admission Past Medical History: Unchanged from Admission Objective Active Medications: Acetaminophen (Tylenol Tab*) 650 mg PO Q4H PRN PRN Reason: FEVER/PAIN Acetaminophen/Hydrocodone Bitart ([place] 5-325 Tab*) 1 tab PO Q4H PRN PRN Reason: PAIN Last Admin: 11/09/16 17:24 Dose: 0.5 tab Albuterol (Ventolin 2.5 Mg/3 Ml Neb.Myra*) 2.5 mg INH Q2H PRN PRN Reason: SOB/WHEEZING Albuterol/Ipratropium (Duoneb Neb.Myra*) 1 neb INH Q4H PRN PRN Reason: SOB/WHEEZING Alprazolam (Xanax Tab*) 0.125 mg PO BEDTIME [facility] Last Admin: 11/09/16 21:09 Dose: 0.125 mg Alprazolam (Xanax Tab*) 0.125 mg PO Q8H PRN PRN Reason: ANXIETY Last Admin: 11/10/16 06:17 Dose: 0.125 mg Cefuroxime Axetil (Ceftin Tab(*)) 250 mg PO BID [facility] Dextrose (D50w Syringe 50 Ml*) 12.5 gm IV PUSH .FOR FS < 60 - SS PRN PRN Reason: FS < 60 Folic Acid (Folvite Tab*) 1 mg PO DAILY [facility] Last Admin: 11/09/16 09:00 Dose: 1 mg Heparin Sodium (Porcine) (Heparin Vial(*)) 5,000 units SUBCUT Q8HR [facility] Last Admin: 11/10/16 06:18 Dose: 5,000 units Insulin Glargine (Lantus(*)) 10 units SUBCUT Q24H [facility] Last Admin: 11/09/16 21:12 Dose: 10 units Insulin Human Lispro (Humalog*) 0 units SUBCUT AC [facility] PRN Reason: Protocol Last Admin: 11/09/16 17:27 Dose: 2 units Levalbuterol HCl (Xopenex 1.25 Mg/0.5 Ml Neb.Myra*) 1.25 mg INH Q2H PRN PRN Reason: SOB/WHEEZING Lisinopril (Prinivil Tab*) 2.5 mg PO DAILY [facility] Last Admin: 11/09/16 08:59 Dose: 2.5 mg Methadone HCl (Dolophine Tab*) 5 mg PO BID [facility] Last Admin: 11/09/16 21:10 Dose: 5 mg Metoprolol Tartrate (Lopressor Tab*) 25 mg PO BID [facility] Last Admin: 11/09/16 21:10 Dose: 25 mg Mometasone Furoate/Formoterol Fumar (Dulera 100/5 Mdi*) 2 puff INH QAM [facility] Last Admin: 11/10/16 07:19 Dose: Not Given Multivitamins/Minerals (Theragran/Minerals Tab*) 1 tab PO DAILY [facility] Last Admin: 11/09/16 08:59 Dose: 1 tab Omeprazole (Prilosec Cap*) 20 mg PO DAILY@0730 [facility] Last Admin: 11/10/16 06:16 Dose: 20 mg Ondansetron HCl (Zofran Inj*) 4 mg IV Q6H PRN PRN Reason: NAUSEA Last Admin: 11/09/16 21:11 Dose: 4 mg Potassium Chloride (Klor Con Er Tab*) 20 meq PO DAILY [facility] Last Admin: 11/09/16 09:00 Dose: 20 meq Prednisone (Deltasone Tab*) 20 mg PO 0600,1400,1800 [facility] Last Admin: 11/10/16 06:18 Dose: 20 mg Senna (Senokot Tab*) 2 tab PO DAILY PRN PRN Reason: CONSTIPATION Last Admin: 11/09/16 06:17 Dose: 2 tab Sertraline HCl (Zoloft*) 12.5 mg PO QAM [facility] Last Admin: 11/09/16 09:00 Dose: 12.5 mg Thiamine HCl (Vitamin B-1 Tab*) 100 mg PO DAILY [facility] Last Admin: 11/09/16 08:59 Dose: 100 mg Vital Signs 11/09/16 11/09/16 11/09/16 09:00 09:01 10:20 Temperature Pulse Rate 72 Respiratory 16 16 14 Rate Blood Pressure (mmHg) O2 Sat by Pulse 99 Oximetry 11/09/16 11/09/16 11/09/16 10:50 11:01 12:38 Temperature Pulse Rate Respiratory 16 18 16 Rate Blood Pressure (mmHg) O2 Sat by Pulse Oximetry 11/09/16 11/09/16 11/09/16 12:50 14:38 16:28 Temperature 98.5 F Pulse Rate 122 Respiratory 16 16 20 Rate Blood Pressure 116/70 (mmHg) O2 Sat by Pulse 97 Oximetry 11/09/16 11/09/16 11/09/16 17:24 17:54 19:24 Temperature Pulse Rate Respiratory 18 18 Rate Blood Pressure (mmHg) O2 Sat by Pulse 96 Oximetry 11/09/16 11/09/16 11/09/16 21:09 21:10 23:09 Temperature Pulse Rate Respiratory 18 18 18 Rate Blood Pressure (mmHg) O2 Sat by Pulse Oximetry 11/09/16 11/10/16 11/10/16 23:10 01:13 01:53 Temperature 98.3 F Pulse Rate 116 Respiratory 18 18 20 Rate Blood Pressure 141/75 (mmHg) O2 Sat by Pulse 93 Oximetry 11/10/16 11/10/16 11/10/16 05:33 06:17 07:18 Temperature 98.0 F Pulse Rate 89 110 Respiratory 22 18 16 Rate Blood Pressure 140/76 (mmHg) O2 Sat by Pulse 96 100 Oximetry Oxygen Devices in Use Now: Nasal Cannula - 3L NC Appearance: Chronically ill appearing female, sitting up in bed, in NAD Eyes: PERRLA Ears/Nose/Mouth/Throat: Clear Oropharnyx, Mucous Membranes Moist Neck: NL Appearance and Movements; NL JVP Respiratory: Symmetrical Chest Expansion and Respiratory Effort, - - expiratory wheezing Cardiovascular: NL Sounds; No Murmurs; No JVD, RRR Abdominal: NL Sounds; No Tenderness; No Distention Extremities: No Edema Skin: - - chronic wounds to bilateral achillies and dorsum of feet, scattered ecchymosis Neurological: Alert and Oriented x 3 Lines/Tubes/Other Access: Clean, Dry and Intact Peripheral IV Nutrition: Taking PO's Result Diagrams: 11/08/16 06:34 11/08/16 06:34 Microbiology and Other Data: Microbiology 11/04/16 14:05 Influenza Types A,B Antigen (MARKUS) - Final Nasal Specimen received for Influenza A/B Molecular testing Assess/Plan/Problems-Billing Assessment: 56 yo female patient who has a PMH of end-stage COPD on home oxygen 3L, tobacco abuse, hx of newly diagnosed CHF with cardiomyopathy (thought to be possible Takosubo's), 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 She was discharged from [place] about 1 week ago and reports she and her are unable to care for her in the home setting - Patient Problems (1) Chronic steroid use Code(s): UPK2704 - Comment: Patient on high dose steroids (Prednisone 60 mg) for several years. Per notes from [place], patient has failed attempts to wean dose. Most likely cause of patient's skin issues, as well as muscle atrophy and osteoporosis. Patient found to have UTI 11/06 after concern expressed for foul smelling urine and irritation. Will hold off on prednisone taper, given acute infection. (2) UTI (urinary tract infection) Comment: Continue Ceftin for 7 days of treatment. Urine culture growing E. coli with sensitivity to cephalosporins. Jones catheter in place due to patient's pain and inability to make it to [facility] ( also has concern for compromised skin integrity). Pt refusing to have jones catheter removed prior to discharge. Recommend d/c at [facility], patient states she agrees to have it removed there. (3) Acute on chronic respiratory failure with hypercapnia Code(s): J96.22 - ACUTE AND CHRONIC RESPIRATORY FAILURE WITH HYPERCAPNIA Comment: - Possible exacerbation on admission, now appears to be at baseline, on 3L oxygen. - Continue home inhalers. (4) Cachexia Code(s): R64 - CACHEXIA Comment: - She has apparent muscle wasting and is very thin, weighing 95 lbs, demonstrating moderate to severe malnutrition. - Protein is 5.5, Albumin 3.1. - Suspect secondary to end-stage COPD and malnutrition, possible metastatic process? Chronic steroid use and likely muscle atrophy is also contributing. - Pt states she does not want a work-up for cancer now, due to "too much going on." - Chest/Abd/Pelvis CTA showing no masses. - In reviewing the notes from [place], the patient had refused PT evaluation so the decision was made to send the patient home with her , who accepted care of the patient. She is now requiring too much care to be taken care of safely at home. - PT/OT, nutrition evaluations - Diet changed to regular diet in order to expand food options, given her poor nutrional status. (5) Dysphagia Code(s): R13.10 - DYSPHAGIA, UNSPECIFIED Comment: - Speech pathology swallow eval WNL. (6) Cardiomyopathy Code(s): I42.9 - CARDIOMYOPATHY, UNSPECIFIED Comment: - Cardiology consult in [facility] last week for CHF, CP and new cardiomyopathy with LVEF 20%, thought to be Takotsubo cardiomyopathy. - TTE 11/05 showing EF 40-45%, no significant valvular disease, trace MR and TR, LVH - Continue SILVANA-I, BB, furosemide prn - Daily weights (7) Diabetes Code(s): E11.9 - TYPE 2 DIABETES MELLITUS WITHOUT COMPLICATIONS Comment: - Fairly well controlled - patient choosing cookies and candy for snacks, resulting in some elevated BG. Education provided. Lispro SSI adjusted for better prandial coverage. - Steroid induced DM? - Continue FSBG with Lispro SSI and Lantus at decreased dose. (8) Chronic pain Code(s): G89.29 - OTHER CHRONIC PAIN Comment: - Continue methadone. Recently started by Palliative physican in [place]. (9) Depression with anxiety Comment: - Though the patient is emotionally labile and often confrontational, she is able to appropriately manage facts and information. She demonstrates an understanding of her disease process as well as expressed concerns from myself and from nursing. - Continue sertraline and alprazolam. - Recent psych consult in [place], please see detailed note in chart. (10) DVT prophylaxis Code(s): TCF8466 - Comment: SQ heparin (11) DNR (do not resuscitate) Comment: DNR/DNI MOLST on chart Status and Disposition: Inpatient with acute on chronic respiratory failure. CM/SW following. Plan for subacute rehab.
[2016-11-10] MEDS: Insulin LISPRO* 1 UNITS UNIT SUBCUT SCH ×3 (08:15→17:26)
[2016-11-10] MEDS: Multivitamins/Minerals TAB PO SCH (09:10)
[2016-11-10] MEDS: Thiamine TAB* 100 MG TAB PO SCH (09:10)
[2016-11-10] MEDS: ceFUROXime TAB(*) 250 MG PO SCH ×2 (09:10→21:17)
[2016-11-10] MEDS: Lisinopril TAB* 5 MG PO SCH (09:10)
[2016-11-10] MEDS: Folic Acid TAB* 1 MG PO SCH (09:11)
[2016-11-10] MEDS: Metoprolol Tartrate TAB* 25 MG PO SCH ×2 (09:11→21:17)
[2016-11-10] MEDS: Methadone TAB* 5 MG PO SCH ×2 (09:11→21:16)
[2016-11-10] MEDS: Sertraline* 25 MG TAB PO SCH (09:12)
[2016-11-10] MEDS: Potassium Chlor TAB* 20 MEQ TAB.ER PO SCH (09:12)
--- NOTE | 2016-11-10 10:58 | TRS ---
MEDICINE TRANSFER SUMMARY: DATE OF ADMISSION: 11/04/16 DATE OF TRANSFER: 11/11/16 PROVIDER: Keke Gaxiola NP ATTENDING PHYSICIAN: Dr. Aby Carmen * (dictated by Keke Gaxiola NP) CONSULTING PHYSICIAN: Dr. Lore Wilson. PRIMARY DISCHARGE DIAGNOSES: 1. Acute on chronic respiratory failure with hypercapnia. 2. Urinary tract infection. 3. Cachexia. SECONDARY DISCHARGE DIAGNOSES: 1. Severe chronic obstructive pulmonary disease, on chronic prednisone and chronic oxygen. 2. Chronic pain. 3. Depression. 4. Anxiety. 5. History of congestive heart failure. 6. Diabetes. 7. Hypertension. 8. History of pulmonary embolism. 9. Adrenal insufficiency. MEDICATIONS AT DISCHARGE: 1. Prednisone 60 mg t.i.d. 2. Methadone 5 mg b.i.d. 3. Sertraline 12.5 mg q.a.m. 4. Senna 2 tabs daily p.r.n. 5. Adenosylmethionine 200 mg daily. 6. Potassium chloride 20 mEq daily. 7. Pantoprazole 40 mg daily. 8. Metoprolol tartrate 25 mg b.i.d. 9. Lisinopril 2.5 mg daily. 10. Furosemide 20 mg daily. 11. Vitamin D2 800 units daily. 12. Xanax 0.125 mg at bedtime and q.8 hours p.r.n. 13. Albuterol sulfate 1 puff inhaled q.4 to 6 hours p.r.n. New medications at discharge: 1. Ceftin 250 mg b.i.d. x3 more days. 2. Thiamine 100 mg daily. 3. Multivitamin 1 tab daily. 4. Folic acid 1 mg daily. 5. Dulera 2 puffs inhaled q.a.m. 6. Insulin glargine 10 units subcu q.24 hours in the evening at bedtime. 7. Lost Creek 5/325 one tab q.4 to 6 hours p.r.n 8. Lispro SSI at meal times DIAGNOSTIC TESTING: Done during this admission; CTA of the chest, abdomen, and pelvis. IMPRESSION: 1. Diffuse subcutaneous edema compatible with mild anasarca. 2. Emphysema. 3. Suboptimal examination evaluating for pulmonary emboli. 4. Retained stool with colonic redundancy. 5. Uterine fibroids. 6. Transthoracic echocardiogram. CONCLUSIONS: Mild concentric left ventricular hypertrophy is observed. There is global hypokinesis of the left ventricle with minor regional variation. The upper interventricular septum appears more hypokinetic than the low posterolateral wall. There is mild to moderately diffuse left ventricular systolic function. The estimated ejection fraction is 40% to 45%. No significant valvular disease: There is a trace mitral regurgitation. There is a trace tricuspid regurgitation. No reports of prior studies offered for comparison. CTA of the chest, abdomen, and pelvis was performed on 11/04/16 and transthoracic echocardiogram was performed on 11/04/16. HOSPITAL COURSE OF STAY: For full details, please refer to the H and P provided by Сергей Leroy NP, on 11/04/16. In summary, Ms. Norwood is a 56-year -old female with a very complex medical history as stated above, who presented to our ED on 11/04/16 reporting an unsafe discharge from [facility]. The patient reports in early October, she had been admitted for lower extremity edema and wounds as well as deconditioning. During that admission, she qualified for hospice and had spoken with Dr. Luna at that time and was started on methadone. However, she did not opt to be set up with hospice during that admission and was to establish with hospice as an outpatient. However, upon presentation and evaluation in our ER, it was noted that she was requiring more oxygen and she also was reporting difficulty swallowing and increased shortness of breath. The patient was admitted with concern for acute on chronic respiratory failure, concern for COPD exacerbation and possible CHF exacerbation and concern for dysphagia with weight loss. Upon obtaining records from [facility] and through discussion with the patient's PCP, it was determined that the patient has been on chronic prednisone at extremely high dose for several years. The patient reports that she has been on 60 mg of prednisone for several years and that this has been managed by Dr. Blake. She has reported that she has been unable to be weaned from this dose and has been resistant on two attempts this admission to wean the dose unless it was done by her primary maintenance pipefitter. Consequently, the patient does have many secondary issues from this chronic steroid use, which includes cachexia, malnutrition, osteoporosis, chronic wounds, skin changes, and diabetes. Multiple providers have had discussions with the patient who recognizes that her steroid dose is inappropriate but states that it is difficult to wean her off. She was unwilling to try it here in the hospital and we are prevented from doing so due to the fact that she developed a UTI and there was concern for attempts to wean with an acute infection and known adrenal insufficiency. I did encourage the patient if she is choosing to go to rehab and to hold off on hospice, that it will beneficial for her to be weaned from the steroids and that this could be done safely in close coordination with her PCP or physician at the facility. The patient agrees with this. During her stay here, she also had a second palliative care consult with our facility's palliative care physician Dr. Wilson. In that conversation, it was determined that the patient would like to continue being DNR/DNI and stated that she wanted to give short-term rehab a chance. She discussed with Dr. Wilson that if she does not do well and if it does not improve her quality of life, then she will enroll with hospice and she will have follow up with Dr. Luna at [facility]. In terms of her medical issues again, the patient is back at her baseline for her COPD. No additional steroids were given. The patient was started on Dulera here for management of this. She is at her home O2 level. In terms of her cachexia, nutritional services and panman consults have recommended the patient be maintained on a regular diet so that she can choose more options to help manage her malnutrition. The patient has been weighed daily, she was 91 pounds at one point during this admission, but at discharge was at 95 pounds. In terms of her dysphagia, the patient had speech pathology, swallow evaluation that was within normal limits and she has had no further issues with this. In terms of the patient's cardiomyopathy and question of CHF, we have held her furosemide for most of this admission as she had appeared dry and has not demonstrated any lower extremity swelling. We resumed this judiciously on a PRN basis with careful monitoring of her fluid status. For her diabetes, we have decreased her Lantus dose as she has had multiple hypoglycemic episodes in the 30s, but she has had relatively good blood sugar control with her lispro sliding scale insulin. In regards to her chronic pain, we have continued her on methadone which was recently started by Dr. Luna of [facility]. The patient has also received p.r.n. Lost Creek for breakthrough pain with good effect. In regards to the patient's history of depression and anxiety, she is very emotional and labile. We have offered her supportive care with student development dean visits. She is able to manage facts, although she has very disorganized thoughts and becomes very agitated very easily. I have started her on p.r.n. Xanax. She is only open to taking half a tablet at this time, although I do feel that she could probably go up on this and tolerate it. She does require a lot of detail and needs to be fully informed before participating in activities in order to help manage her anxiety. She did have a psychiatry consult in [place], who deemed her able to make decisions. They felt that she did have issues with depression and anxiety. She was started on Zoloft and Xanax at [facility], which has been continued here and titrated. Continued titration is recommended. The patient was found to have a urinary tract infection during this admission. She was treated with 4 days of ceftriaxone. Multiple times, I had informed the patient that it will be beneficial for her to remove the Rojo catheter as it is in by her request, initially as a comfort care measure. However, since the patient has opted for rehab, I have informed her that it is inappropriate to have the Rojo catheter still and that with urinary tract infection, it is colonized with bacteria and likely to cause repeat infections. The patient is understanding of this, but has refused to have the Rojo catheter removed and states that she will deal with this at [facility]. This has been documented in our records and again multiple attempts have been made to have the Rojo catheter removed, but the patient has declined and refused to have nursing do so. Per Physical Therapy this morning, they report that the patient has good tolerance to exercise and transfers and that shortness of breath and maximal deconditioning are her main limiting factors in mobility, but that she has good rehab potential. The patient is without complaint. She is very excited for rehab. She denies any acute pain, shortness of breath beyond her baseline, and is eager to go. CONCERNS AT DISCHARGE: The patient will be discharged to [facility] for subacute rehab on 11/10/16. She should follow up with the facility physician and then with her PCP upon discharge from the facility. DIET: Regular diet. The patient has been informed to make better protein choices and less choices with high amounts of sugar. ACTIVITY: As tolerated and with assist. CONDITION: Guarded. DISPOSITION: To [facility] for subacute rehab. TIME SPENT: Time spent on this discharge was approximately 65 minutes. Again, this is only a brief summary of the patient's hospital course of stay. For full details, please refer to the full medical record and consultations. If you have any further questions, please feel free to contact me at . KEKE GAXIOLA NP CC: Dr. Lisa Jules. * [id number]/CPS #: [id number] MTDD
[2016-11-10] MEDS ORDERED: ALPRAZolam TAB* 0.25 MG PO ONE (12:14)
[2016-11-10] MEDS: HYDROcodone/ACETAMIN 5-325 MG* 1 TAB PO PRN (14:39)
[2016-11-10] MEDS: Insulin GLARGINE(*) 1 UNITS UNIT SUBCUT SCH (21:16)
[2016-11-10] MEDS: ALPRAZolam TAB* 0.25 MG PO SCH (21:17)
[2016-11-11] MEDS: ALPRAZolam TAB* 0.25 MG PO PRN ×2 (02:31→12:08)
[2016-11-11] MEDS: HYDROcodone/ACETAMIN 5-325 MG* 1 TAB PO PRN ×2 (06:03→12:09)
[2016-11-11] MEDS: Heparin VIAL(*) 5000 UNITS/ML VIAL (FIVE THOUSAND) SUBCUT SCH (06:03)
[2016-11-11] MEDS: predniSONE TAB* 20 MG PO SCH (06:11)
[2016-11-11] MEDS: Insulin LISPRO* 1 UNITS UNIT SUBCUT SCH ×2 (07:39→12:08)
[2016-11-11] MEDS: Lisinopril TAB* 5 MG PO SCH (08:26)
[2016-11-11] MEDS: Omeprazole CAP* 20 MG PO SCH (08:26)
[2016-11-11] MEDS: Thiamine TAB* 100 MG TAB PO SCH (08:27)
[2016-11-11] MEDS: Folic Acid TAB* 1 MG PO SCH (08:27)
[2016-11-11] MEDS: Multivitamins/Minerals TAB PO SCH (08:27)
[2016-11-11] MEDS: ceFUROXime TAB(*) 250 MG PO SCH (08:27)
[2016-11-11] MEDS: Sertraline* 25 MG TAB PO SCH (08:27)
[2016-11-11] MEDS: Potassium Chlor TAB* 20 MEQ TAB.ER PO SCH (08:28)
[2016-11-11] MEDS: Metoprolol Tartrate TAB* 25 MG PO SCH (08:28)
[2016-11-11] MEDS: Methadone TAB* 5 MG PO SCH (08:28)
[2016-11-11 09:30] VITALS: BP 146/77
[2016-11-11] MEDS: Mometasone/Formoter 100/5 MDI INH SCH (10:02)
--- NOTE | 2016-11-11 18:04 | PN ---
Hospitalist Progress Note Patient was successfully discharged to [facility]. Please see full discharge summary for details. All questions and concerns were addressed at time of discharge.
--- NOTE | 2016-11-13 16:54 | PN ---
Hospitalist Progress Note HOSPITALIST ADDENDUM Called by Dr. Jules - she has received Mrs. Norwood's discharge summary and was alarmed by the prednisone dose she was discharged. After reviewing the chart, I believe this is likely a typo as patient was receiving 60mg/day (20mg TID). Her PCP tells me patient is manipulative and has been abusing prednisone for a long time. Many of her health issues now are steroid relate and patient refuses to taper the dose. I called [place] - Mrs. Norwood is under Dr. Devika Harper's care - I've called and left a message asking her to call me back so we can adjust the prednisone dose.
--- NOTE | 2016-11-17 14:59 | DS ---
CC: Dr. Jules DISCHARGE SUMMARY: * DATE OF ADMISSION: DATE OF DISCHARGE: ADDENDUM: This is an addendum to the discharge/transfer summary dictated on . There was a mistake noted in the discharge medicine transfer summary for 11/11/16. In regards to the patient's home medications at discharge - correction: The patient should be on prednisone 60 mg daily. This is dosed as 20 mg t.i.d. to make a daily dose of 60 mg. This was conveyed accurately in the discharge instructions and has been conveyed to the rehab staff at [facility] [place] [id number]/CPS #: [id number] MTDD
--- NOTE | 2016-11-21 17:41 | ED ---
Allen Guerra Adam, scribed for Alexi Licea MD on 11/04/16 at 1219 . Shortness of Breath - HPI Summary HPI Summary: Pt is a 56 year old female presenting with SOB, pain in her extremities, and multiple other complaints. She states that her chief complaint at the moment of being examined is pain in her extremities. She also reports numbness and tingling in her extremities, particularly in her left arm. She also reports intermittent CP, nausea, vomiting, and weakness. Pt states that after being diagnosed with PNA and COPD years ago, her steroid dosage was increased gradually until she was taking 20 mg 3x daily. Then her steroids were stopped suddenly and she ended up in the hospital. 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 She is now on prednisone again (same dosage of 20 mg 3x daily) and she uses 3 L o2 at home. She was hospitalized recently after experiencing weakness, numbness, visual disturbance, blisters, pedal edema, and several falls (after slipping on the fluid from her legs). She was discharged from the hospital on 10/27 and informed that she has CHF. She states that [facility] order to regain strength. Pt states that she has only produced about 1 cup of urine since 10/27 ("trickles here and there"). She has also lost 20 lbs in the past 1.5 months. She expressed desire to see psychiatrist also and states that she was recently put on 0.5 mg of Zoloft. 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 - History of Current Complaint Time Seen by Provider: 11/04/16 12:06 Hx Obtained From: Patient Onset/Duration: Gradual Onset, Lasting Weeks, Still Present Timing: Constant Current Severity: Moderate Dyspnea At: Rest Aggrevating Factors: Movement Alleviating Factors: Oxygen Associated Signs & Symptoms: Chest Pain Unrelated to Cough, Edema - Allergy/Home Medications Allergies/Adverse Reactions: Allergies Allergy/AdvReac Type Severity Reaction Status Date / Time Morphine Allergy Nausea And Verified 11/04/16 12:12 Vomiting Penicillins Allergy Unknown Verified 05/14/13 17:42 Reaction Details Pregabalin [From Lyrica] Allergy Unknown Verified 11/04/16 12:12 Reaction Details Home Medications: Home Medications ALPRAZolam TAB* [Xanax TAB*] 0.125 mg PO BEDTIME 11/04/16 [History Confirmed ] Albuterol Sulfate [Proair Respiclick] 1 puff INH .Q4-6H PRN 11/04/16 [History Confirmed 11/04/16] Ergocalciferol [Vitamin D2] 800 unit PO DAILY 11/04/16 [History Confirmed ] Furosemide TAB* [Lasix TAB*] 20 mg PO DAILY 11/04/16 [History Confirmed 11/04/16 ] Insulin GLARGINE(*) [Lantus(*)] 18 units SUBCUT BID 11/04/16 [History Confirmed 11/04/16] Lisinopril [Lisinopril 2.5 MG-] 2.5 mg PO DAILY 11/04/16 [History Confirmed ] Methadone TAB* [Dolophine TAB*] 5 mg PO BID MDD 10 mg 11/04/16 [History Confirmed 11/04/16] Metoprolol Tartrate TAB* [Lopressor TAB*] 25 mg PO BID 11/04/16 [History Confirmed 11/04/16] Pantoprazole TAB (NF) [Protonix TAB (NF)] 40 mg PO DAILY 11/04/16 [History Confirmed 11/04/16] Potassium Chlor TAB* [Klor Con ER TAB*] 20 meq PO DAILY 11/04/16 [History Confirmed 11/04/16] S-Adenosylmethionine [Manuel-E] 200 mg PO DAILY 11/04/16 [History Confirmed ] Senna TAB* [Senokot TAB*] 2 tab PO DAILY PRN 11/04/16 [History Confirmed ] Sertraline* [Zoloft*] 12.5 mg PO QAM 11/04/16 [History Confirmed 11/04/16] predniSONE TAB* [Deltasone TAB*] 20 mg PO TID 11/04/16 [History Confirmed ] PMH/Surg Hx/FS Hx/Imm Hx Endocrine/Hematology History: Reports: Hx Diabetes Cardiovascular History: Reports: Hx Congestive Heart Failure Respiratory History: Reports: Hx Asthma, Hx Chronic Obstructive Pulmonary Disease (COPD) Musculoskeletal History: Comment Only: Hx Osteoporosis - unknown family hx - Family History Known Family History: Positive: Other - Unknown FMHx of osteoporosis - Social History Occupation: Disabled Lives: With Family - Hx Substance Use: No Substance Use Type: Reports: None Review of Systems Positive: Fatigue Positive: Chest Pain Positive: Shortness Of Breath Positive: Vomiting, Nausea Positive: dysuria - Scant output Positive: Myalgia - Extremities, Edema Positive: Other - Blisters Positive: Weakness, Numbness All Other Systems Reviewed And Are Negative: Yes Physical Exam - Summary Physical Exam Summary: Constitutional: Well-developed, Well-nourished, Alert. (-) Distressed Skin: Warm, Dry HENT: Normocephalic; Atraumatic Eyes: Conjunctiva normal Neck: Musculoskeletal ROM normal neck. (-) JVD, (-) Stridor, (-) Tracheal deviation Cardio: Rhythm regular, rate normal, Heart sounds normal; Intact distal pulses; The pedal pulses are 2+ and symmetric. Radial pulses are 2+ and symmetric. (-) Murmur Pulmonary/Chest wall: Effort normal. Bibasilar rales. Abd: Soft, (-) Tenderness, (-) Distension, (-) Guarding, (-) Rebound Musculoskeletal: (-) Edema Lymph: (-) Cervical adenopathy Neuro: Alert, Oriented x3 Psych: Mood and affect Normal Triage Information Reviewed: Yes Vital Signs Reviewed: Yes Diagnostics - Laboratory Result Diagrams: 11/04/16 12:10 11/04/16 12:10 Lab Statement: Any lab studies that have been ordered have been reviewed, and results considered in the medical decision making process. - EKG 11:51 Cardiac Rate: Tachycardia - 103 BPM EKG Rhythm: Sinus Tachycardia EKG Interpretation: No STEMI. TWI V3-V6 - Additional Comments Diagnostic Additional Comments: Troponin I - 0.03 Carbon Dioxide - 42 Influenza A (Rapid) - Negative Influenza B (Rapid) - Negative Course/Dx - Diagnoses Provider Diagnoses: CHF exacerbation Discharge - Discharge Plan Condition: Guarded Disposition: ADMITTED TO [facility] documentation as recorded by the Allen wheatley Adam accurately reflects the service I personally performed and the decisions made by me, Alexi Licea MD.
== END 2016-11-11 12:24 | DRG 140 ==
LOC: ED 12:03 → MED 13:37
PROVIDERS: ADMIT Internal Medicine; ATTEND Internal Medicine
DX: J44.1 Chronic obstructive pulmonary disease with (acute) exacerbation (principal); J96.22 Acute and chronic respiratory failure with hypercapnia; E43 Unspecified severe protein-calorie malnutrition; R64 Cachexia; N39.0 Urinary tract infection, site not specified; I11.0 Hypertensive heart disease with heart failure; E24.2 Drug-induced Cushing's syndrome; I50.9 Heart failure, unspecified; B96.20 Unspecified Escherichia coli [E. coli] as the cause of diseases classified elsewhere; E11.9 Type 2 diabetes mellitus without complications; E27.40 Unspecified adrenocortical insufficiency; Z68.1 Body mass index [BMI] 19.9 or less, adult; G89.29 Other chronic pain; F32.9 Major depressive disorder, single episode, unspecified; F41.9 Anxiety disorder, unspecified; F17.210 Nicotine dependence, cigarettes, uncomplicated; M81.0 Age-related osteoporosis without current pathological fracture; Z99.81 Dependence on supplemental oxygen; Z66 Do not resuscitate; Z79.891 Long term (current) use of opiate analgesic; Z79.52 Long term (current) use of systemic steroids; Z79.899 Other long term (current) drug therapy; Z88.6 Allergy status to analgesic agent; Z88.0 Allergy status to penicillin; Z88.8 Allergy status to other drugs, medicaments and biological substances; Z86.711 Personal history of pulmonary embolism; Z79.4 Long term (current) use of insulin
CPT/HCPCS: 36415; 71010; 71275; 74177; 80048; 80053; 81003; 81015; 82947; 83036; 83605; 83880; 84134; 84443; 84484; 85025; 87040; 87077; 87086; 87186; 87502; 93005; 93306; 94640; 94760; A9270-GY; J0696; J1644; J2060; J2405; J7512; Q9967

== ENCOUNTER 2016-11-17 11:53 | Inpatient (IN) | payer BC ==
[2016-11-17] MEDS ORDERED: Albuterol/Ipratropium NEB.SOL* Albuterol 2.5 MG/Ipratropium 0.5 MG 3 ML INH ONE (12:39)
[2016-11-17 12:47] LABS: Add Diff/Slide Review? Slide Review Added; Comments Flag Yes; Hematocrit 40 % (35-47); Hemoglobin 13.5 g/dl (12.0-16.0); Mean Corpuscular HGB Conc 34 g/dl (31-36); Mean Corpuscular Hemoglobin 31 pg (27-31); Mean Corpuscular Volume 92 fL (80-97); Mean Platelet Volume 8 um3 (7.4-10.4); Red Blood Count 4.35 10^6/ul (4.0-5.4); Red Cell Distribution Width 14 % (10.5-15)
--- NOTE | 2016-11-17 12:49 | RAD ---
Indication: Shortness of breath. Single frontal view of the chest performed at 1230 hours was reviewed. Comparison is made with previous exam dated November 04, 2016. There is new airspace disease in the right base consistent with right basilar pneumonia. Left lung field is clear. No mediastinal shift is noted. Heart is of normal size and configuration. IMPRESSION: RIGHT BASILAR INFILTRATE CONSISTENT WITH RIGHT BASILAR PNEUMONIA.
[2016-11-17] MEDS ORDERED: NS 0.9% 1000 ML* 1,000 ML IV ONE (12:54)
[2016-11-17] MEDS ORDERED: Levofloxacin 750 MG IVPREMIX(* 750 MG/150 ML BAG IVPB ONE (12:54)
[2016-11-17 13:06] LABS: Albumin 2.9 g/dL (3.2-5.2); BUN/Creatinine Ratio 46.9 (8-20); EGFR African American 276.7 (>60); EGFR Non-African American 215.2 (>60); Globulin 3.1 g/dL (2-4); Potassium 4.5 mmol/L (3.5-5.0); Total Bilirubin 0.5 mg/dL (0.2-1.0)
[2016-11-17 13:16] LABS: Troponin I 0.06 ng/mL (<0.04)
[2016-11-17 13:37] LABS: Immature Granulocytes 22 % (0-9); Metamyelocytes % 1 % (0-2); Neutrophil % 64 % (38-83); RBC Morphology Normal (Normal); Reactive Lymph % 1 % (0-6)
[2016-11-17] MEDS ORDERED: Dextrose 50% Syringe 50 ML* 25 GM/50 ML SYRINGE IV PUSH ONE (13:56)
[2016-11-17 14:06] LABS: C Reactive Protein 483.76 mg/L (< 5.00)
[2016-11-17] MEDS ORDERED: methylPREDNISolone 125 MG* 2 ML VIAL IV ONE (14:50)
[2016-11-17] MEDS ORDERED: Vancomycin(*) 1,000 MG in NS 0.9% 250 ML* 250 ML IVPB SCH (14:51)
[2016-11-17] MEDS ORDERED: NS 0.9% 1000 ML* 1,000 ML IV SCH (15:00)
[2016-11-17] MEDS ORDERED: ALPRAZolam TAB* 0.25 MG ONE (15:19)
[2016-11-17] MEDS: ALPRAZolam TAB* 0.25 MG PO PRN (15:20)
[2016-11-17] MEDS ORDERED: Vancomycin(*) 750 MG in NS 0.9% 250 ML* 250 ML IVPB ONE (16:00)
--- NOTE | 2016-11-17 16:13 | ED ---
sharmaine Guerra Timothy, scribed for Mat Cole MD on 11/17/16 at 1218 . Shortness of Breath - HPI Summary HPI Summary: Julia Norwood is a 56 yo female presenting to [facility] with SOB since 1100 today. She states her Sx began yesterday, but have been getting progressively worse. She is usually on O2 at [facility]. Her is present in room, helping to give the Hx as she is still having difficulty breathing. She is on 60 mg of prednisone. She is also on nebulizers PRN. She has not had a nebulizer Tx today. She states her blood sugar has been fluctuating recently as well. The doctor at [facility] mentioned that she might have pneumonia. Her MHx includes CHF, HTN, COPD, athma, pneumonia, osteoperosis, adrenal insufficiency, DM. - History of Current Complaint Chief Complaint: ED Time Seen by Provider: 11/17/16 12:09 Hx Obtained From: Patient, Family/Machinist Helper Onset/Duration: Gradual Onset, Lasting Days, Still Present, Worse Since - today Timing: Constant Current Severity: Moderate Dyspnea At: Rest Associated Signs & Symptoms: Cough (Nonproductive) - Allergy/Home Medications Allergies/Adverse Reactions: Allergies Allergy/AdvReac Type Severity Reaction Status Date / Time Morphine Allergy Nausea And Verified 11/04/16 12:12 Vomiting Penicillins Allergy Unknown Verified 05/14/13 17:42 Reaction Details Pregabalin [From Lyrica] Allergy Unknown Verified 11/04/16 12:12 Reaction Details PMH/Surg Hx/FS Hx/Imm Hx Endocrine/Hematology History: Reports: Hx Diabetes, Other Endocrine/ Hematological Disorders - Adrenal insufficency Cardiovascular History: Reports: Hx Congestive Heart Failure, Hx Hypertension Respiratory History: Reports: Hx Asthma, Hx Chronic Obstructive Pulmonary Disease (COPD) - severe COPD on home O2, Hx Pneumonia Musculoskeletal History: Comment Only: Hx Osteoporosis - unknown family hx Sensory History: Reports: Hx Contacts or Glasses Opthamlomology History: Reports: Hx Contacts or Glasses - Surgical History Surgery Procedure, Year, and Place: L shoulder repair, L hip repair Infectious Disease History: No Infectious Disease History: Denies: Traveled Outside the [place] in Last 30 Days - Family History Known Family History: Positive: Unknown - Pt is adopted and has no record of FHx. - Social History Alcohol Use: Rare Substance Use Type: Reports: None Smoking Status (MU): Former Smoker Type: Cigarettes Amount Used/How Often: 1PPD Have You Smoked in the Last Year: Yes Review of Systems Constitutional: Other - fluctuating blood sugar Eyes: Negative ENT: Negative Cardiovascular: Negative Positive: Shortness Of Breath, Cough Gastrointestinal: Negative Genitourinary: Negative Musculoskeletal: Negative Skin: Negative Neurological: Negative Psychological: Normal All Other Systems Reviewed And Are Negative: Yes Physical Exam Triage Information Reviewed: Yes Vital Signs On Initial Exam: Initial Vitals Temp Pulse Resp BP Pulse Ox 96.9 F 113 24 115/65 100 11/17/16 12:06 11/17/16 12:06 11/17/16 12:06 11/17/16 12:06 11/17/16 12:06 Vital Signs Reviewed: Yes Appearance: Positive: Well-Appearing, No Pain Distress Skin: Positive: Warm, Skin Color Reflects Adequate Perfusion, Dry Head/Face: Positive: Normal Head/Face Inspection Eyes: Positive: Normal ENT: Positive: Normal ENT inspection Neck: Positive: Supple, Nontender Respiratory/Lung Sounds: Positive: Clear to Auscultation, Decreased Breath Sounds. Negative: Wheezes Cardiovascular: Positive: RRR Abdomen Description: Positive: Nontender, Soft Bowel Sounds: Positive: Present Musculoskeletal: Positive: Normal Neurological: Positive: Normal Psychiatric: Positive: Normal, Affect/Mood Appropriate Diagnostics - Vital Signs Vital Signs Temp Pulse Resp BP Pulse Ox 11/17/16 12:06 96.9 F 113 24 115/65 100 - Laboratory Lab Results: Lab Results 11/17/16 11/17/16 11/17/16 Range/Units 12:30 12:30 12:30 WBC 10.0 (3.5-10.8) 10^3/ul RBC 4.35 (4.0-5.4) 10^6/ul Hgb 13.5 (12.0-16.0) g/dl Hct 40 (35-47) % MCV 92 (80-97) fL MCH 31 (27-31) pg MCHC 34 (31-36) g/dl RDW 14 (10.5-15) % Plt Count 226 (150-450) 10^3/ul MPV 8 (7.4-10.4) um3 Immature Gran % (Auto) 22 H (0-9) % Neut % (Auto) 89.3 H (38-83) % Lymph % (Auto) 7.3 L (25-47) % Juab % (Auto) 2.9 (1-9) % Eos % (Auto) 0 (0-6) % Baso % (Auto) 0.5 (0-2) % Absolute Neuts (auto) 9.0 H (1.5-7.7) 10^3/ul Absolute Lymphs (auto) 0.7 L (1.0-4.8) 10^3/ul Absolute Monos (auto) 0.3 (0-0.8) 10^3/ul Absolute Eos (auto) 0 (0-0.6) 10^3/ul Absolute Basos (auto) 0.1 (0-0.2) 10^3/ul Absolute Nucleated RBC 0 10^3/ul Neutrophils % 64 (38-83) % Band Neutrophils % 21 H (0-8) % Lymphocytes % 10 L (25-47) % Reactive Lymphs % 1 (0-6) % Monocytes % 3 (0-13) % Metamyelocytes % 1 (0-2) % Nucleated RBC % 0 Normal RBC Morphology Normal (Normal) Sodium 127 L (133-145) mmol/L Potassium 4.5 (3.5-5.0) mmol/L Chloride 81 L (101-111) mmol/L Carbon Dioxide 43 H* (22-32) mmol/L Anion Gap 3 (2-11) mmol/L BUN 15 (6-24) mg/dL Creatinine 0.32 L (0.51-0.95) mg/dL Est GFR ( Amer) 276.7 (>60) Est GFR (Non-Af Amer) 215.2 (>60) BUN/Creatinine Ratio 46.9 H (8-20) Glucose 57 L (70-100) mg/dL Lactic Acid 1.1 (0.5-2.0) mmol/L Calcium 10.0 (8.6-10.3) mg/dL Total Bilirubin 0.50 (0.2-1.0) mg/dL AST 28 (13-39) U/L ALT 30 (7-52) U/L Alkaline Phosphatase 88 (34-104) U/L Troponin I 0.06 H* (<0.04) ng/mL C-Reactive Protein 483.76 H (< 5.00) mg/L B-Natriuretic Peptide ( - 100) pg/mL Total Protein 6.0 L (6.4-8.9) g/dL Albumin 2.9 L (3.2-5.2) g/dL Globulin 3.1 (2-4) g/dL Albumin/Globulin Ratio 0.9 L (1-3) 11/17/ Range/Units 12:30 WBC (3.5-10.8) 10^3/ul RBC (4.0-5.4) 10^6/ul Hgb (12.0-16.0) g/dl Hct (35-47) % MCV (80-97) fL MCH (27-31) pg MCHC (31-36) g/dl RDW (10.5-15) % Plt Count (150-450) 10^3/ul MPV (7.4-10.4) um3 Immature Gran % (Auto) (0-9) % Neut % (Auto) (38-83) % Lymph % (Auto) (25-47) % Juab % (Auto) (1-9) % Eos % (Auto) (0-6) % Baso % (Auto) (0-2) % Absolute Neuts (auto) (1.5-7.7) 10^3/ul Absolute Lymphs (auto) (1.0-4.8) 10^3/ul Absolute Monos (auto) (0-0.8) 10^3/ul Absolute Eos (auto) (0-0.6) 10^3/ul Absolute Basos (auto) (0-0.2) 10^3/ul Absolute Nucleated RBC 10^3/ul Neutrophils % (38-83) % Band Neutrophils % (0-8) % Lymphocytes % (25-47) % Reactive Lymphs % (0-6) % Monocytes % (0-13) % Metamyelocytes % (0-2) % Nucleated RBC % Normal RBC Morphology (Normal) Sodium (133-145) mmol/L Potassium (3.5-5.0) mmol/L Chloride (101-111) mmol/L Carbon Dioxide (22-32) mmol/L Anion Gap (2-11) mmol/L BUN (6-24) mg/dL Creatinine (0.51-0.95) mg/dL Est GFR ( Amer) (>60) Est GFR (Non-Af Amer) (>60) BUN/Creatinine Ratio (8-20) Glucose (70-100) mg/dL Lactic Acid (0.5-2.0) mmol/L Calcium (8.6-10.3) mg/dL Total Bilirubin (0.2-1.0) mg/dL AST (13-39) U/L ALT (7-52) U/L Alkaline Phosphatase (34-104) U/L Troponin I (<0.04) ng/mL C-Reactive Protein (< 5.00) mg/L B-Natriuretic Peptide 362 H ( - 100) pg/mL Total Protein (6.4-8.9) g/dL Albumin (3.2-5.2) g/dL Globulin (2-4) g/dL Albumin/Globulin Ratio (1-3) Result Diagrams: 11/17/16 12:30 11/17/16 12:30 Lab Statement: Any lab studies that have been ordered have been reviewed, and results considered in the medical decision making process. - Radiology CXR Xray Interpretation: Positive (See Comments) - IMPRESSION: RIGHT BASILAR INFILTRATE CONSISTENT WITH RIGHT BASILAR PNEUMONIA. Radiology Interpretation Completed By: Radiologist - EKG 1253 Cardiac Rate: Tachycardia - 111 BPM EKG Interpretation: Sinus tachycardia @ 111 BPM, nonspecific changes Course/Dx - Course Assessment/Plan: Julia Norwood is a 56 yo [facility] today. After tachycardic EKG, high troponin, and CXR indicating right basilar infiltrate, and discussion with Dr. Bae, she will be admitted to [facility] with pneumonia and sepsis for further evaluation and Tx. We tried to wean her off O2 here but her SPO2 dropped into the 80's when her O2 was at 8 liters. - Diagnoses Provider Diagnoses: Pneumonia involving right lung, Sepsis - Physician Notifications Discussed Care of Patient With: 1302 - Dr. Bae (hospitalist) - discussed Pt condition and results of CXR. Agrees to admit Pt. Instructed by Provider To: Admit As Inpatient - Critical Care Time Critical Care Time: 30-74 min Discharge - Discharge Plan Condition: Stable Disposition: ADMITTED TO [facility] The documentation as recorded by the scribe, van Elmore,Jose F accurately reflects the service I personally performed and the decisions made by me, Mat Cole MD.
--- NOTE | 2016-11-17 16:30 | CONSULT ---
Consult Consult: CRITICAL CARE MEDICINE Date: 11/17/16 Time: 154 Patient seen and discussed with SPECIALTY FINISHING UTILITY PERSON and admitting hospitalist (see admission note ) Agree with golf cart mechanic findings and assessment. Vital signs: Reviewed. PE: awake, tangential communication. tachy to 130s. cachexia. prolonged forced exhalation. She exclaims over and over again that she just wants to be left alone "give me minutes with the lights off". I attempted to interject without resolution. We eventually discussed further in regards to her perscribed therapies and that we are offering HFO2 to see if we can allieviate some of her air hunger and flow starvation. She was agreeable to this. She had already received prednisone, xanax in ED. She was previous DNR, but rescinded this am. Every attempted I had with her to re-discuss was met with resistance. She adamantly refuses bipap and intubation. She however would desire cpr. I explained that she is a poor candidate at any stage for cpr. She still desires currently. h/o tob use LABS: Reviewed. IMAGING: Reviewed. RLL new infiltrate from prior cxr here. MEDICATIONS: Reviewed. ASSESSMENT/PLAN: 56 F with end stage copd resp failure, apparently previously on hospice with acute exacerbation and acute on chronic hypoxic and hypercarbic resp failure unable to thrive due to end stage, cachexia, non-adherence, anxiety disorder. Unlikely to survive this acute pna with her underlying ailment but can tx with abx, steroids, copd adjunctives, and IVF as you are doing. Place on HFO2 early and see if she can become more comfortable and find any balance with her lung disease and demand. No bipap nor intubation, nor do I think either would benefit her anyhow. She desires to dictate her own prescriptive care and we do not support that. We are ok with trying to find an appropriate balance since she holds capacity, but also utilizing what is medically prudent versus futile. We cannot allow her to currently to take po as she is already having difficulty with her cough and secretions post pna and is at too great of risk currently for aspiration and to allow such. Can f/u upon. If she would accept the consequences of her actions (ie from aspiration) then we would be more inclined to support those endeavors, but since she cannot illicit rationale medical care nor can she prescribe, then we must follow best practice with her current dynamics and support her decision for DNI, no bipap and unfortunately honor her request for cpr if and when it comes to this futility. Further plan and care per SPECIALTY FINISHING UTILITY PERSON's note and orders. Supportive and preventative care as ordered. Disposition: ICU with hospitalists Code Status: Full cpr, DNI, no bipap. will trial HFO2 Critical Care Time: 35 minutes Trinidad Thayer DO
[2016-11-17] MEDS: Cefepime(*) 1 GM in NS 0.9% 50 ML* 50 ML IVPB SCH (18:44)
[2016-11-17] MEDS: Albuterol/Ipratropium NEB.SOL* Albuterol 2.5 MG/Ipratropium 0.5 MG 3 ML INH SCH (20:22)
[2016-11-17] MEDS: ALPRAZolam TAB* 0.25 MG PO SCH (20:24)
[2016-11-17] MEDS: Methadone TAB* 5 MG PO SCH (20:24)
--- NOTE | 2016-11-17 21:42 | HP ---
ATTENDING PHYSICIAN ADDENDUM NOW INCLUDED ON THIS REPORT HISTORY AND PHYSICAL: DATE OF ADMISSION: 11/17/16 AGE: 56. PRIMARY CARE PROVIDER: Dr. Lisa Jules. ATTENDING PHYSICIAN: Dr. Liss Bae *(dictated by Tali Platt NP). CHIEF COMPLAINT: Shortness of breath. HISTORY OF PRESENT ILLNESS: Ms. Norwood is a 56-year-old female with significant and very complex medical history who presented to the emergency room today from [facility] with complaints of shortness of breath worsening over the last 2 to 3 days. The patient also notes that over the last 2 to 3 days, she has had low oxygen saturations. The patient reports intermittent fever and chills. She reports productive cough with green and yellow-tinged sputum. The patient also reports generalized pain. The patient' s also reports that she had hypoglycemia today and required Glucagon and orange juice at the care home. He reports her glucose was in the 30s and was up to 107 prior to the patient coming to the emergency room. The patient's normal glucoses are in the 110s to 120s. The patient reports that her breathing has progressively been getting worse. She is on oxygen at 3 L via nasal cannula at baseline for COPD and chronic hypercapnia respiratory failure. The patient's , who is present in the room, assisted in giving the history as the patient was having difficulty breathing. The patient has declined nebulizers at the care home. Due to the provider at [facility] feeling the patient may have pneumonia, she was sent to the emergency room for further evaluation of her symptoms. While in the emergency room, the patient had a chest x-ray showing a right basilar infiltrate consistent with a right basilar pneumonia. The patient had labs significant for a sodium of 127 and a CO2 of 81 in her comprehensive metabolic panel. The patient had a CRP of 483.76. Troponin slightly elevated at 0.06. Lactic acid of 1.1. The patient does not have leukocytosis with a white blood cell count of 10.0. While in the emergency room, the patient declined nebulizer. She was given IV dextrose due to her glucose of 57 while in the emergency room. She was also given a dose of Levaquin, a dose of Solu- Medrol, and a liter of normal saline. Based off the patient's presentation, the Hospitalists were asked to evaluate the patient for possible admission. The patient was recently admitted from 11/04/16 to 11/10/16 at which time she was treated for acute on chronic respiratory failure with hypercapnia, urinary tract infection, and cachexia. During the patient's stay, had been attempted to wean the patient down off of her prednisone as the patient was having many issues secondary to her chronic steroid use including malnutrition, osteoporosis , chronic wound, skin changes, diabetes, and cachexia. The patient was unwilling to try this. The patient also had a Palliative Care consult during her stay. The patient declined Palliative Care services and opted for short- term rehab. It is to note the patient was found to have a urinary tract infection during that admission and was treated with ceftriaxone in the hospital. She was continued on cefuroxime at the care home. At that time, the patient declined to have her Rojo catheter removed. She was discharged to rehab with her Rojo catheter. PAST MEDICAL HISTORY: 1. Severe COPD. 2. Chronic pain. 3. Anxiety and depression. 4. Congestive heart failure. 5. Diabetes mellitus. 6. Hypertension. 7. Remote history of pulmonary embolism. 8. Adrenal insufficiency. PAST SURGICAL HISTORY: 1. Status post D and C. 2. Status post left collar bone repair. HOME MEDICATIONS: Include: 1. Prednisone 20 mg oral 3 times daily. 2. Folic acid 1 mg oral daily. 3. Lantus 10 units subcutaneous daily. 4. Multivitamin 1 tablet oral daily. 5. Dulera 100/5 two puffs inhalation every morning. 6. Thiamine 100 mg oral daily. 7. Methadone 5 mg oral every 12 hours. 8. Sertraline 25 mg oral daily. 9. S-adenosylmethionine 200 mg oral daily. 10. Potassium chloride 20 mEq oral daily. 11. Pantoprazole 40 mg oral daily. 12. Metoprolol tartrate 25 mg oral twice daily. 13. Lisinopril 2.5 mg oral daily. 14. Vitamin D 800 units oral daily. 15. Xanax 0.125 mg daily at bedtime. 16. Hampshire 10/325 one tablet every 4 hours as needed for pain. 17. Cefuroxime 250 mg oral twice daily. 18. Xanax 0.125 mg oral every 8 hours as needed for anxiety. 19. Senokot 8.6 mg 2 tablets oral daily as needed for constipation. 20. Albuterol nebulizer 0.083% inhalation every 4 hours as needed for shortness of breath or wheeze. 21. Furosemide 20 mg oral daily for greater than 2-pound weight gain or bilateral lower extremity edema. 22. Zofran 4 mg oral every 4 hours as needed for nausea. 23. Hampshire 5/325 one tablet oral every 4 hours as needed for pain. ALLERGIES: 1. MORPHINE causes nausea and vomiting. 2. PENICILLIN. 3. LYRICA. FAMILY HISTORY: The patient is unaware of her family history as she was adopted. SOCIAL HISTORY: The patient is a former smoker smoking 1 to 2 packs a day for approximately 39 years. She reports quitting approximately a month ago. The patient occasionally drinks alcoholic beverages. The patient denies recreational drug use. The patient is unemployed. She is , but currently resides at [facility] for rehabilitation. The patient's , Richard Norwood, will be her surrogate decision maker in the event that she is unable to make decision for herself. REVIEW OF SYSTEMS: I performed a 14-point review of systems. All the pertinent positives and negatives are mentioned in the history of present illness. The remaining review of systems are negative. PHYSICAL EXAMINATION GENERAL APPEARANCE: The patient is chronically ill appearing. She is cachectic. VITAL SIGNS: Temperature 96.7, heart rate 120, respiratory rate 22, O2 sat 92% on 10 L via nasal cannula, blood pressure 98/54. HEENT: Normocephalic, atraumatic. Pupils are equal and reactive to light. Extraocular movements are intact. RESPIRATORY: Lungs are diminished with wheezing bilateral. The patient declined auscultation of her posterior lung [place]عر[place] and the assessment was performed anteriorly only. CARDIOVASCULAR: Regular rate and rhythm. Tachycardic. S1 and S2 present. There are no murmurs, rubs, or gallops heard. ABDOMEN: Soft, nontender, nondistended. There are bowel sounds present. EXTREMITIES: There is no lower extremity edema. DP and PT pulses are 2+ and symmetric. MUSCULOSKELETAL: There is no clubbing or cyanosis noted. NEUROLOGIC: The patient is alert and oriented x3. SKIN: The patient has multiple healing areas that appeared to be skin tears on her arms and legs. She also has multiple areas of ecchymosis throughout her skin. She does appear to have mottling to her lower extremities. The patient has a large skin tear to her right forearm. Her right heel has a scab in addition to a healing area to the top of her right foot. DIAGNOSTIC STUDIES/LABORATORY DATA: Sodium 127, potassium 4.5, chloride 81, CO2 43, BUN 15, creatinine 0.32, glucose 57. White blood cell count 10.0, hemoglobin 13.5, hematocrit 40, platelet count 226. CRP is 483.76. Troponin 0.06. BNP 362, lactic acid 1.1. EKG from today shows sinus tachycardia with a rate of 111. This EKG is similar to her previous EKG from 11/04/16. Chest x-ray from today: Radiologist's impression: Right basilar infiltrate consistent with a right basilar pneumonia. ASSESSMENT AND PLAN: Ms. Norwood is a 56-year-old female with a complex medical history who presented to the emergency room with complaints of shortness of breath. She will be admitted as an inpatient for sepsis secondary to pneumonia and acute on chronic hypercapnia and respiratory failure. 1. Sepsis secondary to pneumonia: Suspect that this is health-care acquired pneumonia. The patient received a liter of normal saline in the emergency room. She will receive another liter of normal saline. The patient is meeting systemic inflammatory response syndrome criteria with tachycardia, tachypnea, and a temperature of 96.7. The patient is meeting qSOFA criteria with hypotension and tachypnea. Her blood pressures had been in the 90s in addition to tachypnea with respiratory rates 22 to 27. The patient will be started on cefepime and vancomycin. We will place her on Solu-Medrol. 2. Acute on chronic hypercapnia and hypoxic respiratory failure: We will attempt to place the patient on Vapotherm. At this time, the patient is declining BiPAP or intubation. 3. Elevated troponins: The patient's troponin is slightly elevated at 0.06. The patient denies any chest pain. We will monitor her on telemetry and trend her troponins. I suspect this is demand ischemia. 4. Hyponatremia: We will give the patient some normal saline and recheck her labs in the morning. 5. Diabetes mellitus: The patient has been hypoglycemic today. We will continue to check her glucose a.c. and h.s. For now, we will hold her Lantus and insulin coverage. We will consider restarting lispro sliding scale if her glucoses elevate. The patient was given dextrose in the emergency room for a glucose of 57. 6. Anxiety and depression: We will continue the patient's home Xanax and Zoloft. 7. Chronic pain: We will continue the patient on her home methadone and Hampshire as needed. 8. Hypertension: At this time, the patient is hypotensive. We will hold her lisinopril and continue her metoprolol tartrate with hold parameters. 9. History of congestive heart failure: At this point, the patient appears to be on the dry side. I am going to give her some gentle hydration. We will monitor her and give her Lasix as needed. 10. Adrenal insufficiency: We are going to switch the patient to Solu-Medrol for now. 11. History of pulmonary embolism: The patient will be subcu heparin. 12. Fluids, electrolytes, and nutrition: The patient will receive normal saline at 100 mL for 1 L. At this time, we will make the patient n.p.o. except for meds due to concern for possible aspiration. 13. DVT prophylaxis: The patient is at highest risk. She will have subcu heparin. 14. Code status: At this time, the patient wishes to be a full code with do not intubate. We will attempt to discuss with the patient later today concerning DNR/DNI. 15. Disposition: Inpatient. TIME SPENT: Time for this admission was 75 minutes and 45 minutes were spent with the patient and discussing medications, past medical history, and the events leading up to their arrival today and performing a physical examination. The case has been reviewed with the attending, Dr. Bae, who agrees with the plan of care. Reviewed by FRED ORTIZ-Jori 11/18/16 1033 ADDENDUM: Julia Norwood is a 56-year-old female with history of end-stage COPD who was just recently hospitalized at our facility and discharged on 11/11/16. The patient is malnourished at baseline with a BMI of 15. She presented with right lower lobe pneumonia which at this point is healthcare-acquired. She is in acute respiratory distress and chronic respiratory failure. She is going to be admitted to the intensive care unit on high-flow oxygen treatment. She is going to be treated with broad-spectrum antibiotics and steroids for COPD exacerbation. The prognosis is very guarded. The patient used to be do not resuscitate which was rescinded today. Currently, she is considering do not resuscitate again. For the time being, she is full code. For further details of the patient's presentation and plan, please see history and physical dictated by Tali Platt NP, on 11/17/16 with which I agree. LISS BAE MD CC: Dr. Lisa Jules* [id number]/CPS #: [id number]/[id number] #: [id number] DEVYN
--- NOTE | 2016-11-17 21:42 | HP ---
HISTORY AND PHYSICAL: ADDENDUM: Julia Norwood is a 56-year-old female with history of end-stage COPD who was just recently hospitalized at our facility and discharged on . The patient is malnourished at baseline with a BMI of 15. She presented with right lower lobe pneumonia which at this point is healthcare-acquired. She is in acute respiratory distress and chronic respiratory failure. She is going to be admitted to the intensive care unit on high-flow oxygen treatment. She is going to be treated with broad-spectrum antibiotics and steroids for COPD exacerbation. The prognosis is very guarded. The patient used to be do not resuscitate which today. Currently, she is considering do not resuscitate again. For the time being, she is full code. For further details of the patient's presentation and plan, please see history and physical dictated by Tali Andrews NP, on 11/17/16 with which I agree. [id number]/CPS #: [id number] MTDAlberta
[2016-11-17] MEDS: Heparin VIAL(*) 5000 UNITS/ML VIAL (FIVE THOUSAND) SUBCUT SCH (22:02)
[2016-11-17] MEDS: Metoprolol Tartrate TAB* 25 MG PO SCH ×2 (22:02→22:58)
[2016-11-17] MEDS: HYDROcodone/ACETAMIN 5-325 MG* 1 TAB PO PRN (23:01)
[2016-11-18] MEDS ORDERED: traMADol TAB* 50 MG ONE (00:35)
[2016-11-18] MEDS ORDERED: traMADol TAB* 50 MG PO PRN (00:51)
[2016-11-18] MEDS: Albuterol/Ipratropium NEB.SOL* Albuterol 2.5 MG/Ipratropium 0.5 MG 3 ML INH SCH ×3 (01:50→15:48)
[2016-11-18] MEDS: Cefepime(*) 1 GM in NS 0.9% 50 ML* 50 ML IVPB SCH ×2 (03:11→16:10)
[2016-11-18] MEDS: HYDROcodone/ACETAMIN 5-325 MG* 1 TAB PO PRN ×2 (03:11→12:01)
[2016-11-18] MEDS ORDERED: Vancomycin(*) 500 MG in NS 0.9% 250 ML* 250 ML IVPB SCH (04:00)
[2016-11-18 04:07] LABS: BUN/Creatinine Ratio 40.9 (8-20); Calcium 9.7 mg/dL (8.6-10.3); EGFR African American 426.4 (>60); EGFR Non-African American 331.6 (>60); Potassium 4.7 mmol/L (3.5-5.0)
[2016-11-18 04:10] LABS: Hematocrit 40 % (35-47); Hemoglobin 13.4 g/dl (12.0-16.0); Mean Corpuscular HGB Conc 33 g/dl (31-36); Mean Corpuscular Hemoglobin 31 pg (27-31); Mean Corpuscular Volume 93 fL (80-97); Mean Platelet Volume 8 um3 (7.4-10.4); Red Blood Count 4.32 10^6/ul (4.0-5.4); Red Cell Distribution Width 15 % (10.5-15); Troponin I 0.05 ng/mL (<0.04); White Blood Count 10.2 10^3/ul (3.5-10.8)
[2016-11-18 04:11] LABS: Add Diff/Slide Review? Slide Review Added; Comments Flag Yes
[2016-11-18] MEDS: Heparin VIAL(*) 5000 UNITS/ML VIAL (FIVE THOUSAND) SUBCUT SCH ×3 (06:17→21:18)
[2016-11-18] MEDS ORDERED: Mometasone/Formoter 100/5 MDI INH SCH (09:00)
[2016-11-18] MEDS: methylPREDNISolone 125 MG* 2 ML VIAL IV SCH ×2 (10:04→21:19)
[2016-11-18] MEDS: Methadone TAB* 5 MG PO SCH ×3 (10:05→21:17)
[2016-11-18] MEDS: Metoprolol Tartrate TAB* 25 MG PO SCH ×3 (10:05→21:30)
[2016-11-18] MEDS: Pantoprazole IV* 40 MG IV SCH (10:20)
[2016-11-18] MEDS: Sertraline* 25 MG TAB PO SCH ×2 (10:26→12:00)
[2016-11-18] MEDS: ALPRAZolam TAB* 0.25 MG PO PRN (11:57)
--- NOTE | 2016-11-18 13:12 | PN ---
Progress Note - Progress Note Note: CRITICAL CARE MEDICINE Date: 11/18/16 Time: 830 SUBJECTIVE: Patient seen and examined. PHYSICAL EXAM: chronically ill and disheveled Vital Signs: Reviewed. Neurologic: sleepy; less distress when restful HEENT: Trachea midline. Cardiovascular: distant, S1 S2 less tachy Respiratory: poor prolonged exhalation but better; short inhalation. Abdomen: Soft. Extremities: chronic changes LABS: Reviewed. IMAGING: Reviewed. MEDICATIONS: Reviewed. ASSESSMENT: 56 F Acute on chronic hypoxic and hypercarbic resp failure End stage copd resp failure with acute exacerbation and RLL pna, Gram negative sepsis from pna Hypoxic encephalopathy, more acute on chronic cachexia non-adherence anxiety disorder PLAN: Neurologic: allow her to remain comfortable as able but retain capacity. Will re -address needs as morning progresses. Cardiovascular: Perfusing. Avoiding fluid overload and off ivf. Hr as well as can be expected. on her bb Respiratory: can likely wean off rescue HFo2 today. Allow her to support her coaching and ventilation. Refuses bipap and intubation. copd adjunctives. Gastrointestinal: will discuss ability to protect airway and have po today. Renal/Metabolic: f/u uout and lyte balance Infectious Disease: on cefepime, can dc vanco, await species. Hematology: stable. hsq Endocrine: on steroids. bg ok, dc accucheck Musculoskeletal: weak and skin breakdown chronic. see how she can cooperate to advance. Psych/Social: needs palliation. consult today Supportive and preventative care as ordered. SUP: ppi VTE prophylaxis: heparin Rojo catheter given critical illness, monitoring needs for accurate assessment of SAVANNA and KDIGO criteria for critically ill patients and to avoid potential harms of urinary retention, skin breakdown/ulcers. Disposition: ICU currently Code Status: palliative to discuss dnr Critical Care Time: 25min Trinidad Thayer DO
[2016-11-18] MEDS ORDERED: Albuterol 2.5 MG/3 ML NEB.SOL* (0.083%) INH PRN (16:38)
[2016-11-18] MEDS ORDERED: Vancomycin Trough Check NOTE FOLLOW UP ONE (19:30)
--- NOTE | 2016-11-18 20:26 | CONS ---
PALLIATIVE CARE CONSULT: DATE OF CONSULT: 11/18/16 PRIMARY CARE PROVIDER: Lisa Jules MD REQUESTING PHYSICIAN FOR PALLIATIVE CARE CONSULT: Dr. Thayer. HOSPITAL COURSE: This is a 56-year-old female with past medical history of end - stage COPD, on chronic oxygen and high-dose chronic prednisone, who was recently discharged for COPD exacerbation on the at that time. During that hospital course, she had a Palliative Care consultation and she is eligible for hospice but at that time, she had made a decision to do rehab at [facility] and if she did not do well there, then she would enrol in hospice. The patient is confused, lethargic at this time and the , Scott, provides most of the history, states that she was doing well at [facility] and had just done physical therapy a few days ago when she became acutely ill and was brought to the emergency room and was admitted yesterday on the for acute respiratory failure secondary to pneumonia and COPD exacerbation. The patient was admitted to the ICU on Vapotherm. She initially rescinded her DNR/DNI but then decided that she wanted to be a DNI, but she wanted CPR. The patient has been weaned off to Vapotherm and is now on Salter at 10 L, but still remains encephalopathic from her hypoxia and still with increased work of breathing. On my encounter, the patient states she is anxious. She has neck pain. She feels that she is dying. I asked her about her code status and CPR and she does not want CPR, she does not want to be intubated. She was very clear with this; however, she became very repetitive in her request for being moved, repositioned, and seemingly uncomfortable. I spoke with Scott outside of the room, her , and he realized how critically ill she is and he agrees that she does not want to be intubated or resuscitated and he is concerned about the gravity of the situation. The patient states that she is interested in drinking , but we discussed that because she is full CPR that it is not safe for her to have anything to eat or drink and she agrees to be a DNR. Otherwise, remaining review of systems is negative. PAST MEDICAL HISTORY: 1. End-stage COPD, on chronic oxygen and 6 mg of prednisone daily for several years. 2. Chronic pain. 3. Anxiety and depression. 4. History of congestive heart failure with reduced ejection fraction. 5. Steroid-induced diabetes. 6. Hypertension. 7. History of pulmonary embolism. 8. History of adrenal insufficiency. Recent admission from November 04 to November 17 for COPD exacerbation, discharged to [facility]. INPATIENT MEDICATIONS: 1. Alprazolam 0.125 mg every 8 hours as needed for anxiety, 0.125 mg at bedtime. 2. DuoNeb 1 neb q.6 hours. 3. Hydrocodone and acetaminophen 1 tab every 4 hours as needed. 4. Heparin 5000 units subcu t.i.d. 5. Cefepime 1 g q.12. 6. Methadone 5 mg p.o. b.i.d. 7. Metoprolol 25 mg p.o. b.i.d. 8. Mometasone/formoterol 2 puffs inhaled in the morning. 9. Pantoprazole 40 mg IV q.24 hours. 10. Zoloft 12.5 mg in the morning. 11. Methylprednisolone 60 mg q.12. 12. Tramadol 50 mg q.6 hours as needed. ALLERGIES: MORPHINE, PENICILLIN, and PREGABALIN. FAMILY HISTORY: The patient is adopted. SOCIAL HISTORY: As of a few weeks ago, the patient was living at home with her but the was having a challenging time taking care of her and her ADLs. She was just recently [facility]. She has been a heavy smoker for the past 20 years. She did quit smoking about 3 months ago but has smoked intermittently throughout the past 3 months. Her healthcare proxy is her , Scott. She was drinking up to about 2 to 3 glasses of beer or wine per day up until about 3 months ago. The MOLST form as it stands is CPR and DNI. REVIEW OF SYSTEMS: As mentioned in the HPI. PHYSICAL EXAM: Vitals: Temp 97.5, pulse rate 117, respiratory rate 29, oxygen saturation 93% on 10 L, blood pressure 122/55. General: The patient in mild-to - moderate respiratory distress, cachectic, frail, ill-appearing with her at the bedside. HEENT: Neck is supple. Oropharynx: Mucous membranes are dry. Poor dentition. Pupils are equal, reactive, and anicteric. Head: Normocephalic. Neck is supple, no lymphadenopathy. Cardiac: Tachycardia. Regular rate and rhythm. Soft systolic murmur. Respiratory: Poor aeration with rhonchorous breath sounds in the right lower lobe. No wheezes are appreciated. Abdomen: Hypoactive bowel sounds, soft to mild distention. No tenderness. Extremities: The patient with mottled ecchymotic cachectic lower extremities with distant pulses. Extremities are cool. Neurologic: The patient is alert and oriented x2, oriented to self and place. She is not entirely clear on her interaction with repeating request. There is a question of her capacity with the current interaction. DIAGNOSTIC STUDIES/LAB DATA: White count 10.2, hemoglobin 13.4, hematocrit 40, platelets 217. Sodium 127, potassium 4.7, chloride 86, bicarb 37, BUN 9, creatinine 0.22. Troponin is 0.05. Albumin on admission is 2.9. Urine shows pyuria. Influenza negative. Chest x-ray on admission shows right basilar infiltrate consistent with right basilar pneumonia. ASSESSMENT AND PLAN: This is a 56-year-old female with end-stage chronic obstructive pulmonary disease, who presented to the emergency room with acute respiratory failure from [facility], found to have a right pneumonia, admitted to the ICU in critical condition. The patient has been followed by hospice services in [place] when she was there last month and refused hospice at that time. She is aware of her end-stage chronic obstructive pulmonary disease. On her last admission a few weeks ago, she wanted to give rehab a try. If she was not successful, then she would agree to enroll in hospice. Unfortunately, the patient has hypoxic encephalopathy and is not entirely clear on her wishes. She is able to tell me that she does not want to be resuscitated or intubated and her is agreeable to this. We discussed our goal is keeping her comfortable and trying to help support her through this pneumonia as best we can without CPR. At this time, we are going to address her anxiety and her pain and update her MOLST to a DNR/DNI and allow her to eat and drink, which she prefers. The is agreeable to this. I spoke with Dr. Thayer as well. Thank you for this consultation. I will follow along with you. PATIENT TIME: Greater than 90 minutes spent doing this consultation, more than half the time spent in direct patient contact. CC: Lisa Jules MD* [id number]/[facility] #: [id number] MTDD
[2016-11-18] MEDS: ALPRAZolam TAB* 0.25 MG PO SCH (21:18)
[2016-11-19] MEDS: Cefepime(*) 1 GM in NS 0.9% 50 ML* 50 ML IVPB SCH (04:30)
[2016-11-19] MEDS: Heparin VIAL(*) 5000 UNITS/ML VIAL (FIVE THOUSAND) SUBCUT SCH (05:57)
[2016-11-19] MEDS: Pantoprazole IV* 40 MG IV SCH (08:14)
[2016-11-19] MEDS: methylPREDNISolone 125 MG* 2 ML VIAL IV SCH ×2 (08:14→20:23)
[2016-11-19] MEDS: Metoprolol Tartrate TAB* 25 MG PO SCH (08:14)
[2016-11-19] MEDS: Methadone TAB* 5 MG PO SCH ×2 (08:15→20:10)
[2016-11-19] MEDS: Sertraline* 25 MG TAB PO SCH (08:15)
--- NOTE | 2016-11-19 13:56 | PN ---
Progress Note - Progress Note Note: Palliative Care Follow up Note: Patient lethargic and minimally arousable. Suspect hypercapnic respiratory failure on top of her hypoxic respiratory failure. Patient is able to deny any pain or SOB. But really unable to open her eyes or follow any commands. Spoke with HCP, , Scott and son regarding poor prognosis. Family would like comfort care only. Discussed comfort measures only. Discussed poor prognosis and would not recommend transfer as patient may pass within the next 24 hours. Did order IV dilaudid prn as patient is allergic to morphine.
--- NOTE | 2016-11-19 14:29 | PN ---
Subjective Date of Service: 11/19/16 Interval History: Patient seen this morning and again in the afternoon. She reported no complaints. Declined physical exam. Later in the day she was more lethargic. Spoke with and Dr. Wilson regarding plans/prognosis. Family History: Unchanged from Admission Social History: Unchanged from Admission Past Medical History: Unchanged from Admission Objective Active Medications: Hydrocodone Bitart/Acetaminophen ([place] 5-325 Tab*) 1 tab PO Q4H PRN PRN Reason: PAIN Last Admin: 11/18/16 12:01 Dose: 1 tab Albuterol (Ventolin 2.5 Mg/3 Ml Neb.Myra*) 2.5 mg INH Q4H PRN PRN Reason: SOB/WHEEZING Alprazolam (Xanax Tab*) 0.125 mg PO BEDTIME YANELY Last Admin: 11/18/16 21:18 Dose: 0.125 mg Alprazolam (Xanax Tab*) 0.125 mg PO Q8H PRN PRN Reason: ANXIETY Last Admin: 11/18/16 11:57 Dose: 0.125 mg Hydromorphone HCl (Dilaudid Iv*) 0.5 mg IV SLOW PU Q2HR PRN PRN Reason: SOB/WHEEZING Methadone HCl (Dolophine Tab*) 5 mg PO BID [facility] Last Admin: 11/19/16 08:15 Dose: 5 mg Methylprednisolone Sodium Succinate (Solu-Medrol*) 60 mg IV Q12H [facility] Last Admin: 11/19/16 08:14 Dose: 60 mg Vital Signs 11/18/16 11/18/16 11/18/16 15:14 16:39 20:00 Temperature 97.2 F Pulse Rate 113 Respiratory 18 16 Rate Blood Pressure 129/60 (mmHg) O2 Sat by Pulse 100 97 Oximetry 11/18/16 11/18/16 11/18/16 21:17 21:18 22:58 Temperature Pulse Rate 114 Respiratory 16 16 16 Rate Blood Pressure 143/70 (mmHg) O2 Sat by Pulse 99 Oximetry 11/19/16 11/19/16 11/19/16 06:02 07:46 08:00 Temperature 97.7 F Pulse Rate 116 122 Respiratory 16 20 Rate Blood Pressure 148/104 (mmHg) O2 Sat by Pulse 93 98 Oximetry 11/19/16 11/19/16 11/19/16 08:15 10:15 10:52 Temperature Pulse Rate 98 Respiratory 20 16 22 Rate Blood Pressure (mmHg) O2 Sat by Pulse 95 Oximetry Oxygen Devices in Use Now: Nasal Cannula Appearance: Middle-aged, F, appears older than stated age, laying in bed in NAD Result Diagrams: 11/18/16 03:35 11/18/16 03:35 Additional Lab and Data: Lab Results 11/17/16 11/17/16 11/17/16 Range/Units 12:30 12:30 12:30 WBC 10.0 (3.5-10.8) 10^3/ul RBC 4.35 (4.0-5.4) 10^6/ul Hgb 13.5 (12.0-16.0) g/dl Hct 40 (35-47) % MCV 92 (80-97) fL MCH 31 (27-31) pg MCHC 34 (31-36) g/dl RDW 14 (10.5-15) % Plt Count 226 (150-450) 10^3/ul MPV 8 (7.4-10.4) um3 Immature Gran % (Auto) 22 H (0-9) % Neut % (Auto) 89.3 H (38-83) % Lymph % (Auto) 7.3 L (25-47) % [place] % (Auto) 2.9 (1-9) % Eos % (Auto) 0 (0-6) % Baso % (Auto) 0.5 (0-2) % Absolute Neuts (auto) 9.0 H (1.5-7.7) 10^3/ul Absolute Lymphs (auto) 0.7 L (1.0-4.8) 10^3/ul Absolute Monos (auto) 0.3 (0-0.8) 10^3/ul Absolute Eos (auto) 0 (0-0.6) 10^3/ul Absolute Basos (auto) 0.1 (0-0.2) 10^3/ul Absolute Nucleated RBC 0 10^3/ul Neutrophils % 64 (38-83) % Band Neutrophils % 21 H (0-8) % Lymphocytes % 10 L (25-47) % Reactive Lymphs % 1 (0-6) % Monocytes % 3 (0-13) % Metamyelocytes % 1 (0-2) % Nucleated RBC % 0 Normal RBC Morphology Normal (Normal) Sodium 127 L (133-145) mmol/L Potassium 4.5 (3.5-5.0) mmol/L Chloride 81 L (101-111) mmol/L Carbon Dioxide 43 H* (22-32) mmol/L Anion Gap 3 (2-11) mmol/L BUN 15 (6-24) mg/dL Creatinine 0.32 L (0.51-0.95) mg/dL Est GFR ( Amer) 276.7 (>60) Est GFR (Non-Af Amer) 215.2 (>60) BUN/Creatinine Ratio 46.9 H (8-20) Glucose 57 L (70-100) mg/dL Lactic Acid 1.1 (0.5-2.0) mmol/L Calcium 10.0 (8.6-10.3) mg/dL Total Bilirubin 0.50 (0.2-1.0) mg/dL AST 28 (13-39) U/L ALT 30 (7-52) U/L Alkaline Phosphatase 88 (34-104) U/L Troponin I 0.06 H* (<0.04) ng/mL C-Reactive Protein 483.76 H (< 5.00) mg/L B-Natriuretic Peptide ( - 100) pg/mL Total Protein 6.0 L (6.4-8.9) g/dL Albumin 2.9 L (3.2-5.2) g/dL Globulin 3.1 (2-4) g/dL Albumin/Globulin Ratio 0.9 L (1-3) 11/17/16 Range/Units 12:30 WBC (3.5-10.8) 10^3/ul RBC (4.0-5.4) 10^6/ul Hgb (12.0-16.0) g/dl Hct (35-47) % MCV (80-97) fL MCH (27-31) pg MCHC (31-36) g/dl RDW (10.5-15) % Plt Count (150-450) 10^3/ul MPV (7.4-10.4) um3 Immature Gran % (Auto) (0-9) % Neut % (Auto) (38-83) % Lymph % (Auto) (25-47) % [place] % (Auto) (1-9) % Eos % (Auto) (0-6) % Baso % (Auto) (0-2) % Absolute Neuts (auto) (1.5-7.7) 10^3/ul Absolute Lymphs (auto) (1.0-4.8) 10^3/ul Absolute Monos (auto) (0-0.8) 10^3/ul Absolute Eos (auto) (0-0.6) 10^3/ul Absolute Basos (auto) (0-0.2) 10^3/ul Absolute Nucleated RBC 10^3/ul Neutrophils % (38-83) % Band Neutrophils % (0-8) % Lymphocytes % (25-47) % Reactive Lymphs % (0-6) % Monocytes % (0-13) % Metamyelocytes % (0-2) % Nucleated RBC % Normal RBC Morphology (Normal) Sodium (133-145) mmol/L Potassium (3.5-5.0) mmol/L Chloride (101-111) mmol/L Carbon Dioxide (22-32) mmol/L Anion Gap (2-11) mmol/L BUN (6-24) mg/dL Creatinine (0.51-0.95) mg/dL Est GFR ( Amer) (>60) Est GFR (Non-Af Amer) (>60) BUN/Creatinine Ratio (8-20) Glucose (70-100) mg/dL Lactic Acid (0.5-2.0) mmol/L Calcium (8.6-10.3) mg/dL Total Bilirubin (0.2-1.0) mg/dL AST (13-39) U/L ALT (7-52) U/L Alkaline Phosphatase (34-104) U/L Troponin I (<0.04) ng/mL C-Reactive Protein (< 5.00) mg/L B-Natriuretic Peptide 362 H ( - 100) pg/mL Total Protein (6.4-8.9) g/dL Albumin (3.2-5.2) g/dL Globulin (2-4) g/dL Albumin/Globulin Ratio (1-3) Microbiology and Other Data: Microbiology 11/17/16 20:37 Legionella Urinary Antigen - Final Urine Negative Legionella Streptococcus pneumoniae Ag Screen - Final Negative S. pneumo Antigen 11/17/16 20:37 Influenza Types A,B Antigen (MARKUS) - Final Nasal Specimen received for Influenza A/B Molecular testing 11/17/16 15:05 Nasal Screen MRSA (PCR)([facility]US) - Final Nasal Mrsa Negative Assess/Plan/Problems-Billing Assessment: Pseudomonas bacteremia, PNA, acute hypoxic respiratory failure in a 56 yo F with hx of end stage COPD - Patient Problems (1) Comfort measures only status Current Visit: Yes Comment: Appreciate Palliative Care assistance. Plan for comfort measures only. Continue methadone, BZD, prn IV dilaudid. Prognosis likely hours-days.
[2016-11-19] MEDS: HYDROmorphone INJ* 1 MG/ML CARPUJECT SYRINGE IV SLOW PU PRN (20:07)
[2016-11-19] MEDS: ALPRAZolam TAB* 0.25 MG PO SCH (20:23)
[2016-11-20] MEDS: methylPREDNISolone 125 MG* 2 ML VIAL IV SCH ×2 (07:19→22:06)
[2016-11-20] MEDS: Methadone TAB* 5 MG PO SCH ×2 (07:19→21:41)
[2016-11-20 08:29] VITALS: BP 168/83
--- NOTE | 2016-11-20 10:22 | PN ---
Subjective Date of Service: 11/20/16 Interval History: Patient seen this morning with brother and at bedside. Patient is slightly tachypneic but seems comfortable. When asked if she is SOB or in pain she shakes her head no. Family feels she is comfortable. Family History: Unchanged from Admission Social History: Unchanged from Admission Past Medical History: Unchanged from Admission Objective Active Medications: Hydrocodone Bitart/Acetaminophen ([place] 5-325 Tab*) 1 tab PO Q4H PRN Albuterol (Ventolin 2.5 Mg/3 Ml Neb.Myra*) 2.5 mg INH Q4H PRN Alprazolam (Xanax Tab*) 0.125 mg PO BEDTIME YANELY Alprazolam (Xanax Tab*) 0.125 mg PO Q8H PRN Hydromorphone HCl (Dilaudid Iv*) 0.5 mg IV SLOW PU Q2HR PRN Methadone HCl (Dolophine Tab*) 5 mg PO BID YANELY Methylprednisolone Sodium Succinate (Solu-Medrol*) 60 mg IV Q12H YANELY Vital Signs 11/19/16 11/19/16 11/19/16 10:52 20:00 20:07 Temperature Pulse Rate 98 95 Respiratory 22 20 22 Rate Blood Pressure (mmHg) O2 Sat by Pulse 95 95 Oximetry 11/19/16 11/19/16 11/19/16 20:10 20:23 20:30 Temperature Pulse Rate Respiratory 22 22 20 Rate Blood Pressure (mmHg) O2 Sat by Pulse Oximetry 11/19/16 11/19/16 11/19/16 21:07 22:10 22:23 Temperature Pulse Rate Respiratory 20 20 20 Rate Blood Pressure (mmHg) O2 Sat by Pulse Oximetry 11/20/16 11/20/16 07:19 07:25 Temperature 97.7 F Pulse Rate 133 Respiratory 20 20 Rate Blood Pressure 168/83 (mmHg) O2 Sat by Pulse 98 Oximetry Oxygen Devices in Use Now: Nasal Cannula Appearance: Middle-aged, F, laying in bed, slight tachypnea Eyes: No Scleral Icterus Respiratory: - - Lungs clear in anterior [place] Cardiovascular: - - Tachycardia Result Diagrams: 11/18/16 03:35 11/18/16 03:35 Additional Lab and Data: Lab Results 11/17/16 11/17/16 11/17/16 Range/Units 12:30 12:30 12:30 WBC 10.0 (3.5-10.8) 10^3/ul RBC 4.35 (4.0-5.4) 10^6/ul Hgb 13.5 (12.0-16.0) g/dl Hct 40 (35-47) % MCV 92 (80-97) fL MCH 31 (27-31) pg MCHC 34 (31-36) g/dl RDW 14 (10.5-15) % Plt Count 226 (150-450) 10^3/ul MPV 8 (7.4-10.4) um3 Immature Gran % (Auto) 22 H (0-9) % Neut % (Auto) 89.3 H (38-83) % Lymph % (Auto) 7.3 L (25-47) % [place] % (Auto) 2.9 (1-9) % Eos % (Auto) 0 (0-6) % Baso % (Auto) 0.5 (0-2) % Absolute Neuts (auto) 9.0 H (1.5-7.7) 10^3/ul Absolute Lymphs (auto) 0.7 L (1.0-4.8) 10^3/ul Absolute Monos (auto) 0.3 (0-0.8) 10^3/ul Absolute Eos (auto) 0 (0-0.6) 10^3/ul Absolute Basos (auto) 0.1 (0-0.2) 10^3/ul Absolute Nucleated RBC 0 10^3/ul Neutrophils % 64 (38-83) % Band Neutrophils % 21 H (0-8) % Lymphocytes % 10 L (25-47) % Reactive Lymphs % 1 (0-6) % Monocytes % 3 (0-13) % Metamyelocytes % 1 (0-2) % Nucleated RBC % 0 Normal RBC Morphology Normal (Normal) Sodium 127 L (133-145) mmol/L Potassium 4.5 (3.5-5.0) mmol/L Chloride 81 L (101-111) mmol/L Carbon Dioxide 43 H* (22-32) mmol/L Anion Gap 3 (2-11) mmol/L BUN 15 (6-24) mg/dL Creatinine 0.32 L (0.51-0.95) mg/dL Est GFR ( Amer) 276.7 (>60) Est GFR (Non-Af Amer) 215.2 (>60) BUN/Creatinine Ratio 46.9 H (8-20) Glucose 57 L (70-100) mg/dL Lactic Acid 1.1 (0.5-2.0) mmol/L Calcium 10.0 (8.6-10.3) mg/dL Total Bilirubin 0.50 (0.2-1.0) mg/dL AST 28 (13-39) U/L ALT 30 (7-52) U/L Alkaline Phosphatase 88 (34-104) U/L Troponin I 0.06 H* (<0.04) ng/mL C-Reactive Protein 483.76 H (< 5.00) mg/L B-Natriuretic Peptide ( - 100) pg/mL Total Protein 6.0 L (6.4-8.9) g/dL Albumin 2.9 L (3.2-5.2) g/dL Globulin 3.1 (2-4) g/dL Albumin/Globulin Ratio 0.9 L (1-3) 11/17/16 Range/Units 12:30 WBC (3.5-10.8) 10^3/ul RBC (4.0-5.4) 10^6/ul Hgb (12.0-16.0) g/dl Hct (35-47) % MCV (80-97) fL MCH (27-31) pg MCHC (31-36) g/dl RDW (10.5-15) % Plt Count (150-450) 10^3/ul MPV (7.4-10.4) um3 Immature Gran % (Auto) (0-9) % Neut % (Auto) (38-83) % Lymph % (Auto) (25-47) % [place] % (Auto) (1-9) % Eos % (Auto) (0-6) % Baso % (Auto) (0-2) % Absolute Neuts (auto) (1.5-7.7) 10^3/ul Absolute Lymphs (auto) (1.0-4.8) 10^3/ul Absolute Monos (auto) (0-0.8) 10^3/ul Absolute Eos (auto) (0-0.6) 10^3/ul Absolute Basos (auto) (0-0.2) 10^3/ul Absolute Nucleated RBC 10^3/ul Neutrophils % (38-83) % Band Neutrophils % (0-8) % Lymphocytes % (25-47) % Reactive Lymphs % (0-6) % Monocytes % (0-13) % Metamyelocytes % (0-2) % Nucleated RBC % Normal RBC Morphology (Normal) Sodium (133-145) mmol/L Potassium (3.5-5.0) mmol/L Chloride (101-111) mmol/L Carbon Dioxide (22-32) mmol/L Anion Gap (2-11) mmol/L BUN (6-24) mg/dL Creatinine (0.51-0.95) mg/dL Est GFR ( Amer) (>60) Est GFR (Non-Af Amer) (>60) BUN/Creatinine Ratio (8-20) Glucose (70-100) mg/dL Lactic Acid (0.5-2.0) mmol/L Calcium (8.6-10.3) mg/dL Total Bilirubin (0.2-1.0) mg/dL AST (13-39) U/L ALT (7-52) U/L Alkaline Phosphatase (34-104) U/L Troponin I (<0.04) ng/mL C-Reactive Protein (< 5.00) mg/L B-Natriuretic Peptide 362 H ( - 100) pg/mL Total Protein (6.4-8.9) g/dL Albumin (3.2-5.2) g/dL Globulin (2-4) g/dL Albumin/Globulin Ratio (1-3) Microbiology and Other Data: Microbiology 11/17/16 20:37 Legionella Urinary Antigen - Final Urine Negative Legionella Streptococcus pneumoniae Ag Screen - Final Negative S. pneumo Antigen 11/17/16 20:37 Influenza Types A,B Antigen (MARKUS) - Final Nasal Specimen received for Influenza A/B Molecular testing 11/17/16 15:05 Nasal Screen MRSA (PCR)([facility]) - Final Nasal Mrsa Negative Assess/Plan/Problems-Billing Assessment: Pseudomonas bacteremia, PNA, acute hypoxic respiratory failure in a 56 yo F with hx of end stage COPD - Patient Problems (1) Comfort measures only status Current Visit: Yes Comment: Appreciate Palliative Care assistance. Plan for comfort measures only. Continue methadone, IV steroids, BZD, prn IV dilaudid. Prognosis likely hours-days.
[2016-11-20] MEDS: HYDROmorphone INJ* 1 MG/ML CARPUJECT SYRINGE IV SLOW PU PRN (15:42)
--- NOTE | 2016-11-20 16:07 | PN ---
Progress Note - Progress Note Note: Palliative care follow up note. Patient remains minimally responsive. and patient's brother are at the bedside. COncerned that she may be in pain but they aren't sure. Patient encephalopathy with hypercapnic and hypoxic respiratory failure. Grim prognosis.
[2016-11-20] MEDS ORDERED: Morphine ORAL.SOLN 10 mg* 2 MG/ML UDC 5 ml PO PRN (16:26)
[2016-11-20] MEDS: ALPRAZolam TAB* 0.25 MG PO SCH (21:40)
[2016-11-21] MEDS: HYDROmorphone INJ* 1 MG/ML CARPUJECT SYRINGE IV SLOW PU PRN (07:42)
[2016-11-21] MEDS: methylPREDNISolone 125 MG* 2 ML VIAL IV SCH ×2 (07:44→20:40)
[2016-11-21] MEDS ORDERED: Morphine INJ* 2 MG/ML 1 ML CARPUJECT IV ONE (08:42)
--- NOTE | 2016-11-21 08:45 | PN ---
Subjective Date of Service: 11/21/16 Interval History: Seen at bedside. No family present. last IV dilaudid about 1 hour prior. Pt lethargic and using accessory muscles of respiration. Unable to interact meaningfully Family History: Unchanged from Admission Social History: Unchanged from Admission Past Medical History: Unchanged from Admission Objective Active Medications: Hydrocodone Bitart/Acetaminophen ([place] 5-325 Tab*) 1 tab PO Q4H PRN PRN Reason: PAIN Last Admin: 11/18/16 12:01 Dose: 1 tab Albuterol (Ventolin 2.5 Mg/3 Ml Neb.Myra*) 2.5 mg INH Q4H PRN PRN Reason: SOB/WHEEZING Alprazolam (Xanax Tab*) 0.125 mg PO BEDTIME YANELY Last Admin: 11/20/16 21:40 Dose: Not Given Alprazolam (Xanax Tab*) 0.125 mg PO Q8H PRN PRN Reason: ANXIETY Last Admin: 11/18/16 11:57 Dose: 0.125 mg Hydromorphone HCl (Dilaudid Iv*) 0.5 mg IV SLOW PU Q2HR PRN PRN Reason: SOB/WHEEZING Last Admin: 11/21/16 07:42 Dose: 0.5 mg Methadone HCl (Dolophine Tab*) 5 mg PO BID YANELY Last Admin: 11/20/16 21:41 Dose: Not Given Methylprednisolone Sodium Succinate (Solu-Medrol*) 60 mg IV Q12H YANELY Last Admin: 11/21/16 07:44 Dose: 60 mg Morphine Sulfate (Morphine Oral.Soln 10 Mg*) 5 mg PO Q2HR PRN PRN Reason: SHORTNESS OF BREATH Last Admin: 11/20/16 22:06 Dose: 5 mg Morphine Sulfate (Morphine Inj (Syringe)*) 2 mg IV ONCE ONE Stop: 11/21/16 08:43 Vital Signs 11/20/16 11/20/16 11/20/16 09:19 15:42 16:42 Pulse Rate Respiratory 20 24 18 Rate O2 Sat by Pulse Oximetry 11/20/16 11/21/16 11/21/16 22:06 00:06 03:48 Pulse Rate Respiratory 22 20 20 Rate O2 Sat by Pulse Oximetry 11/21/16 11/21/16 11/21/16 07:42 07:54 08:00 Pulse Rate 162 Respiratory 32 32 32 Rate O2 Sat by Pulse 97 Oximetry Oxygen Devices in Use Now: Nasal Cannula Appearance: using accessory muscles of respiration, eyes closed, briefly opens to name Result Diagrams: 11/18/16 03:35 11/18/16 03:35 Additional Lab and Data: Lab Results 11/17/16 11/17/16 11/17/16 Range/Units 12:30 12:30 12:30 WBC 10.0 (3.5-10.8) 10^3/ul RBC 4.35 (4.0-5.4) 10^6/ul Hgb 13.5 (12.0-16.0) g/dl Hct 40 (35-47) % MCV 92 (80-97) fL MCH 31 (27-31) pg MCHC 34 (31-36) g/dl RDW 14 (10.5-15) % Plt Count 226 (150-450) 10^3/ul MPV 8 (7.4-10.4) um3 Immature Gran % (Auto) 22 H (0-9) % Neut % (Auto) 89.3 H (38-83) % Lymph % (Auto) 7.3 L (25-47) % [place] % (Auto) 2.9 (1-9) % Eos % (Auto) 0 (0-6) % Baso % (Auto) 0.5 (0-2) % Absolute Neuts (auto) 9.0 H (1.5-7.7) 10^3/ul Absolute Lymphs (auto) 0.7 L (1.0-4.8) 10^3/ul Absolute Monos (auto) 0.3 (0-0.8) 10^3/ul Absolute Eos (auto) 0 (0-0.6) 10^3/ul Absolute Basos (auto) 0.1 (0-0.2) 10^3/ul Absolute Nucleated RBC 0 10^3/ul Neutrophils % 64 (38-83) % Band Neutrophils % 21 H (0-8) % Lymphocytes % 10 L (25-47) % Reactive Lymphs % 1 (0-6) % Monocytes % 3 (0-13) % Metamyelocytes % 1 (0-2) % Nucleated RBC % 0 Normal RBC Morphology Normal (Normal) Sodium 127 L (133-145) mmol/L Potassium 4.5 (3.5-5.0) mmol/L Chloride 81 L (101-111) mmol/L Carbon Dioxide 43 H* (22-32) mmol/L Anion Gap 3 (2-11) mmol/L BUN 15 (6-24) mg/dL Creatinine 0.32 L (0.51-0.95) mg/dL Est GFR ( Amer) 276.7 (>60) Est GFR (Non-Af Amer) 215.2 (>60) BUN/Creatinine Ratio 46.9 H (8-20) Glucose 57 L (70-100) mg/dL Lactic Acid 1.1 (0.5-2.0) mmol/L Calcium 10.0 (8.6-10.3) mg/dL Total Bilirubin 0.50 (0.2-1.0) mg/dL AST 28 (13-39) U/L ALT 30 (7-52) U/L Alkaline Phosphatase 88 (34-104) U/L Troponin I 0.06 H* (<0.04) ng/mL C-Reactive Protein 483.76 H (< 5.00) mg/L B-Natriuretic Peptide ( - 100) pg/mL Total Protein 6.0 L (6.4-8.9) g/dL Albumin 2.9 L (3.2-5.2) g/dL Globulin 3.1 (2-4) g/dL Albumin/Globulin Ratio 0.9 L (1-3) 11/17/ Range/Units 12:30 WBC (3.5-10.8) 10^3/ul RBC (4.0-5.4) 10^6/ul Hgb (12.0-16.0) g/dl Hct (35-47) % MCV (80-97) fL MCH (27-31) pg MCHC (31-36) g/dl RDW (10.5-15) % Plt Count (150-450) 10^3/ul MPV (7.4-10.4) um3 Immature Gran % (Auto) (0-9) % Neut % (Auto) (38-83) % Lymph % (Auto) (25-47) % [place] % (Auto) (1-9) % Eos % (Auto) (0-6) % Baso % (Auto) (0-2) % Absolute Neuts (auto) (1.5-7.7) 10^3/ul Absolute Lymphs (auto) (1.0-4.8) 10^3/ul Absolute Monos (auto) (0-0.8) 10^3/ul Absolute Eos (auto) (0-0.6) 10^3/ul Absolute Basos (auto) (0-0.2) 10^3/ul Absolute Nucleated RBC 10^3/ul Neutrophils % (38-83) % Band Neutrophils % (0-8) % Lymphocytes % (25-47) % Reactive Lymphs % (0-6) % Monocytes % (0-13) % Metamyelocytes % (0-2) % Nucleated RBC % Normal RBC Morphology (Normal) Sodium (133-145) mmol/L Potassium (3.5-5.0) mmol/L Chloride (101-111) mmol/L Carbon Dioxide (22-32) mmol/L Anion Gap (2-11) mmol/L BUN (6-24) mg/dL Creatinine (0.51-0.95) mg/dL Est GFR ( Amer) (>60) Est GFR (Non-Af Amer) (>60) BUN/Creatinine Ratio (8-20) Glucose (70-100) mg/dL Lactic Acid (0.5-2.0) mmol/L Calcium (8.6-10.3) mg/dL Total Bilirubin (0.2-1.0) mg/dL AST (13-39) U/L ALT (7-52) U/L Alkaline Phosphatase (34-104) U/L Troponin I (<0.04) ng/mL C-Reactive Protein (< 5.00) mg/L B-Natriuretic Peptide 362 H ( - 100) pg/mL Total Protein (6.4-8.9) g/dL Albumin (3.2-5.2) g/dL Globulin (2-4) g/dL Albumin/Globulin Ratio (1-3) Microbiology and Other Data: Microbiology 11/17/16 20:37 Legionella Urinary Antigen - Final Urine Negative Legionella Streptococcus pneumoniae Ag Screen - Final Negative S. pneumo Antigen 11/17/16 20:37 Influenza Types A,B Antigen (MARKUS) - Final Nasal Specimen received for Influenza A/B Molecular testing 11/17/16 15:05 Nasal Screen MRSA (PCR)(MARKUS) - Final Nasal Mrsa Negative Assess/Plan/Problems-Billing Assessment: Pseudomonas bacteremia, PNA, acute hypoxic respiratory failure in a 56 yo F with hx of end stage COPD now receiving palliative measures. - Patient Problems (1) Comfort measures only status Comment: Appreciate Palliative Care assistance. Continuing comfort measures only. Continue methadone, IV steroids, BZD, prn IV dilaudid. One time morphine now for comfort Prognosis remains likely hours-days.
[2016-11-21] MEDS: Methadone TAB* 5 MG PO SCH ×2 (09:03→20:39)
[2016-11-21] MEDS: Morphine INJ* 2 MG/ML 1 ML CARPUJECT IV PRN ×6 (11:06→18:21)
[2016-11-21] MEDS ORDERED: Atropine 1% OPHTH.SOL* 2 ML BOT - 2 ML SL PRN (14:29)
[2016-11-21] MEDS ORDERED: Morphine PCA ADULT* 5 MG/ML 30 ML PCA SCH (19:00)
[2016-11-21] MEDS: ALPRAZolam TAB* 0.25 MG PO SCH (20:39)
[2016-11-22] MEDS: methylPREDNISolone 125 MG* 2 ML VIAL IV SCH (09:40)
[2016-11-22] MEDS: Methadone TAB* 5 MG PO SCH (09:40)
--- NOTE | 2016-11-23 09:26 | DS ---
DISCHARGE/ NOTE: DATE OF ADMISSION: 11/17/16 DATE OF DEMISE: 11/22/16 PRIMARY CARE PROVIDER: Lisa Jules MD PRIMARY DIAGNOSIS: Sepsis secondary to pneumonia, secondary to chronic obstructive pulmonary disease. SECONDARY DIAGNOSES: Include: 1. Severe chronic obstructive pulmonary disease. 2. Chronic pain. 3. Anxiety. 4. Depression. 5. Congestive heart failure. 6. Diabetes. 7. Hypertension. 8. Adrenal insufficiency. 9. Acute on chronic hypercapnic respiratory failure. HISTORY OF PRESENT ILLNESS AND HOSPITAL COURSE: This is a 56-year-old female with complicated past medical history who presented to the hospital with shortness of breath, admitted for concerns of sepsis secondary to pneumonia and acute on chronic hypercapnic respiratory failure. She was started on antibiotics and steroids, having failed to improved. She was seen in consultation by Dr. Wilson in palliative care and was transitioned to comfort care measures only. She was treated with morphine and Dilaudid for pain and respiratory distress for the last several days before she . She was ultimately transitioned to a morphine drip the day prior to her . She passed peacefully in her room at 9:05 a.m. on 11/22/2016. Her was in the hospital. He was seen in conjunction with the chapel and on calling the father. All questions were answered. At the time of this dictation, the patient's who is her healthcare proxy is unclear whether he would want an autopsy or not. 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 I did relay to the patient's that this did seem unlikely and it was more likely her past smoking history, in conjunction with her COPD, that led to the circumstances surrounding her . TIME SPENT: Greater than 45 minutes were spent on the preparation of this discharge, of which greater than half was spent [id number] with the patient's . CC: Dr. Lisa Jules * [id number]/[facility] #: [id number] [facility]ENTER[facility]
== END 2016-11-22 09:05 | disposition expired | DRG 720 ==
LOC: ED 11:53 → ICU 13:27 → MED 11-18 13:28
PROVIDERS: ADMIT Internal Medicine; ATTEND Internal Medicine
DX: A41.52 Sepsis due to Pseudomonas (principal); J18.9 Pneumonia, unspecified organism; J96.21 Acute and chronic respiratory failure with hypoxia; G93.1 Anoxic brain damage, not elsewhere classified; R64 Cachexia; E46 Unspecified protein-calorie malnutrition; I11.0 Hypertensive heart disease with heart failure; I95.9 Hypotension, unspecified; I24.8 Other forms of acute ischemic heart disease; J96.22 Acute and chronic respiratory failure with hypercapnia; J44.1 Chronic obstructive pulmonary disease with (acute) exacerbation; E27.40 Unspecified adrenocortical insufficiency; E87.1 Hypo-osmolality and hyponatremia; Z68.1 Body mass index [BMI] 19.9 or less, adult; G89.29 Other chronic pain; F41.8 Other specified anxiety disorders; E11.649 Type 2 diabetes mellitus with hypoglycemia without coma; I50.9 Heart failure, unspecified; R74.8 Abnormal levels of other serum enzymes; Z99.81 Dependence on supplemental oxygen; Z79.891 Long term (current) use of opiate analgesic; Z79.52 Long term (current) use of systemic steroids; Z79.899 Other long term (current) drug therapy; Z88.5 Allergy status to narcotic agent; Z88.0 Allergy status to penicillin; Z88.8 Allergy status to other drugs, medicaments and biological substances; Z87.891 Personal history of nicotine dependence; Z86.711 Personal history of pulmonary embolism; Z79.84 Long term (current) use of oral hypoglycemic drugs; Z66 Do not resuscitate
CPT/HCPCS: 36415; 71010; 80048; 80053; 83605; 83880; 84484; 85025; 86140; 87040; 87077; 87186; 87205; 87502; 87641; 87899; 93005; 94640; 94760; 99284; A9270-GY; J0692; J1170; J1644; J2270; J2930; J3370